=== PATIENT | male | born 1930 | race Caucasian/White ===

== ENCOUNTER 2017-09-13 07:23 | Emergency (ER) | payer MEDICARE, OTHER ==
[2017-09-13] MEDS ORDERED: LORazepam 2 MG/ML MDV IVPUSH ONE ×4 (07:28→09:13)
[2017-09-13] MEDS ORDERED: Fosphenytoin 500 MG.PE in Sodium Chloride 0.9% 50 ML IV ONE ×2 (07:39→08:00)
[2017-09-13] MEDS ORDERED: Sodium Chloride 0.9% 1,000 ML IV SCH (07:45)
[2017-09-13] MEDS ORDERED: SODIUM CHLORIDE IV ONE ×2 (08:17→08:30)
[2017-09-13] MEDS ORDERED: [UNRECOGNIZED DRUG - OTHER] IV ONE ×2 (08:17→08:30)
[2017-09-13] MEDS ORDERED: FOSPHENYTOIN IV ONE ×2 (08:17→08:30)
--- NOTE | 2017-09-13 08:36 | EDM.PDOC ---
ED HPI GENERAL MEDICAL PROBLEM - General Chief Complaint: Neuro Symptoms/Deficits Stated Complaint: MEDICAL Time Seen by Provider: 09/13/17 07:30 Source of Information: Reports: EMS, Family History Limitations: Reports: No Limitations - History of Present Illness INITIAL COMMENTS - FREE TEXT/NARRATIVE: Pt has a long history of seizure activity but has not had a seizure for several years, He woke up this am and he had a very extended seizure. When further history was obtained he had a severe seizure in [place] about 37 years ago. He was a heavy drinker at that time. He no longer drinks. According to the family since that seizure they do not know of any other sizures until today. He has been more agitated in the past few days. He does have fairly severe dementia to the [point he does not know some of his grand children. Onset: Today, Sudden Duration: Hour(s): Location: Reports: Head Associated Symptoms: Reports: Confusion, Seizure - Related Data Allergies Allergy/AdvReac Type Severity Reaction Status Date / Time No Known Allergies Allergy Verified 09/13/17 07:30 ED ROS GENERAL - Review of Systems Review Of Systems: See Below Constitutional: Reports: Malaise, Other (pt has been more agitated. ) HEENT: Reports: No Symptoms Respiratory: Reports: No Symptoms Cardiovascular: Reports: No Symptoms Endocrine: Reports: No Symptoms GI/Abdominal: Reports: No Symptoms : Reports: No Symptoms Musculoskeletal: Reports: No Symptoms Skin: Reports: No Symptoms ED EXAM, NEURO - Physical Exam Exam: See Below Text/Narrative:: pt was very confused and somewhat combative on arrival. He had a nother seizure after arrival. He has had 2 smaller seizures since that time. Exam Limited By: Other (pt did need to be restrained.) General Appearance: Alert, Anxious, Other ( confused. pupils are equal and reactive. ) Ears: Normal TMs Nose: Normal Inspection Throat/Mouth: Normal Inspection Respiratory/Chest: No Respiratory Distress Cardiovascular: Regular Rate, Rhythm, Other (pt on ekg has a left bundle branch block) GI/Abdominal: Soft (Male) Exam: Deferred Rectal (Males) Exam: Deferred Neurological: Alert, Other (pt is confused and with all themeds is very sleepy. He has needed to be restraimned/ ) Back Exam: Normal Inspection Extremities: Normal Inspection Psychiatric: Anxious Course - Vital Signs Last Recorded V/S: Last Vital Signs Temp 36.7 C 09/13/17 07:30 Pulse 138 H 09/13/17 09:30 Resp 11 L 09/13/17 08:45 BP 154/131 H 09/13/17 09:30 Pulse Ox 94 L 09/13/17 08:45 - Orders/Labs/Meds Labs: Laboratory Tests 09/13/17 09/13/17 09/13/17 Range/Units 07:52 07:52 08:38 WBC 9.8 (4.5-11.0) K/uL RBC 4.70 (4.30-5.90) M/uL Hgb 15.4 H (12.0-15.0) g/dL Hct 44.5 (40.0-54.0) % MCV 95 (80-98) fL MCH 33 H (27-31) pg MCHC 35 (32-36) % Plt Count 171 (150-400) K/uL Neut % (Auto) 81 H (36-66) % Lymph % (Auto) 12 L (24-44) % [place] % (Auto) 6 (2-6) % Eos % (Auto) 2 (2-4) % Baso % (Auto) 0 (0-1) % Sodium 135 L (140-148) mmol/L Potassium 3.7 (3.6-5.2) mmol/L Chloride 99 L (100-108) mmol/L Carbon Dioxide 19 L (21-32) mmol/L Anion Gap 20.7 H (5.0-14.0) mmol/L BUN 9 (7-18) mg/dL Creatinine 1.7 H (0.8-1.3) mg/dL Est Cr Clr Drug Dosing TNP Estimated GFR (MDRD) 38 L (>60) Glucose 170 H (74-106) mg/dL Calcium 9.0 (8.5-10.1) mg/dL Total Bilirubin 1.0 (0.2-1.0) mg/dL AST 33 (15-37) U/L ALT 25 (12-78) U/L Alkaline Phosphatase 84 (46-116) U/L Total Protein 6.8 (6.4-8.2) g/dL Albumin 3.4 (3.4-5.0) g/dL Globulin 3.4 (2.3-3.5) g/dL Albumin/Globulin Ratio 1.0 L (1.2-2.2) Urine Color Yellow Urine Appearance Clear Urine pH 6.5 (4.5-8.0) Ur Specific [place] 1.010 (1.008-1.030) Urine Protein 500 H (NEGATIVE) mg/dL Urine Glucose (UA) Normal (NEGATIVE) mg/dL Urine Ketones Negative (NEGATIVE) mg/dL Urine Occult Blood Moderate (NEGATIVE) Urine Nitrite Negative (NEGAITVE) Urine Bilirubin Negative (NEGATIVE) Urine Urobilinogen Normal (NORMAL) mg/dL Ur Leukocyte Esterase Negative (NEGATIVE) Urine RBC 5-10 H (0-5) Urine WBC Not seen (0-5) Ur Epithelial Cells Not seen Amorphous Sediment Not seen Urine Bacteria Not seen Urine Mucus Not seen Meds: Medications Discontinued Medications Generic Name Dose Route Start Last Admin Trade Name Freq PRN Reason Stop Dose Admin Sodium Chloride 1,000 mls @ 200 mls/hr 09/13/17 07:45 09/13/17 08:26 Normal Saline IV 200 mls/hr ASDIRECTED MIKHAIL Administration Fosphenytoin Sodium 500 mg.pe/ 60 mls @ 200 mls/hr 09/13/17 08:00 09/13/17 07 :55 Sodium Chloride IV 09/13/17 08:17 200 mls/hr ONETIME ONE Administration Fosphenytoin Sodium 250 mg.pe/ 55 mls @ 200 mls/hr 09/13/17 08:30 09/13/17 08 :40 Sodium Chloride IV 09/13/17 08:46 200 mls/hr NOW ONE Administration Lorazepam 0.5 mg 09/13/17 07:28 09/13/17 07:32 Ativan IVPUSH 09/13/17 07:29 0.5 mg ONETIME ONE Administration Lorazepam 1 mg 09/13/17 07:47 09/13/17 07:36 Ativan IVPUSH 09/13/17 07:48 1 mg ONETIME ONE Administration Lorazepam 0.5 mg 09/13/17 07:48 09/13/17 07:34 Ativan IVPUSH 09/13/17 07:49 0.5 mg ONETIME ONE Administration Lorazepam 1 mg 09/13/17 09:13 09/13/17 09:00 Ativan IVPUSH 09/13/17 09:14 1 mg ONETIME ONE Administration - Re-Assessments/Exams Free Text/Narrative Re-Assessment/Exam: 09/13/17 09:10 pt was given iv ativan a total of 2.5 mg. he has been given dilantin 1v a totAL of 750mg. He does have a creatnine of 1.7. His lab work otherwise Looked fairly good. He had a cat scan of the head which did not have acute findings. hE DID CONTINUE TO HAVE MULTIPLE SEIZURES. 09/18/17 10:27 Departure - Departure Time of Disposition: 09:12 Disposition: DC/Tfer to Acute Hospital 02 Condition: Fair Clinical Impression: Increasing frequency of seizure activity, Renal insufficiency - Discharge Information Referrals: PCP,None [Primary Care Provider] - Forms: ED Department Discharge Care Plan Goals: transfer to [facility]. Critical Care Note - Critical Care Note Total Time (mins): 30 Comments: pt arrived after having a extended seizure. He has had 3 other sizures since that time. He has been given 3.5 mg of ativan and he has been loaded with iv dilantin. He had a cat scan of the head which was neg. He has o2 therapy to support him. His bp has been up and down.
== END 2017-09-13 09:40 ==
LOC: JP.ED 07:23
DX: R56.9 Unspecified convulsions (principal); N28.9 Disorder of kidney and ureter, unspecified
CPT/HCPCS: 36415; 51702; 70450; 80053; 81001; 82962; 85025; 93005; 96361; 96365; 96375; 99285; J2060; J7040; J7050; Q2009; 93010

== ENCOUNTER 2017-11-25 13:22 | Emergency (ER) | payer MEDICARE, OTHER ==
[2017-11-25] MEDS ORDERED: Ketorolac 30 MG/ML SDV IM ONE (14:12)
[2017-11-25] MEDS ORDERED: Glycerin Adult 2.1 GM Supp RECTAL ONE (14:13)
[2017-11-25] MEDS ORDERED: Acetaminophen/HYDROcodone 325-5 MG Tab PO ONE (14:13)
--- NOTE | 2017-11-25 14:19 | EDM.PDOC ---
ED HPI GENERAL MEDICAL PROBLEM - General Chief Complaint: Back Pain or Injury Stated Complaint: BACK PAIN VIA [place]TH Time Seen by Provider: 11/25/17 14:00 Source of Information: Reports: Patient, Family, Old Records, RN History Limitations: Reports: No Limitations - History of Present Illness INITIAL COMMENTS - FREE TEXT/NARRATIVE: 87 yo male with dementia presents via EMS from his home accompanied by his daughter. He fell on Wednesday landing forcibly on his butt. Now complains of mid back pain much worse with movement. Has not had a BM since the injury. Is urinating in a jug. Eating and drinking OK. Not getting out of bed due to the pain. Onset: Sudden Onset Date: 11/23/17 Duration: Day(s): (2), Constant Location: Reports: Back. Denies: Radiates to Quality: Reports: Sharp Severity: Severe (with movement, no pain at rest.) Improves with: Reports: Rest Worsens with: Reports: Movement Context: Reports: Trauma (elderly fall) Associated Symptoms: Reports: No Other Symptoms Treatments [place] SLABS: Reports: Other (see below) (none) - Related Data Allergies Allergy/AdvReac Type Severity Reaction Status Date / Time No Known Allergies Allergy Verified 11/25/17 13:29 Home Meds: Home Meds Acetaminophen/HYDROcodone [Woodruff 325-5 MG] 1 - 2 tab PO Q6H PRN #20 tab [Rx] Cyanocobalamin (Vitamin B-12) [Vitamin B-12] 1,000 mcg SL DAILY 11/25/17 [ History] Lisinopril 40 mg PO DAILY 11/25/17 [History] Metoprolol Tartrate 100 mg PO BID 11/25/17 [History] Simvastatin [Zocor] 20 mg PO BEDTIME 11/25/17 [History] amLODIPine Besylate [Amlodipine Besylate] 5 mg PO DAILY 11/25/17 [History] hydrALAZINE [Apresoline] 50 mg PO BID 11/25/17 [History] levETIRAcetam [Keppra] 500 mg PO BID 11/25/17 [History] Past Medical History - Past Health History Medical/Surgical History: Denies Medical/Surgical History Cardiovascular History: Reports: High Cholesterol, Hypertension, [place], Stents Genitourinary History: Reports: Retention, Urinary Musculoskeletal History: Reports: Back Pain, Chronic, Fracture Neurological History: Reports: Alzheimers Disease, Seizure Oncologic (Cancer) History: Reports: Colon, Malignant Melanoma Dermatologic History: Reports: Melanoma - Past Surgical History Cardiovascular Surgical History: Reports: Coronary Artery Stent GI Surgical History: Reports: Small Bowel Musculoskeletal Surgical History: Reports: ORIF Social & Family History - Tobacco Use Smoking Status *Q: Never Smoker - Caffeine Use Caffeine Use: Reports: Coffee - Recreational Drug Use Recreational Drug Use: No ED ROS GENERAL - Review of Systems Review Of Systems: See Below Constitutional: Reports: No Symptoms HEENT: Reports: No Symptoms Respiratory: Reports: No Symptoms Cardiovascular: Reports: No Symptoms GI/Abdominal: Reports: Constipation : Reports: No Symptoms Musculoskeletal: Reports: Back Pain Skin: Reports: No Symptoms Neurological: Reports: Confusion (chronic due to dementia) ED EXAM,LOWER BACK PAIN/INJURY - Physical Exam Exam: See Below Exam Limited By: No Limitations General Appearance: Alert, WD/WN, No Apparent Distress Eye Exam: Bilateral Eye: Normal Inspection Ears: Normal External Exam, Normal Canal, Hearing Grossly Normal Nose: Normal Inspection, Normal Mucosa, No Blood Throat/Mouth: Normal Inspection, Normal Lips, Normal Oropharynx, Normal Voice, No Airway Compromise Head: Atraumatic, Normocephalic Neck: Normal Inspection, Supple Respiratory/Chest: No Respiratory Distress, Lungs Clear, Normal Breath Sounds, No Accessory Muscle Use Cardiovascular: Regular Rate, Rhythm, No Edema GI/Abdominal: Normal Bowel Sounds, Soft, Non-Tender Back Exam: Normal Inspection, Vertebral Tenderness (upper L spine/lower T spine) . No: CVA Tenderness (R), CVA Tenderness (L) Extremities: Normal Inspection, Normal Range of Motion, Non-Tender, No Pedal Edema Neurological: Alert, Normal Mood/Affect, CN II-XII Intact, No Motor/Sensory Deficits Psychiatric: Normal Affect, Normal Mood Skin Exam: Warm, Dry, Intact, Normal Color, No Rash Course - Vital Signs Text/Narrative:: After Toradol 30 mg IM and Woodruff 1 po was able to walk with a walker in the ER. Last Recorded V/S: Last Vital Signs Temp 37.1 C 11/25/17 15:23 Pulse 60 11/25/17 15:23 Resp 14 11/25/17 15:23 BP 165/99 H 11/25/17 15:23 Pulse Ox 99 11/25/17 15:23 - Orders/Labs/Meds Orders: Active Orders 24 hr Category Date Time Status Lumbar Spine 2 or 3V [CR] Stat Exams 11/25/17 14:19 Ordered Thoracic Spine 2V [CR] Stat Exams 11/25/17 14:20 Taken Meds: Medications Discontinued Medications Generic Name Dose Route Start Last Admin Trade Name Freq PRN Reason Stop Dose Admin Hydrocodone Bitart/Acetaminophen 1 tab 11/25/17 14:13 11/25/17 14:18 Woodruff 325-5 Mg PO 11/25/17 14:14 1 tab ONETIME ONE Administration Glycerin 1 supp 11/25/17 14:13 11/25/17 14:19 Sani-Supp Adult RECTAL 11/25/17 14:14 1 supp ONETIME ONE Administration Ketorolac Tromethamine 30 mg 11/25/17 14:12 11/25/17 14:18 Toradol IM 11/25/17 14:13 30 mg STAT ONE Administration Polyethylene Glycol 17 gm 11/25/17 14:40 Miralax PO 11/25/17 14:41 ONETIME ONE - Radiology Interpretation Free Text/Narrative:: L spine X-ray-degen changes, no clear compression fx's T-spine X-ray-degen changes, no clear compression fx's Departure - Departure Time of Disposition: 15:46 Disposition: Home, Self-Care 01 Condition: Fair Clinical Impression: Back pain Qualifiers: Back pain location: thoracic back pain Chronicity: acute Back pain laterality: midline Qualified Code(s): M54.6 - Pain in thoracic spine - Discharge Information Prescriptions: Acetaminophen/HYDROcodone [Woodruff 325-5 MG] 1 - 2 tab PO Q6H PRN #20 tab PRN Reason: Pain Referrals: Bogdan Roe MD [Primary Care Provider] - Forms: ED Department Discharge - My Orders Last 24 Hours: My Active Orders 11/25/17 14:19 Lumbar Spine 2 or 3V [CR] Stat 11/25/17 14:20 Thoracic Spine 2V [CR] Stat - Assessment/Plan Last 24 Hours: My Active Orders 11/25/17 14:19 Lumbar Spine 2 or 3V [CR] Stat 11/25/17 14:20 Thoracic Spine 2V [CR] Stat
[2017-11-25] MEDS ORDERED: Polyethylene Glycol 3350 Powder 17 GM Packet PO ONE (14:40)
--- NOTE | 2017-11-26 09:12 | CR ---
Lumbar Spine 2 or 3V CLINICAL HISTORY: Mid back pain FINDINGS: There is a mild compression deformity of T11 and T12 of unknown chronology. There is modera te diffuse degenerative disc disease with moderate to severe spondylosis. There is moderate osteoarth ropathy in the lower lumbar facets. IMPRESSION: Severe diffuse spondylosis Moderate osteoarthropathy. Mild compression deformities T11 and T12 of unknown chronology
--- NOTE | 2017-11-26 10:04 | CR ---
Thoracic Spine 2V CLINICAL HISTORY: Fall, pain FINDINGS: There are mild compression deformities of T11 and T12. Age unknown. There is diffuse disc s pace narrowing and spondylosis. Pedicles appear intact. Impression: Mild compression deformities of T11 and T12 age unknown. Moderate diffuse degenerative disc disease with spondylosis Incidental note of bilateral cervical ribs
== END 2017-11-25 16:18 | disposition home or self-care (01) ==
LOC: JP.ED 13:22
DX: M54.6 Pain in thoracic spine (principal); E78.00 Pure hypercholesterolemia, unspecified; I10 Essential (primary) hypertension; I25.2 Old myocardial infarction
CPT/HCPCS: 72070; 72100; 96372; 99284; A9270; J1885

== ENCOUNTER 2017-11-29 11:16 | Inpatient (IN) | payer MEDICARE, OTHER ==
[2017-11-29] MEDS ORDERED: Ketorolac 30 MG/ML SDV IVPUSH ONE (11:33)
--- NOTE | 2017-11-29 11:39 | EDM.PDOC ---
ED HPI GENERAL MEDICAL PROBLEM - General Chief Complaint: General Stated Complaint: [facility] Time Seen by Provider: 11/29/17 11:25 Source of Information: Reports: Patient, Old Records, RN History Limitations: Reports: Other (patient has dementia) - History of Present Illness INITIAL COMMENTS - FREE TEXT/NARRATIVE: 87 yo male was seen in the ER the end of last week for back pain that may have been some mild compression fx's of T11 and T12, radiology was not clear on the age of these since there were no old films. Patient was asked to take ibuprofen and [place] for the pain, to take Miralax once or twice daily to prevent constipation, and to see Dr. Roe early this week for recheck. This patient states he lives with family, is not taking the Miralax, and still has back pain. The family did call Dr. Roe's office today and were directed to the ER. It is not clear how much of Xavi's history today is accurate as family is not yet here and EMS contradicts some of what Xavi is telling me(they implied constipation was reported by family). Family feels that are not able to care for him anymore with the added problem of back pain with reduced mobility. Family inquired about placement. Daughter says he's not eating, drinking, or pooping and his urine is dark. Onset Date: 11/26/17 Duration: Day(s):, Constant Location: Reports: Back Quality: Reports: Ache Severity: Moderate Improves with: Reports: Rest Worsens with: Reports: Movement Context: Reports: Trauma (elderly fall) Associated Symptoms: Reports: Other (? 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: Other (see below) (unclear, [place] and ibuprofen prescribed as well as Miralax) - Related Data Allergies Allergy/AdvReac Type Severity Reaction Status Date / Time No Known Allergies Allergy Verified 11/29/17 11:25 Home Meds: Home Meds Acetaminophen/HYDROcodone [[place] 325-5 MG] 1 - 2 tab PO Q6H PRN #20 tab [Rx] Cyanocobalamin (Vitamin B-12) [Vitamin B-12] 1,000 mcg SL DAILY 11/25/17 [ History] Lisinopril 40 mg PO DAILY 11/25/17 [History] Metoprolol Tartrate 100 mg PO BID 11/25/17 [History] Simvastatin [Zocor] 20 mg PO BEDTIME 11/25/17 [History] amLODIPine Besylate [Amlodipine Besylate] 5 mg PO DAILY 11/25/17 [History] hydrALAZINE [Apresoline] 50 mg PO BID 11/25/17 [History] levETIRAcetam [Keppra] 500 mg PO BID 11/25/17 [History] Polyethylene Glycol 3350 [MiraLAX] 1 packet PO BID 11/29/17 [History] Past Medical History - Past Health History Medical/Surgical History: Denies Medical/Surgical History Cardiovascular History: Reports: High Cholesterol, Hypertension, PA, Stents Genitourinary History: Reports: Retention, Urinary Musculoskeletal History: Reports: Back Pain, Chronic, Fracture Neurological History: Reports: Alzheimers Disease, Seizure Oncologic (Cancer) History: Reports: Colon, Malignant Melanoma Dermatologic History: Reports: Melanoma - Past Surgical History Cardiovascular Surgical History: Reports: Coronary Artery Stent GI Surgical History: Reports: Small Bowel Musculoskeletal Surgical History: Reports: ORIF Social & Family History - Tobacco Use Smoking Status *Q: Never Smoker - Caffeine Use Caffeine Use: Reports: Coffee - Recreational Drug Use Recreational Drug Use: No ED ROS GENERAL - Review of Systems Review Of Systems: See Below Constitutional: Reports: No Symptoms HEENT: Reports: No Symptoms Respiratory: Reports: No Symptoms Cardiovascular: Reports: No Symptoms GI/Abdominal: Reports: No Symptoms. Denies: Constipation (denied by patient, reported by EMS per family) : Reports: No Symptoms Musculoskeletal: Reports: Back Pain Skin: Reports: No Symptoms Neurological: Reports: No Symptoms Psychiatric: Reports: Confusion (mild, chronic due to dementia) ED EXAM, GENERAL - Physical Exam Exam: See Below Exam Limited By: No Limitations General Appearance: Alert, WD/WN, No Apparent Distress Eye Exam: Bilateral Eye: Normal Inspection Ears: Normal External Exam, Normal Canal, Hearing Grossly Normal, Normal TMs Ear Exam: Bilateral Ear: Auricle Normal, Canal Normal, TM normal Nose: Normal Inspection, Normal Mucosa Throat/Mouth: Normal Inspection, Normal Lips, Normal Oropharynx, Normal Voice, No Airway Compromise. No: Normal Teeth (poor dentitian) Head: Atraumatic, Normocephalic Neck: Normal Inspection, Supple Respiratory/Chest: No Respiratory Distress, Lungs Clear, Normal Breath Sounds, No Accessory Muscle Use GI/Abdominal: Normal Bowel Sounds, Soft, Non-Tender Back Exam: Normal Inspection, Paraspinal Tenderness, Vertebral Tenderness (mid back). No: CVA Tenderness (R), CVA Tenderness (L) Extremities: Normal Inspection, Normal Range of Motion, Non-Tender, No Pedal Edema Neurological: Alert, Oriented, CN II-XII Intact, No Motor/Sensory Deficits Psychiatric: Normal Affect, Normal Mood Skin Exam: Warm, Dry, Intact, Normal Color, No Rash Lymphatic: No Adenopathy Course - Vital Signs Last Recorded V/S: Last Vital Signs Temp 35.4 C 12/01/17 15:00 Pulse 50 L 12/01/17 15:00 Resp 16 12/01/17 15:00 BP 107/64 12/01/17 15:00 Pulse Ox 95 12/01/17 15:00 - Orders/Labs/Meds Orders: Medication Orders Acetaminophen (Tylenol Extra Strength) 1,000 mg PO TID [facility] Last Admin: 12/01/17 14:55 Dose: 1,000 mg Admin: 12/01/17 10:00 Dose: 1,000 mg Admin: 11/30/17 21:02 Dose: 1,000 mg Admin: 11/30/17 13:36 Dose: 1,000 mg Admin: 11/30/17 09:00 Dose: 1,000 mg Admin: 11/29/17 19:11 Dose: 1,000 mg Amlodipine Besylate (Norvasc) 5 mg PO DAILY [facility] Last Admin: 12/01/17 10:01 Dose: 5 mg Aspirin (Halfprin) 81 mg PO DAILY [facility] Last Admin: 12/01/17 10:00 Dose: 81 mg Admin: 11/30/17 09:03 Dose: 81 mg Admin: 11/29/17 20:35 Dose: 81 mg Bisacodyl (Dulcolax) 10 mg RECTAL DAILY PRN PRN Reason: CONSTIPATION Gabapentin (Neurontin) 200 mg PO BID [facility] Last Admin: 12/01/17 12:44 Dose: 200 mg Haloperidol (Haldol) 1 mg PO Q4H PRN PRN Reason: Agitation Lidocaine (Lidoderm 5%) 700 mg TOP Q24H [facility] Last Admin: 12/01/17 10:01 Dose: 700 mg Magnesium Hydroxide (Milk Of Magnesia) 30 ml PO BID PRN PRN Reason: CONSTIPATION Melatonin (Melatonin) 9 mg PO BEDTIME [facility] Last Admin: 11/30/17 20:58 Dose: 9 mg Admin: 11/29/17 20:35 Dose: 9 mg Remove Lidocaine (Patch) 0 each TOP Q24H [facility] Metoprolol Tart (100mg (Ptom)) 0 each PO BID [facility] Last Admin: 12/01/17 10:01 Dose: 1 each Admin: 11/30/17 21:00 Dose: 1 each Hydralazine 50mg ( (Ptom)) 0 each PO BID [facility] Last Admin: 12/01/17 10:01 Dose: 1 each Admin: 11/30/17 21:01 Dose: 1 each Lisinopril 40mg ( (Ptom)) 0 each PO DAILY [facility] Last Admin: 12/01/17 10:01 Dose: 1 each Levetiracetam 500mg ((Ptom)) 0 each PO BID [facility] Last Admin: 12/01/17 10:00 Dose: 1 each Admin: 11/30/17 21:00 Dose: 1 each Polyethylene Glycol (Miralax) 17 gm PO DAILY PRN PRN Reason: CONSTIPATION Risperidone (Risperidal) 0.5 mg PO BEDTIME [facility] Last Admin: 11/30/17 21:02 Dose: 0.5 mg Tamsulosin HCl (Flomax) 0.4 mg PO DAILY [facility] Last Admin: 12/01/17 10:00 Dose: 0.4 mg Admin: 11/30/17 11:57 Dose: Not Given Admin: 11/30/17 09:01 Dose: 0.4 mg Labs: Laboratory Tests 11/29/17 11/29/17 11/29/17 Range/Units 11:37 11:37 13:52 WBC 5.3 (4.5-11.0) K/uL RBC 4.09 L (4.30-5.90) M/uL Hgb 13.4 D (12.0-15.0) g/dL Hct 38.9 L (40.0-54.0) % MCV 95 (80-98) fL MCH 33 H (27-31) pg MCHC 34 (32-36) % Plt Count 149 L (150-400) K/uL Sodium 141 (140-148) mmol/L Potassium 3.4 L (3.6-5.2) mmol/L Chloride 105 (100-108) mmol/L Carbon Dioxide 24 (21-32) mmol/L Anion Gap 15.4 H (5.0-14.0) mmol/L BUN 22 H D (7-18) mg/dL Creatinine 1.2 (0.8-1.3) mg/dL Est Cr Clr Drug Dosing 43.54 mL/min Estimated GFR (MDRD) 58 L (>60) Glucose 116 H (74-106) mg/dL Calcium 8.9 (8.5-10.1) mg/dL Urine Color Yellow Urine Appearance Clear Urine pH 5.0 (4.5-8.0) Ur Specific [place] 1.015 (1.008-1.030) Urine Protein 500 H (NEGATIVE) mg/dL Urine Glucose (UA) Normal (NEGATIVE) mg/dL Urine Ketones Negative (NEGATIVE) mg/dL Urine Occult Blood Negative (NEGATIVE) Urine Nitrite Negative (NEGAITVE) Urine Bilirubin Small (NEGATIVE) Urine Urobilinogen 4 (NORMAL) mg/dL Ur Leukocyte Esterase Negative (NEGATIVE) Urine RBC 0-5 (0-5) Urine WBC 0-5 (0-5) Ur Epithelial Cells Not seen Amorphous Sediment Not seen Urine Bacteria Not seen Urine Mucus Not seen Meds: Medications Generic Name Dose Route Start Last Admin Trade Name Freq PRN Reason Stop Dose Admin Acetaminophen 1,000 mg 11/29/17 21:00 12/01/17 14:55 Tylenol Extra Strength PO 1,000 mg TID MIKHAIL Administration Amlodipine Besylate 5 mg 12/01/17 09:00 12/01/17 10:01 Norvasc PO 5 mg DAILY MIKHAIL Administration Aspirin 81 mg 11/29/17 17:00 12/01/17 10:00 Halfprin PO 81 mg DAILY MIKHAIL Administration Bisacodyl 10 mg 11/29/17 16:15 Dulcolax RECTAL DAILY PRN CONSTIPATION Gabapentin 200 mg 12/01/17 11:30 12/01/17 12:44 Neurontin PO 200 mg BID MIKHAIL Administration Haloperidol 1 mg 11/30/17 10:52 Haldol PO Q4H PRN Agitation Lidocaine 700 mg 12/01/17 10:00 12/01/17 10:01 Lidoderm 5% TOP 700 mg Q24H MIKHAIL Administration Magnesium Hydroxide 30 ml 11/29/17 16:15 Milk Of Magnesia PO BID PRN CONSTIPATION Melatonin 9 mg 11/29/17 21:00 11/30/17 20:58 Melatonin PO 9 mg BEDTIME MIKHAIL Administration Remove Lidocaine 0 each 12/01/17 22:00 Patch TOP Q24H MIKHAIL Metoprolol Tart 0 each 11/30/17 21:00 12/01/17 10:01 100mg (Ptom) PO 1 each BID MIKHAIL Administration Hydralazine 50mg ( 0 each 11/30/17 21:00 12/01/17 10:01 Ptom) PO 1 each BID MIKHAIL Administration Lisinopril 40mg ( 0 each 12/01/17 09:00 12/01/17 10:01 Ptom) PO 1 each DAILY MIKHAIL Administration Levetiracetam 500mg 0 each 11/30/17 21:00 12/01/17 10:00 (Ptom) PO 1 each BID MIKHAIL Administration Polyethylene Glycol 17 gm 11/29/17 17:00 Miralax PO DAILY PRN CONSTIPATION Risperidone 0.5 mg 11/30/17 21:00 11/30/17 21:02 Risperidal PO 0.5 mg BEDTIME MIKHAIL Administration Tamsulosin HCl 0.4 mg 11/29/17 17:00 12/01/17 10:00 Flomax PO 0.4 mg DAILY MIKHAIL Administration Discontinued Medications Generic Name Dose Route Start Last Admin Trade Name Freq PRN Reason Stop Dose Admin Amlodipine Besylate 5 mg 11/29/17 17:00 11/30/17 09:03 Norvasc PO 5 mg DAILY MIKHAIL Administration Amlodipine Besylate Confirm 11/29/17 20:41 11/30/17 11:57 Norvasc Administered 11/29/17 20:42 Not Given Dose 5 mg .ROUTE .STK-MED ONE Bisacodyl 10 mg 11/29/17 11:49 11/29/17 11:57 Dulcolax RECTAL 11/29/17 11:50 10 mg ONETIME ONE Administration Hydralazine HCl 50 mg 11/29/17 21:00 11/30/17 09:01 Apresoline PO 50 mg BID MIKHAIL Administration Sodium Chloride 1,000 mls @ 100 mls/hr 11/29/17 16:15 11/29/17 20:30 Normal Saline IV 100 mls/hr ASDIRECTED MIKHAIL Administration Ketorolac Tromethamine 15 mg 11/29/17 11:33 11/29/17 11:44 Toradol IVPUSH 11/29/17 11:34 15 mg ONETIME ONE Administration Levetiracetam 500 mg 11/30/17 09:00 11/30/17 09:02 Keppra PO 500 mg BID MIKHAIL Administration Levetiracetam Confirm 11/29/17 21:30 11/29/17 21:30 Keppra Administered 11/29/17 21:31 500 mg Dose Administration 500 mg .ROUTE .STK-MED ONE Lisinopril 40 mg 11/29/17 17:00 11/30/17 09:02 Prinivil PO 40 mg DAILY MIKHAIL Administration Lorazepam 1 mg 11/30/17 01:40 11/30/17 01:50 Ativan IV 11/30/17 01:41 1 mg NOW ONE Administration Lorazepam Confirm 11/30/17 01:44 11/30/17 11:58 Ativan Administered 11/30/17 01:45 Not Given Dose 2 mg .ROUTE .STK-MED ONE Metoprolol Tartrate 100 mg 11/29/17 21:00 11/30/17 09:00 Lopressor PO 100 mg BID MIKHAIL Administration Potassium Chloride 40 meq 11/29/17 17:00 11/29/17 20:35 Klor-Con M20 PO 11/29/17 17:01 40 meq ONETIME ONE Administration Sodium Chloride 10 ml 11/29/17 18:00 11/30/17 11:57 Saline Flush IV 11/29/17 18:01 Not Given ONETIME ONE Tamsulosin HCl 0.4 mg 11/29/17 13:54 11/29/17 14:12 Flomax PO 11/29/17 13:55 0.4 mg ONETIME ONE Administration Departure - Departure Time of Disposition: 17:00 Disposition: Refer to Observation Condition: Fair Clinical Impression: Back pain Qualifiers: Back pain location: thoracic back pain Chronicity: acute Back pain laterality: midline Qualified Code(s): M54.6 - Pain in thoracic spine Constipation Qualifiers: Constipation type: unspecified constipation type Qualified Code(s): K59.00 - Constipation, unspecified BPH (benign prostatic hyperplasia) Qualifiers: Lower urinary tract symptom presence: symptoms present Lower urinary tract symptom detail: incomplete bladder emptying Qualified Code(s): N40.1 - Benign prostatic hyperplasia with lower urinary tract symptoms; R39.14 - Feeling of incomplete bladder emptying Dementia Qualifiers: Dementia type: unspecified type Dementia behavioral disturbance: without behavioral disturbance Qualified Code(s): F03.90 - Unspecified dementia without behavioral disturbance - Discharge Information
[2017-11-29] MEDS ORDERED: Bisacodyl 10 MG Supp RECTAL ONE (11:49)
[2017-11-29] MEDS ORDERED: Tamsulosin 0.4 MG Cap.ER PO ONE (13:54)
[2017-11-29] MEDS ORDERED: Sodium Chloride 0.9% 1,000 ML IV SCH (16:15)
[2017-11-29] MEDS ORDERED: Polyethylene Glycol 3350 Powder 17 GM Packet PO PRN (17:00)
[2017-11-29] MEDS ORDERED: Sodium Chloride 0.9% 10 ML Syringe IV ONE (18:00)
[2017-11-29] MEDS: Acetaminophen 500 MG Tab PO SCH (19:11)
[2017-11-29] MEDS: Potassium Chloride 20 MEQ Tab.ER PO ONE (20:35)
[2017-11-29] MEDS: amLODIPine 5 MG Tab PO SCH (20:35)
[2017-11-29] MEDS: Melatonin 3 MG Tab PO SCH (20:35)
[2017-11-29] MEDS: hydrALAZINE 25 MG Tab PO SCH (20:35)
[2017-11-29] MEDS: Metoprolol Tartrate 50 MG Tab PO SCH (20:35)
[2017-11-29] MEDS: Lisinopril 20 MG Tab PO SCH (20:35)
[2017-11-29] MEDS: Aspirin 81 MG Tab.EC PO SCH (20:35)
[2017-11-29] MEDS ORDERED: amLODIPine 5 MG Tab ONE (20:41)
[2017-11-29] MEDS: levETIRAcetam 250 MG Tab ONE (21:30)
[2017-11-30] MEDS ORDERED: LORazepam 2 MG/ML SDV ONE (01:44)
[2017-11-30] MEDS: LORazepam 2 MG/ML SDV IV ONE ×2 (01:50→11:58)
[2017-11-30] MEDS: Metoprolol Tartrate 50 MG Tab PO SCH ×2 (09:00→11:58)
[2017-11-30] MEDS ORDERED: levETIRAcetam 250 MG Tab PO SCH (09:00)
[2017-11-30] MEDS: Acetaminophen 500 MG Tab PO SCH ×4 (09:00→21:02)
[2017-11-30] MEDS: hydrALAZINE 25 MG Tab PO SCH ×2 (09:01→11:58)
[2017-11-30] MEDS: Tamsulosin 0.4 MG Cap.ER PO SCH ×2 (09:01→11:57)
[2017-11-30] MEDS: Lisinopril 20 MG Tab PO SCH ×2 (09:02→11:57)
[2017-11-30] MEDS: Aspirin 81 MG Tab.EC PO SCH ×2 (09:03→11:57)
[2017-11-30] MEDS: amLODIPine 5 MG Tab PO SCH ×2 (09:03→11:57)
--- NOTE | 2017-11-30 09:56 | HP ---
CHIEF COMPLAINT: Weakness. HISTORY OF PRESENT ILLNESS: Xavi presents to the emergency room today with several family members. He has advanced dementia and is unable to provide any history at this time. His daughters report that he has had significant difficulty over the past week or so after he had a fall that resulted in mild compression fractures of his lumbar spine as well as mild head trauma. He was evaluated in the emergency room at that time and other than the mild compression fractures, no acute abnormalities were found. They report that since that time, he has been hollering out in pain and appears to have lower back pain. He tells me that currently he is pain-free and does not think he has been having back pain. They report that he has been more confused than usual over the past week. He has been hallucinating and seeing a dog running around the emergency room as well as wanting a ladder to get up into the ceiling, so he can be near the people who are up there. They have noted constipation, he has not had a bowel movement in approximately 1 week. He did have a small one today. They have noticed a decrease in his appetite and he has had very little to eat or drink and the quantity has been decreasing over the past several days. He has not reported any headaches. They have noticed increasing weakness and unsteadiness on his feet. He has been very sleepy. He has been refusing to take pills from time to time. They felt that they were unable to care for him today, so he was brought in for evaluation. PAST MEDICAL HISTORY: Remarkable for essential hypertension, hypercholesterolemia, Alzheimer's dementia, recent admission with acute kidney injury on top of chronic kidney disease, probable BPH, obesity. MEDICATIONS: Metoprolol tartrate 100 mg by mouth twice daily, amlodipine 5 mg by mouth daily, hydralazine 50 mg by mouth twice daily, aspirin 81 mg by mouth daily, simvastatin 20 mg by mouth at bedtime, Keppra 500 mg by mouth twice daily, hydrocodone 5/325 mg by mouth as needed for pain. SOCIAL HISTORY: Unable to review at this time because of his dementia. Family reports that he is not currently using tobacco or alcohol products. FAMILY HISTORY: Unable to review at this time because of his dementia. REVIEW OF SYSTEMS: A complete 12-point review of systems was attempted, but because of his dementia, this was unreliable. PHYSICAL EXAMINATION: VITAL SIGNS: Blood pressure is 161/115 with a pulse of 61, respirations are 18, and O2 saturations 94% on room air. GENERAL: He is resting comfortably, he is not in any acute distress. HEENT: Mucous membranes are dry. He has poor dentition. Slight mattering of the right eye. Pupils are equal, round, and reactive to light. NECK: Supple. No lymphadenopathy, thyromegaly, or tenderness. CARDIAC: Regular rate and rhythm. No murmur, rub, or gallop. RESPIRATORY: Lungs are clear to auscultation bilaterally. No wheezing. ABDOMEN: Obese, soft, nontender, nondistended with no masses. BACK: He has very poor range of motion. He has vertebral tenderness around the lower thoracic spine, but no significant muscle spasm. EXTREMITIES: Warm and well perfused. There is no clubbing or cyanosis. He has no lower extremity edema. MUSCULOSKELETAL: No joint deformities or asymmetries. SKIN: He has several bruises in the right upper arm, left forearm as well as his left hand, but no rashes. NEUROLOGICAL: Cranial nerves II through XII are grossly intact. No significant dysarthria. No asymmetry of strength and strength is 5/5 throughout upper and lower extremities. Reflexes at the biceps, patella are both 1, slightly hypoactive, but symmetric. PSYCHIATRIC: He is resting comfortably, appears to have normal mood and is not anxious or agitated at this time. LABORATORY STUDIES: Potassium is 3.4. Kidney function was normal. White count was normal. IMAGING: Head CT is pending. ASSESSMENT AND PLAN: 1. Back pain with T11 and T12 compression fractures. These were mild and have been present for 1 week. He appears comfortable at this time and is not reporting any pain. Has an adverse reaction to most narcotics with increased agitation. Planning scheduled acetaminophen as well as a heating pad. We could consider lidocaine patch or topical analgesics. Physical Therapy will work with him tomorrow. Hopefully, this will improve his mobility. 2. Visual hallucinations. He did have a fall with head trauma and may have subdural hematoma. Head CT is pending. Concussion type symptoms could be possible with his fall and closed head trauma 1 week ago. No strong evidence to support infection at this time. No significant concerns with his home medications at this time. Planning melatonin at bedtime and could consider low-dose Haldol if there is ongoing agitation or hallucinations. 3. Hypokalemia, mild and will be replaced. 4. Alzheimer's dementia. He seems to have increased behaviors recently and it is not clear if this is related to his head trauma or intracranial pathology or progression of his Alzheimer's. He may need to consider antipsychotic if things do not improve. 5. Essential hypertension. Not well controlled at this time. Planning to continue usual home medications, but may need additional adjustments. 6. Stage 3 chronic kidney disease. Kidney function is stable at this time. 7. Maintenance issues. Deep vein thrombosis prophylaxis will be mechanical and stress ulcer prophylaxis is not indicated. CODE STATUS: DNR/DNI. ADMISSION STATUS: The patient will be referred to observation status for pain control and additional workup and monitoring with hallucinations. DISPOSITION: I would anticipate that he will be discharged either to home with home care, possibly to the detention depending on progression over the next 24-48 hours. Derek Monahan MD /[id number]
[2017-11-30] MEDS ORDERED: Haloperidol 1 MG Tab PO PRN (10:52)
--- NOTE | 2017-11-30 10:54 | PCM.PN ---
- General Info Date of Service: 11/30/17 Functional Status: Reports: Pain Controlled - Review of Systems General: Reports: Weakness Musculoskeletal: Reports: Back Pain Systems Review Comment:: Patient did not sleep well overnight but no acute issues. He did receive a dose of lorazepam to help him sleep around 1 AM and is still groggy this morning. He reports that his back is stiff but does not tell me about any back pain. He was able to get up with the assist of one small morning but required the assist to later in the morning. Did not appear to be hallucinating this morning but is reportedly later in the day. No fevers. - Patient Data Vitals - Most Recent: Last Vital Signs Temp 36.6 C 11/30/17 07:51 Pulse 63 11/30/17 09:00 Resp 16 11/30/17 07:51 BP 123/80 11/30/17 09:03 Pulse Ox 95 11/30/17 07:51 Weight - Most Recent: 90.718 kg I&O - Last 24 Hours: Intake & Output 11/29/17 11/30/17 11/30/17 22:59 06:59 14:59 Intake Total 480 250 Balance 480 250 Lab Results Last 24 Hours: Laboratory Results - last 24 hr 11/29/17 11/29/17 11/29/17 Range/Units 11:37 11:37 13:52 WBC 5.3 (4.5-11.0) K/uL RBC 4.09 L (4.30-5.90) M/uL Hgb 13.4 D (12.0-15.0) g/dL Hct 38.9 L (40.0-54.0) % MCV 95 (80-98) fL MCH 33 H (27-31) pg MCHC 34 (32-36) % Plt Count 149 L (150-400) K/uL Sodium 141 (140-148) mmol/L Potassium 3.4 L (3.6-5.2) mmol/L Chloride 105 (100-108) mmol/L Carbon Dioxide 24 (21-32) mmol/L Anion Gap 15.4 H (5.0-14.0) mmol/L BUN 22 H D (7-18) mg/dL Creatinine 1.2 (0.8-1.3) mg/dL Est Cr Clr Drug Dosing 43.54 mL/min Estimated GFR (MDRD) 58 L (>60) Glucose 116 H (74-106) mg/dL Calcium 8.9 (8.5-10.1) mg/dL Urine Color Yellow Urine Appearance Clear Urine pH 5.0 (4.5-8.0) Ur Specific [place] 1.015 (1.008-1.030) Urine Protein 500 H (NEGATIVE) mg/dL Urine Glucose (UA) Normal (NEGATIVE) mg/dL Urine Ketones Negative (NEGATIVE) mg/dL Urine Occult Blood Negative (NEGATIVE) Urine Nitrite Negative (NEGAITVE) Urine Bilirubin Small (NEGATIVE) Urine Urobilinogen 4 (NORMAL) mg/dL Ur Leukocyte Esterase Negative (NEGATIVE) Urine RBC 0-5 (0-5) Urine WBC 0-5 (0-5) Ur Epithelial Cells Not seen Amorphous Sediment Not seen Urine Bacteria Not seen Urine Mucus Not seen 11/30/17 11/30/17 Range/Units 04:30 04:30 WBC 6.5 (4.5-11.0) K/uL RBC 4.05 L (4.30-5.90) M/uL Hgb 13.0 (12.0-15.0) g/dL Hct 38.7 L (40.0-54.0) % MCV 96 (80-98) fL MCH 32 H (27-31) pg MCHC 34 (32-36) % Plt Count 152 (150-400) K/uL Sodium 145 (140-148) mmol/L Potassium 4.5 (3.6-5.2) mmol/L Chloride 109 H (100-108) mmol/L Carbon Dioxide 25 (21-32) mmol/L Anion Gap 15.5 H (5.0-14.0) mmol/L BUN 24 H (7-18) mg/dL Creatinine 1.3 (0.8-1.3) mg/dL Est Cr Clr Drug Dosing 40.19 mL/min Estimated GFR (MDRD) 52 L (>60) Glucose 118 H (74-106) mg/dL Calcium 9.0 (8.5-10.1) mg/dL Urine Color Urine Appearance Urine pH (4.5-8.0) Ur Specific [place] (1.008-1.030) Urine Protein (NEGATIVE) mg/dL Urine Glucose (UA) (NEGATIVE) mg/dL Urine Ketones (NEGATIVE) mg/dL Urine Occult Blood (NEGATIVE) Urine Nitrite (NEGAITVE) Urine Bilirubin (NEGATIVE) Urine Urobilinogen (NORMAL) mg/dL Ur Leukocyte Esterase (NEGATIVE) Urine RBC (0-5) Urine WBC (0-5) Ur Epithelial Cells Amorphous Sediment Urine Bacteria Urine Mucus Med Orders - Current: Current Medications Acetaminophen (Tylenol Extra Strength) 1,000 mg PO TID [facility] Last Admin: 11/30/17 09:00 Dose: 1,000 mg Amlodipine Besylate (Norvasc) 5 mg PO DAILY [facility] Last Admin: 11/30/17 09:03 Dose: 5 mg Aspirin (Halfprin) 81 mg PO DAILY [facility] Last Admin: 11/30/17 09:03 Dose: 81 mg Bisacodyl (Dulcolax) 10 mg RECTAL DAILY PRN PRN Reason: CONSTIPATION Haloperidol (Haldol) 1 mg PO Q4H PRN PRN Reason: Agitation Hydralazine HCl (Apresoline) 50 mg PO BID [facility] Last Admin: 11/30/17 09:01 Dose: 50 mg Levetiracetam (Keppra) 500 mg PO BID [facility] Last Admin: 11/30/17 09:02 Dose: 500 mg Lisinopril (Prinivil) 40 mg PO DAILY [facility] Last Admin: 11/30/17 09:02 Dose: 40 mg Magnesium Hydroxide (Milk Of Magnesia) 30 ml PO BID PRN PRN Reason: CONSTIPATION Melatonin (Melatonin) 9 mg PO BEDTIME [facility] Metoprolol Tartrate (Lopressor) 100 mg PO BID [facility] Last Admin: 11/30/17 09:00 Dose: 100 mg Polyethylene Glycol (Miralax) 17 gm PO DAILY PRN PRN Reason: CONSTIPATION Risperidone (Risperidal) 0.5 mg PO BEDTIME [facility] Tamsulosin HCl (Flomax) 0.4 mg PO DAILY [facility] Last Admin: 11/30/17 09:01 Dose: 0.4 mg Discontinued Medications Amlodipine Besylate (Norvasc) Confirm Administered Dose 5 mg .ROUTE .STK-MED ONE Stop: 11/29/17 20:42 Bisacodyl (Dulcolax) 10 mg RECTAL ONETIME ONE Stop: 11/29/17 11:50 Last Admin: 11/29/17 11:57 Dose: 10 mg Sodium Chloride (Normal Saline) 1,000 mls @ 100 mls/hr IV ASDIRECTED [facility] Ketorolac Tromethamine (Toradol) 15 mg IVPUSH ONETIME ONE Stop: 11/29/17 11:34 Last Admin: 11/29/17 11:44 Dose: 15 mg Levetiracetam (Keppra) Confirm Administered Dose 500 mg .ROUTE .STK-MED ONE Stop: 11/29/17 21:31 Lorazepam (Ativan) 1 mg IV NOW ONE Stop: 11/30/17 01:41 Lorazepam (Ativan) Confirm Administered Dose 2 mg .ROUTE .STK-MED ONE Stop: 11/30/17 01:45 Potassium Chloride (Klor-Con M20) 40 meq PO ONETIME ONE Stop: 11/29/17 17:01 Sodium Chloride (Saline Flush) 10 ml IV ONETIME ONE Stop: 11/29/17 18:01 Tamsulosin HCl (Flomax) 0.4 mg PO ONETIME ONE Stop: 11/29/17 13:55 Last Admin: 11/29/17 14:12 Dose: 0.4 mg - Exam Quality Assessment: No: Supplemental Oxygen General: Alert, Cooperative, No Acute Distress. No: Oriented Neck: Supple Lungs: Clear to Auscultation, Normal Respiratory Effort Cardiovascular: Regular Rate, Regular Rhythm GI/Abdominal Exam: Soft, Non-Tender, No Distention Back Exam: Vertebral Tenderness. No: Muscle Spasm Extremities: No Pedal Edema Skin: Warm, Dry Psy/Mental Status: Alert, Anxious (mild) - Problem List Review Problem List Initiated/Reviewed/Updated: Yes - My Orders Last 24 Hours: My Active Orders 11/29/17 16:15 Head wo Cont [CT] Routine Bisacodyl [Dulcolax] 10 mg RECTAL DAILY PRN Magnesium Hydroxide [Milk of Magnesia] 30 ml PO BID PRN 11/29/17 17:00 Aspirin [Halfprin] 81 mg PO DAILY Lisinopril [Prinivil] 40 mg PO DAILY Polyethylene Glycol 3350 [MiraLAX] 17 gm PO DAILY PRN Tamsulosin [Flomax] 0.4 mg PO DAILY amLODIPine [Norvasc] 5 mg PO DAILY 11/29/17 21:00 Acetaminophen [Tylenol Extra Strength] 1,000 mg PO TID Melatonin 9 mg PO BEDTIME Metoprolol Tartrate [Lopressor] 100 mg PO BID hydrALAZINE [Apresoline] 50 mg PO BID 11/30/17 10:52 Haloperidol [Haldol] 1 mg PO Q4H PRN Peripheral IV Discontinue [OM.PC] Routine 11/30/17 21:00 risperiDONE [RisperiDAL] 0.5 mg PO BEDTIME - Plan Plan:: ASSESSMENT AND PLAN - Acute lower back pain with subacute compression fractures - did not appear to be in significant discomfort this morning and was able to get up with one assist but does continue to require assistance. Some tenderness on examination and this is similar to yesterday. -Continue scheduled acetaminophen -Trial of lidocaine patch Visual hallucinations - etiology not entirely clear. Head CT was negative. May be part of the dementia process. No strong evidence for infection. -Trial of risperidone at bedtime -Melatonin at bedtime Alzheimer's disease with behavioral disturbance - patient has hallucinations and mild intermittent agitation. -Melatonin and risperidone as above -Haldol for breakthrough agitation Essential hypertension - blood pressure control has been much better after hospital admission. -Continue home medications Stage III chronic kidney disease - kidney function stable. Hypokalemia - improved with supplementation Maintenance issues - - DVT prophylaxis - mechanical - GI prophylaxis - PPI - Nutrition - regular Disposition - disposition unclear at this time. May need senior care placement but family having difficulty with the financial part of this. Probably not safe for discharge home even with home care. Dreek Monahan M.D.
[2017-11-30] MEDS: Potassium Chloride 20 MEQ Tab.ER PO ONE (11:57)
[2017-11-30] MEDS: Melatonin 3 MG Tab PO SCH ×2 (11:58→20:58)
[2017-11-30] MEDS: levETIRAcetam 250 MG Tab ONE (11:58)
[2017-11-30] MEDS: METOPROLOL TART 100MG (PTOM) PO SCH (21:00)
[2017-11-30] MEDS: LEVETIRACETAM 500 MG PO SCH (21:00)
[2017-11-30] MEDS: HYDRALAZINE 50 MG PO SCH (21:01)
[2017-11-30] MEDS: risperiDONE 0.5 MG Tab PO SCH (21:02)
[2017-12-01] MEDS: Acetaminophen 500 MG Tab PO SCH ×3 (10:00→20:57)
[2017-12-01] MEDS: LEVETIRACETAM 500 MG PO SCH ×2 (10:00→20:56)
[2017-12-01] MEDS: Tamsulosin 0.4 MG Cap.ER PO SCH (10:00)
[2017-12-01] MEDS: Aspirin 81 MG Tab.EC PO SCH (10:00)
[2017-12-01] MEDS: amLODIPine 5 MG Tab (PTOM) PO SCH (10:01)
[2017-12-01] MEDS: METOPROLOL TART 100MG (PTOM) PO SCH ×2 (10:01→20:56)
[2017-12-01] MEDS: Lidocaine 5% 700 MG Patch TOP SCH (10:01)
[2017-12-01] MEDS: HYDRALAZINE 50 MG PO SCH ×2 (10:01→20:56)
[2017-12-01] MEDS: LISINOPRIL 40MG (PTOM) PO SCH (10:01)
[2017-12-01] MEDS: Gabapentin 100 MG Cap PO SCH ×2 (12:44→20:53)
--- NOTE | 2017-12-01 14:00 | PCM.PN ---
- General Info Date of Service: 12/01/17 Functional Status: Reports: Pain Controlled, Tolerating Diet - Review of Systems General: Reports: Weakness Musculoskeletal: Reports: Back Pain Systems Review Comment:: No acute events overnight. He did have urine retention and required straight catheterization once. No significant issues with agitation. He is more alert and interactive today but still very confused. Does not appear to be hallucinating today. Requires assistance of 2 to get up and down from the chair or bed but is more stable when he is on his feet. Appears to grimace in pain while trying to stand up or sit down. Appears comfortable when sitting in a chair or lying in bed. Has not had any fevers. - Patient Data Vitals - Most Recent: Last Vital Signs Temp 35.3 C 12/01/17 11:27 Pulse 51 L 12/01/17 11:27 Resp 16 12/01/17 11:27 BP 145/55 H 12/01/17 11:27 Pulse Ox 95 12/01/17 11:27 Weight - Most Recent: 90.718 kg I&O - Last 24 Hours: Intake & Output 11/30/17 12/01/17 12/01/17 22:59 06:59 14:59 Intake Total 580 760 Output Total 750 250 Balance -170 510 Med Orders - Current: Current Medications Acetaminophen (Tylenol Extra Strength) 1,000 mg PO TID [facility] Last Admin: 12/01/17 10:00 Dose: 1,000 mg Amlodipine Besylate (Norvasc) 5 mg PO DAILY [facility] Last Admin: 12/01/17 10:01 Dose: 5 mg Aspirin (Halfprin) 81 mg PO DAILY [facility] Last Admin: 12/01/17 10:00 Dose: 81 mg Bisacodyl (Dulcolax) 10 mg RECTAL DAILY PRN PRN Reason: CONSTIPATION Gabapentin (Neurontin) 200 mg PO BID [facility] Last Admin: 12/01/17 12:44 Dose: 200 mg Haloperidol (Haldol) 1 mg PO Q4H PRN PRN Reason: Agitation Lidocaine (Lidoderm 5%) 700 mg TOP Q24H [facility] Last Admin: 12/01/17 10:01 Dose: 700 mg Magnesium Hydroxide (Milk Of Magnesia) 30 ml PO BID PRN PRN Reason: CONSTIPATION Melatonin (Melatonin) 9 mg PO BEDTIME [facility] Last Admin: 11/30/17 20:58 Dose: 9 mg Remove Lidocaine (Patch) 0 each TOP Q24H [facility] Metoprolol Tart (100mg (Ptom)) 0 each PO BID [facility] Last Admin: 12/01/17 10:01 Dose: 1 each Hydralazine 50mg ( (Ptom)) 0 each PO BID [facility] Last Admin: 12/01/17 10:01 Dose: 1 each Lisinopril 40mg ( (Ptom)) 0 each PO DAILY [facility] Last Admin: 12/01/17 10:01 Dose: 1 each Levetiracetam 500mg ((Ptom)) 0 each PO BID [facility] Last Admin: 12/01/17 10:00 Dose: 1 each Polyethylene Glycol (Miralax) 17 gm PO DAILY PRN PRN Reason: CONSTIPATION Risperidone (Risperidal) 0.5 mg PO BEDTIME [facility] Last Admin: 11/30/17 21:02 Dose: 0.5 mg Tamsulosin HCl (Flomax) 0.4 mg PO DAILY [facility] Last Admin: 12/01/17 10:00 Dose: 0.4 mg Discontinued Medications Amlodipine Besylate (Norvasc) 5 mg PO DAILY [facility] Last Admin: 11/30/17 09:03 Dose: 5 mg Amlodipine Besylate (Norvasc) Confirm Administered Dose 5 mg .ROUTE .STK-MED ONE Stop: 11/29/17 20:42 Last Admin: 11/30/17 11:57 Dose: Not Given Bisacodyl (Dulcolax) 10 mg RECTAL ONETIME ONE Stop: 11/29/17 11:50 Last Admin: 11/29/17 11:57 Dose: 10 mg Hydralazine HCl (Apresoline) 50 mg PO BID [facility] Last Admin: 11/30/17 09:01 Dose: 50 mg Sodium Chloride (Normal Saline) 1,000 mls @ 100 mls/hr IV ASDIRECTED [facility] Last Admin: 11/29/17 20:30 Dose: 100 mls/hr Ketorolac Tromethamine (Toradol) 15 mg IVPUSH ONETIME ONE Stop: 11/29/17 11:34 Last Admin: 11/29/17 11:44 Dose: 15 mg Levetiracetam (Keppra) 500 mg PO BID [facility] Last Admin: 11/30/17 09:02 Dose: 500 mg Levetiracetam (Keppra) Confirm Administered Dose 500 mg .ROUTE .STK-MED ONE Stop: 11/29/17 21:31 Last Admin: 11/29/17 21:30 Dose: 500 mg Lisinopril (Prinivil) 40 mg PO DAILY [facility] Last Admin: 11/30/17 09:02 Dose: 40 mg Lorazepam (Ativan) 1 mg IV NOW ONE Stop: 11/30/17 01:41 Last Admin: 11/30/17 01:50 Dose: 1 mg Lorazepam (Ativan) Confirm Administered Dose 2 mg .ROUTE .STK-MED ONE Stop: 11/30/17 01:45 Last Admin: 11/30/17 11:58 Dose: Not Given Metoprolol Tartrate (Lopressor) 100 mg PO BID [facility] Last Admin: 11/30/17 09:00 Dose: 100 mg Potassium Chloride (Klor-Con M20) 40 meq PO ONETIME ONE Stop: 11/29/17 17:01 Last Admin: 11/29/17 20:35 Dose: 40 meq Sodium Chloride (Saline Flush) 10 ml IV ONETIME ONE Stop: 11/29/17 18:01 Last Admin: 11/30/17 11:57 Dose: Not Given Tamsulosin HCl (Flomax) 0.4 mg PO ONETIME ONE Stop: 11/29/17 13:55 Last Admin: 11/29/17 14:12 Dose: 0.4 mg - Exam Quality Assessment: No: Supplemental Oxygen General: Alert, Cooperative, No Acute Distress. No: Oriented Neck: Supple Lungs: Clear to Auscultation, Normal Respiratory Effort Cardiovascular: Regular Rate, Regular Rhythm GI/Abdominal Exam: Soft, No Distention Back Exam: Vertebral Tenderness (Lower thoracic spine area). No: Muscle Spasm Extremities: Pedal Edema Psy/Mental Status: Alert, Normal Affect - Problem List Review Problem List Initiated/Reviewed/Updated: Yes - My Orders Last 24 Hours: My Active Orders 11/30/17 16:45 Insert Urinary Catheter [OM.PC] Q24H 11/30/17 21:00 Patient's Own Medication [Ptom] 0 each PO BID Patient's Own Medication [Ptom] 0 each PO BID risperiDONE [RisperiDAL] 0.5 mg PO BEDTIME 12/01/17 09:00 Patient's Own Medication [Ptom] 0 each PO DAILY amLODIPine [Norvasc] 5 mg PO DAILY 12/01/17 10:00 Lidocaine 5% [Lidoderm 5%] 700 mg TOP Q24H 12/01/17 11:30 Gabapentin [Neurontin] 200 mg PO BID 12/01/17 22:00 Non-Formulary Medication [NF Drug] 0 each TOP Q24H - Plan Plan:: ASSESSMENT AND PLAN - Acute lower back pain with mild subacute lower thoracic compression fractures - comfortable at rest but does have some pain with position changes. -Continue scheduled acetaminophen -Trial of lidocaine patch -Trial of low-dose gabapentin Visual hallucinations - etiology not entirely clear but seems better today after risperidone was initiated. -Trial of risperidone at bedtime -Melatonin at bedtime Alzheimer's disease with behavioral disturbance - patient's hallucinations and mild intermittent agitation seem better today. -Melatonin and risperidone as above -Haldol for breakthrough agitation Probable BPH - patient had some difficulty passing urine and did require straight catheterization once. He has been able to pass urine this morning. -Continue tamsulosin Essential hypertension - blood pressure control has been much better after hospital admission. -Continue home medications Stage III chronic kidney disease - kidney function stable. Hypokalemia - improved with supplementation Maintenance issues - - DVT prophylaxis - mechanical - GI prophylaxis - PPI - Nutrition - regular Disposition - disposition unclear at this time. May need longterm placement but family having difficulty with the financial part of this. Probably not safe for discharge home even with home care but has improved compared to yesterday. Derek Monahan M.D.
[2017-12-01] MEDS: Melatonin 3 MG Tab PO SCH (20:53)
[2017-12-01] MEDS: risperiDONE 0.5 MG Tab PO SCH (20:57)
--- NOTE | 2017-12-02 03:55 | PCM.SN ---
- Free Text/Narrative Note: Time: 22:43 call from [address] [place] [id number] O: bladder scan 599 A: urinary retention P: advise to straight cath, monitor for urinary retention continue present plan of care.
[2017-12-02] MEDS: LEVETIRACETAM 500 MG PO SCH ×2 (08:47→21:21)
[2017-12-02] MEDS: Gabapentin 100 MG Cap PO SCH ×2 (08:49→21:20)
[2017-12-02] MEDS: Acetaminophen 500 MG Tab PO SCH ×3 (08:50→21:23)
[2017-12-02] MEDS: Tamsulosin 0.4 MG Cap.ER PO SCH (08:50)
[2017-12-02] MEDS: Aspirin 81 MG Tab.EC PO SCH (08:50)
[2017-12-02] MEDS: METOPROLOL TART 100MG (PTOM) PO SCH ×2 (08:52→21:22)
[2017-12-02] MEDS: LISINOPRIL 40MG (PTOM) PO SCH (08:52)
[2017-12-02] MEDS: HYDRALAZINE 50 MG PO SCH ×2 (08:53→21:20)
[2017-12-02] MEDS: amLODIPine 5 MG Tab (PTOM) PO SCH (08:53)
[2017-12-02] MEDS: Lidocaine 5% 700 MG Patch TOP SCH (09:00)
--- NOTE | 2017-12-02 14:24 | PCM.PN ---
- General Info Date of Service: 12/02/17 Functional Status: Reports: Pain Controlled, Tolerating Diet - Review of Systems General: Reports: Weakness Musculoskeletal: Reports: Back Pain Systems Review Comment:: there were no acute events overnight. Patient does have intermittent difficulty with urinary retention and has required straight catheterization twice. He has been able to pass urine spontaneously as well. He has not had fevers. No obvious hallucinations. No behavior issues. He does report that his back is feeling a little better today. He continues to require the assist of 2 people to get up and down out of bed or back into bed. - Patient Data Vitals - Most Recent: Last Vital Signs Temp 35.4 C 12/02/17 11:03 Pulse 67 12/02/17 11:03 Resp 16 12/02/17 11:03 BP 108/46 L 12/02/17 11:03 Pulse Ox 93 L 12/02/17 11:03 Weight - Most Recent: 90.718 kg I&O - Last 24 Hours: Intake & Output 12/01/17 12/02/17 12/02/17 22:59 06:59 14:59 Intake Total 240 240 360 Output Total 1100 300 Balance -860 240 60 Med Orders - Current: Current Medications Acetaminophen (Tylenol Extra Strength) 1,000 mg PO TID [facility] Last Admin: 12/02/17 13:37 Dose: 1,000 mg Amlodipine Besylate (Norvasc) 5 mg PO DAILY [facility] Last Admin: 12/02/17 08:53 Dose: 5 mg Aspirin (Halfprin) 81 mg PO DAILY [facility] Last Admin: 12/02/17 08:50 Dose: 81 mg Bisacodyl (Dulcolax) 10 mg RECTAL DAILY PRN PRN Reason: CONSTIPATION Gabapentin (Neurontin) 200 mg PO BID [facility] Last Admin: 12/02/17 08:49 Dose: 200 mg Haloperidol (Haldol) 1 mg PO Q4H PRN PRN Reason: Agitation Lidocaine (Lidoderm 5%) 700 mg TOP Q24H [facility] Last Admin: 12/02/17 09:00 Dose: 700 mg Magnesium Hydroxide (Milk Of Magnesia) 30 ml PO BID PRN PRN Reason: CONSTIPATION Melatonin (Melatonin) 9 mg PO BEDTIME [facility] Last Admin: 12/01/17 20:53 Dose: 9 mg Remove Lidocaine (Patch) 0 each TOP Q24H [facility] Last Admin: 12/01/17 21:13 Dose: Not Given Metoprolol Tart (100mg (Ptom)) 0 each PO BID [facility] Last Admin: 12/02/17 08:52 Dose: 1 each Hydralazine 50mg ( (Ptom)) 0 each PO BID [facility] Last Admin: 12/02/17 08:53 Dose: 1 each Lisinopril 40mg ( (Ptom)) 0 each PO DAILY [facility] Last Admin: 12/02/17 08:52 Dose: 1 each Levetiracetam 500mg ((Ptom)) 0 each PO BID [facility] Last Admin: 12/02/17 08:47 Dose: 1 each Polyethylene Glycol (Miralax) 17 gm PO DAILY PRN PRN Reason: CONSTIPATION Risperidone (Risperidal) 0.5 mg PO BEDTIME [facility] Last Admin: 12/01/17 20:57 Dose: 0.5 mg Tamsulosin HCl (Flomax) 0.4 mg PO DAILY [facility] Last Admin: 12/02/17 08:50 Dose: 0.4 mg Discontinued Medications Amlodipine Besylate (Norvasc) 5 mg PO DAILY [facility] Last Admin: 11/30/17 09:03 Dose: 5 mg Amlodipine Besylate (Norvasc) Confirm Administered Dose 5 mg .ROUTE .STK-MED ONE Stop: 11/29/17 20:42 Last Admin: 11/30/17 11:57 Dose: Not Given Bisacodyl (Dulcolax) 10 mg RECTAL ONETIME ONE Stop: 11/29/17 11:50 Last Admin: 11/29/17 11:57 Dose: 10 mg Hydralazine HCl (Apresoline) 50 mg PO BID [facility] Last Admin: 11/30/17 09:01 Dose: 50 mg Sodium Chloride (Normal Saline) 1,000 mls @ 100 mls/hr IV ASDIRECTED [facility] Last Admin: 11/29/17 20:30 Dose: 100 mls/hr Ketorolac Tromethamine (Toradol) 15 mg IVPUSH ONETIME ONE Stop: 11/29/17 11:34 Last Admin: 11/29/17 11:44 Dose: 15 mg Levetiracetam (Keppra) 500 mg PO BID [facility] Last Admin: 11/30/17 09:02 Dose: 500 mg Levetiracetam (Keppra) Confirm Administered Dose 500 mg .ROUTE .STK-MED ONE Stop: 11/29/17 21:31 Last Admin: 11/29/17 21:30 Dose: 500 mg Lisinopril (Prinivil) 40 mg PO DAILY [facility] Last Admin: 11/30/17 09:02 Dose: 40 mg Lorazepam (Ativan) 1 mg IV NOW ONE Stop: 11/30/17 01:41 Last Admin: 11/30/17 01:50 Dose: 1 mg Lorazepam (Ativan) Confirm Administered Dose 2 mg .ROUTE .STK-MED ONE Stop: 11/30/17 01:45 Last Admin: 11/30/17 11:58 Dose: Not Given Metoprolol Tartrate (Lopressor) 100 mg PO BID [facility] Last Admin: 11/30/17 09:00 Dose: 100 mg Potassium Chloride (Klor-Con M20) 40 meq PO ONETIME ONE Stop: 11/29/17 17:01 Last Admin: 11/29/17 20:35 Dose: 40 meq Sodium Chloride (Saline Flush) 10 ml IV ONETIME ONE Stop: 11/29/17 18:01 Last Admin: 11/30/17 11:57 Dose: Not Given Tamsulosin HCl (Flomax) 0.4 mg PO ONETIME ONE Stop: 11/29/17 13:55 Last Admin: 11/29/17 14:12 Dose: 0.4 mg - Exam Quality Assessment: No: Supplemental Oxygen General: Alert, Cooperative, No Acute Distress. No: Oriented Neck: Supple Lungs: Normal Respiratory Effort GI/Abdominal Exam: Soft, No Distention Back Exam: Paraspinal Tenderness. No: Vertebral Tenderness Extremities: Pedal Edema Psy/Mental Status: Alert, Normal Affect - Problem List Review Problem List Initiated/Reviewed/Updated: Yes - My Orders Last 24 Hours: My Active Orders 12/01/17 22:00 Non-Formulary Medication [NF Drug] 0 each TOP Q24H - Plan Plan:: ASSESSMENT AND PLAN - Acute lower back pain with mild subacute lower thoracic compression fractures - pain steadily improving with current management. -Continue scheduled acetaminophen -Trial of lidocaine patch -Trial of low-dose gabapentin Visual hallucinations - seem to have resolved at this time. -Trial of risperidone at bedtime -Melatonin at bedtime Alzheimer's disease with behavioral disturbance - no hallucinations, agitation or behavior issues. -Melatonin and risperidone as above -Haldol for breakthrough agitation Probable BPH - patient had some difficulty passing urine and did require straight catheterization twice. He has been able to pass urine spontaneously on an intermittent basis. -Continue tamsulosin Essential hypertension - blood pressure control has been much better after hospital admission. -Continue home medications Stage III chronic kidney disease - kidney function stable. Hypokalemia - improved with supplementation Maintenance issues - - DVT prophylaxis - mechanical - GI prophylaxis - PPI - Nutrition - regular Disposition - disposition unclear at this time. May need shelter placement but family having difficulty with the financial part of this. Discharge planning team has offered information about [facility] as well as local assisted living facilities as well as assistance with shelter placement. Family not available today to discuss discharge. At this point the patient is safe for hospital discharge but we do not have a safe discharge plan. He would benefit from subacute rehabilitation. Derek Monahan M.D.
[2017-12-02] MEDS: Melatonin 3 MG Tab PO SCH (21:19)
[2017-12-02] MEDS: risperiDONE 0.5 MG Tab PO SCH (21:23)
[2017-12-03] MEDS: LEVETIRACETAM 500 MG PO SCH ×2 (09:34→20:44)
[2017-12-03] MEDS: Aspirin 81 MG Tab.EC PO SCH (09:34)
[2017-12-03] MEDS: METOPROLOL TART 100MG (PTOM) PO SCH ×2 (09:34→20:45)
[2017-12-03] MEDS: Gabapentin 100 MG Cap PO SCH ×2 (09:34→20:44)
[2017-12-03] MEDS: Tamsulosin 0.4 MG Cap.ER PO SCH (09:34)
[2017-12-03] MEDS: amLODIPine 5 MG Tab (PTOM) PO SCH (09:34)
[2017-12-03] MEDS: Acetaminophen 500 MG Tab PO SCH ×3 (09:34→20:47)
[2017-12-03] MEDS: HYDRALAZINE 50 MG PO SCH ×2 (09:35→20:43)
[2017-12-03] MEDS: LISINOPRIL 40MG (PTOM) PO SCH (09:35)
[2017-12-03] MEDS: Lidocaine 5% 700 MG Patch TOP SCH (09:35)
--- NOTE | 2017-12-03 12:06 | PCM.PN ---
- General Info Date of Service: 12/03/17 Functional Status: Reports: Pain Controlled, Tolerating Diet - Review of Systems Musculoskeletal: Reports: Back Pain Systems Review Comment:: No acute events overnight. Pain seems well controlled. He remains weak and requires the assist of 2 people. No obvious evidence for hallucinations. His and daughter were here today. They report they are unable to afford transfer to the custodial at this time. He is not safe for discharge home at this time given his assist requirement. assisted beds are available in [facility] but they declined transfer to these facilities because it would be a hardship to visit him. No custodial beds are available locally. - Patient Data Vitals - Most Recent: Last Vital Signs Temp 36.9 C 12/03/17 11:00 Pulse 84 12/03/17 11:00 Resp 18 12/03/17 11:00 BP 98/65 12/03/17 11:00 Pulse Ox 92 L 12/03/17 11:00 Weight - Most Recent: 90.718 kg I&O - Last 24 Hours: Intake & Output 12/02/17 12/03/17 12/03/17 22:59 06:59 14:59 Intake Total 960 240 Output Total 775 Balance 960 -535 Med Orders - Current: Current Medications Acetaminophen (Tylenol Extra Strength) 1,000 mg PO TID [facility] Last Admin: 12/03/17 09:34 Dose: 1,000 mg Amlodipine Besylate (Norvasc) 5 mg PO DAILY [facility] Last Admin: 12/03/17 09:34 Dose: 5 mg Aspirin (Halfprin) 81 mg PO DAILY [facility] Last Admin: 12/03/17 09:34 Dose: 81 mg Bisacodyl (Dulcolax) 10 mg RECTAL DAILY PRN PRN Reason: CONSTIPATION Gabapentin (Neurontin) 200 mg PO BID [facility] Last Admin: 12/03/17 09:34 Dose: 200 mg Haloperidol (Haldol) 1 mg PO Q4H PRN PRN Reason: Agitation Lidocaine (Lidoderm 5%) 700 mg TOP Q24H [facility] Last Admin: 12/03/17 09:35 Dose: 700 mg Magnesium Hydroxide (Milk Of Magnesia) 30 ml PO BID PRN PRN Reason: CONSTIPATION Melatonin (Melatonin) 9 mg PO BEDTIME [facility] Last Admin: 12/02/17 21:19 Dose: 9 mg Remove Lidocaine (Patch) 0 each TOP Q24H [facility] Last Admin: 12/02/17 23:21 Dose: Not Given Metoprolol Tart (100mg (Ptom)) 0 each PO BID [facility] Last Admin: 12/03/17 09:34 Dose: 1 each Hydralazine 50mg ( (Ptom)) 0 each PO BID [facility] Last Admin: 12/03/17 09:35 Dose: 1 each Lisinopril 40mg ( (Ptom)) 0 each PO DAILY [facility] Last Admin: 12/03/17 09:35 Dose: 1 each Levetiracetam 500mg ((Ptom)) 0 each PO BID [facility] Last Admin: 12/03/17 09:34 Dose: 1 each Polyethylene Glycol (Miralax) 17 gm PO DAILY PRN PRN Reason: CONSTIPATION Risperidone (Risperidal) 0.5 mg PO BEDTIME [facility] Last Admin: 12/02/17 21:23 Dose: 0.5 mg Tamsulosin HCl (Flomax) 0.4 mg PO DAILY [facility] Last Admin: 12/03/17 09:34 Dose: 0.4 mg Discontinued Medications Amlodipine Besylate (Norvasc) 5 mg PO DAILY [facility] Last Admin: 11/30/17 09:03 Dose: 5 mg Amlodipine Besylate (Norvasc) Confirm Administered Dose 5 mg .ROUTE .STK-MED ONE Stop: 11/29/17 20:42 Last Admin: 11/30/17 11:57 Dose: Not Given Bisacodyl (Dulcolax) 10 mg RECTAL ONETIME ONE Stop: 11/29/17 11:50 Last Admin: 11/29/17 11:57 Dose: 10 mg Hydralazine HCl (Apresoline) 50 mg PO BID [facility] Last Admin: 11/30/17 09:01 Dose: 50 mg Sodium Chloride (Normal Saline) 1,000 mls @ 100 mls/hr IV ASDIRECTED [facility] Last Admin: 11/29/17 20:30 Dose: 100 mls/hr Ketorolac Tromethamine (Toradol) 15 mg IVPUSH ONETIME ONE Stop: 11/29/17 11:34 Last Admin: 11/29/17 11:44 Dose: 15 mg Levetiracetam (Keppra) 500 mg PO BID [facility] Last Admin: 11/30/17 09:02 Dose: 500 mg Levetiracetam (Keppra) Confirm Administered Dose 500 mg .ROUTE .STK-MED ONE Stop: 11/29/17 21:31 Last Admin: 11/29/17 21:30 Dose: 500 mg Lisinopril (Prinivil) 40 mg PO DAILY [facility] Last Admin: 11/30/17 09:02 Dose: 40 mg Lorazepam (Ativan) 1 mg IV NOW ONE Stop: 11/30/17 01:41 Last Admin: 11/30/17 01:50 Dose: 1 mg Lorazepam (Ativan) Confirm Administered Dose 2 mg .ROUTE .STK-MED ONE Stop: 11/30/17 01:45 Last Admin: 11/30/17 11:58 Dose: Not Given Metoprolol Tartrate (Lopressor) 100 mg PO BID [facility] Last Admin: 11/30/17 09:00 Dose: 100 mg Potassium Chloride (Klor-Con M20) 40 meq PO ONETIME ONE Stop: 11/29/17 17:01 Last Admin: 11/29/17 20:35 Dose: 40 meq Sodium Chloride (Saline Flush) 10 ml IV ONETIME ONE Stop: 11/29/17 18:01 Last Admin: 11/30/17 11:57 Dose: Not Given Tamsulosin HCl (Flomax) 0.4 mg PO ONETIME ONE Stop: 11/29/17 13:55 Last Admin: 11/29/17 14:12 Dose: 0.4 mg - Exam Quality Assessment: No: Supplemental Oxygen General: Alert, Cooperative, No Acute Distress. No: Oriented Neck: Supple Lungs: Normal Respiratory Effort Cardiovascular: Regular Rate, Regular Rhythm GI/Abdominal Exam: No Distention Extremities: Pedal Edema (mild ) Psy/Mental Status: Alert - Problem List Review Problem List Initiated/Reviewed/Updated: Yes - Plan Plan:: ASSESSMENT AND PLAN - Acute lower back pain with mild subacute lower thoracic compression fractures - pain seems well controlled at this time. Patient remains weak and requires assist of 2 to get into and out of bed. -Continue scheduled acetaminophen -Trial of lidocaine patch -Trial of low-dose gabapentin Visual hallucinations - seem to have resolved at this time. -Trial of risperidone at bedtime -Melatonin at bedtime Alzheimer's disease with behavioral disturbance - no hallucinations, agitation or behavior issues. -Melatonin and risperidone as above -Haldol for breakthrough agitation Probable BPH - patient had some difficulty passing urine and did require straight catheterization occasionally but seems to be doing better passing urine over the past 24 hours. -Continue tamsulosin Essential hypertension - blood pressure control has been much better after hospital admission. -Continue home medications Stage III chronic kidney disease - kidney function stable. Hypokalemia - improved with supplementation Maintenance issues - - DVT prophylaxis - mechanical - GI prophylaxis - PPI - Nutrition - regular Disposition - disposition unclear at this time. Needs fpc facility and subacute rehabilitation. At this time no beds are available locally and the family does not believe they would be able to afford a custodial. Beds are available in 2 nearby towns but the family does not want him transferred there because traveling to see him would be a hardship. Other resources offered have included assisted living facilities as well as information about VA benefits and medical assistance. Derek Monahan M.D.
[2017-12-03] MEDS: Melatonin 3 MG Tab PO SCH (20:44)
[2017-12-03] MEDS: risperiDONE 0.5 MG Tab PO SCH (20:46)
[2017-12-04] MEDS: Aspirin 81 MG Tab.EC PO SCH (09:27)
[2017-12-04] MEDS: Acetaminophen 500 MG Tab PO SCH ×3 (09:27→20:44)
[2017-12-04] MEDS: Tamsulosin 0.4 MG Cap.ER PO SCH (09:27)
[2017-12-04] MEDS: Lidocaine 5% 700 MG Patch TOP SCH (09:28)
[2017-12-04] MEDS: Gabapentin 100 MG Cap PO SCH ×2 (09:28→20:39)
[2017-12-04] MEDS: LEVETIRACETAM 500 MG PO SCH ×2 (09:31→20:39)
--- NOTE | 2017-12-04 11:56 | PCM.PN ---
- General Info Date of Service: 12/04/17 - Review of Systems General: Denies: Fever Pulmonary: Reports: Cough Neurological: Reports: Confusion Systems Review Comment:: There were no acute events overnight. Patient was up and alert and interactive this morning initially. Later in the morning he developed a loose sounding cough with diffuse rhonchi. He did have a temperature elevation this morning. He had a shower this morning and is very tired the following this activity. He is not complaining of back pain today. He is requiring supplemental oxygen and this is a new thing that started overnight. - Patient Data Vitals - Most Recent: Last Vital Signs Temp 36.4 C 12/04/17 07:00 Pulse 59 L 12/04/17 07:00 Resp 18 12/04/17 07:00 BP 139/69 12/04/17 07:00 Pulse Ox 87 L 12/04/17 07:00 Weight - Most Recent: 90.718 kg I&O - Last 24 Hours: Intake & Output 12/03/17 12/04/17 12/04/17 22:59 06:59 14:59 Intake Total 200 600 Output Total 1000 Balance 200 -1000 600 Med Orders - Current: Current Medications Acetaminophen (Tylenol Extra Strength) 1,000 mg PO TID [facility] Last Admin: 12/04/17 09:27 Dose: 1,000 mg Amlodipine Besylate (Norvasc) 5 mg PO DAILY [facility] Last Admin: 12/03/17 09:34 Dose: 5 mg Aspirin (Halfprin) 81 mg PO DAILY [facility] Last Admin: 12/04/17 09:27 Dose: 81 mg Bisacodyl (Dulcolax) 10 mg RECTAL DAILY PRN PRN Reason: CONSTIPATION Gabapentin (Neurontin) 200 mg PO BID [facility] Last Admin: 12/04/17 09:28 Dose: 200 mg Haloperidol (Haldol) 1 mg PO Q4H PRN PRN Reason: Agitation Lidocaine (Lidoderm 5%) 700 mg TOP Q24H [facility] Last Admin: 12/04/17 09:28 Dose: 700 mg Magnesium Hydroxide (Milk Of Magnesia) 30 ml PO BID PRN PRN Reason: CONSTIPATION Melatonin (Melatonin) 9 mg PO BEDTIME [facility] Last Admin: 12/03/17 20:44 Dose: 9 mg Remove Lidocaine (Patch) 0 each TOP Q24H [facility] Last Admin: 12/03/17 23:55 Dose: Not Given Metoprolol Tart (100mg (Ptom)) 0 each PO BID [facility] Last Admin: 12/03/17 20:45 Dose: 1 each Hydralazine 50mg ( (Ptom)) 0 each PO BID [facility] Last Admin: 12/03/17 20:43 Dose: 1 each Lisinopril 40mg ( (Ptom)) 0 each PO DAILY [facility] Last Admin: 12/03/17 09:35 Dose: 1 each Levetiracetam 500mg ((Ptom)) 0 each PO BID [facility] Last Admin: 12/04/17 09:31 Dose: 1 each Polyethylene Glycol (Miralax) 17 gm PO DAILY PRN PRN Reason: CONSTIPATION Risperidone (Risperidal) 0.5 mg PO BEDTIME [facility] Last Admin: 12/03/17 20:46 Dose: 0.5 mg Tamsulosin HCl (Flomax) 0.4 mg PO DAILY [facility] Last Admin: 12/04/17 09:27 Dose: 0.4 mg Discontinued Medications Amlodipine Besylate (Norvasc) 5 mg PO DAILY [facility] Last Admin: 11/30/17 09:03 Dose: 5 mg Amlodipine Besylate (Norvasc) Confirm Administered Dose 5 mg .ROUTE .STK-MED ONE Stop: 11/29/17 20:42 Last Admin: 11/30/17 11:57 Dose: Not Given Bisacodyl (Dulcolax) 10 mg RECTAL ONETIME ONE Stop: 11/29/17 11:50 Last Admin: 11/29/17 11:57 Dose: 10 mg Hydralazine HCl (Apresoline) 50 mg PO BID [facility] Last Admin: 11/30/17 09:01 Dose: 50 mg Sodium Chloride (Normal Saline) 1,000 mls @ 100 mls/hr IV ASDIRECTED [facility] Last Admin: 11/29/17 20:30 Dose: 100 mls/hr Ketorolac Tromethamine (Toradol) 15 mg IVPUSH ONETIME ONE Stop: 11/29/17 11:34 Last Admin: 11/29/17 11:44 Dose: 15 mg Levetiracetam (Keppra) 500 mg PO BID [facility] Last Admin: 11/30/17 09:02 Dose: 500 mg Levetiracetam (Keppra) Confirm Administered Dose 500 mg .ROUTE .STK-MED ONE Stop: 11/29/17 21:31 Last Admin: 11/29/17 21:30 Dose: 500 mg Lisinopril (Prinivil) 40 mg PO DAILY [facility] Last Admin: 11/30/17 09:02 Dose: 40 mg Lorazepam (Ativan) 1 mg IV NOW ONE Stop: 11/30/17 01:41 Last Admin: 11/30/17 01:50 Dose: 1 mg Lorazepam (Ativan) Confirm Administered Dose 2 mg .ROUTE .STK-MED ONE Stop: 11/30/17 01:45 Last Admin: 11/30/17 11:58 Dose: Not Given Metoprolol Tartrate (Lopressor) 100 mg PO BID [facility] Last Admin: 11/30/17 09:00 Dose: 100 mg Potassium Chloride (Klor-Con M20) 40 meq PO ONETIME ONE Stop: 11/29/17 17:01 Last Admin: 11/29/17 20:35 Dose: 40 meq Sodium Chloride (Saline Flush) 10 ml IV ONETIME ONE Stop: 11/29/17 18:01 Last Admin: 11/30/17 11:57 Dose: Not Given Tamsulosin HCl (Flomax) 0.4 mg PO ONETIME ONE Stop: 11/29/17 13:55 Last Admin: 11/29/17 14:12 Dose: 0.4 mg - Exam Quality Assessment: Supplemental Oxygen General: Alert, Cooperative, No Acute Distress. No: Oriented Neck: Supple Lungs: Normal Respiratory Effort, Rhonchi (diffuse upper airway rhonchi) Cardiovascular: Regular Rate, Regular Rhythm GI/Abdominal Exam: Soft, No Distention Extremities: Pedal Edema Psy/Mental Status: Alert - Problem List Review Problem List Initiated/Reviewed/Updated: Yes - My Orders Last 24 Hours: My Active Orders 12/04/17 10:33 CXR [Chest 1V Frontal] [CR] Routine 12/04/17 Lunch Thickened Liquids [DIET] 12/05/17 05:00 BASIC METABOLIC PANEL,BMP [CHEM] Timed CBC W/O DIFF,HEMOGRAM [HEME] Timed (1) 12/06/17 07:00 Consult to Speech Language Pathology [QUALITY CHECKER Evaluation and Treatment] [CONS] Routine - Plan Plan:: ASSESSMENT AND PLAN - Acute respiratory failure with hypoxia - suspect aspiration pneumonitis with difficulty clearing upper respiratory secretions and new right lower lung abnormality on chest x-ray. He is requiring supplemental oxygen but is not febrile. -Amox/Clav for empiric antibiotic coverage -Scheduled and as needed nebulizers -Change diet to soft with nectar thick liquids -Consult speech pathology when available Acute lower back pain with mild subacute lower thoracic compression fractures - pain seems well controlled at this time. Patient remains very weak and requires significant assistance with activities. -Continue scheduled acetaminophen -Continue lidocaine and gabapentin Visual hallucinations - resolved. -Trial of risperidone at bedtime -Melatonin at bedtime Alzheimer's disease with behavioral disturbance - no hallucinations, agitation or behavior issues. -Melatonin and risperidone as above -Haldol for breakthrough agitation Probable BPH - patient had some difficulty passing urine and did require straight catheterization occasionally but seems to be doing better passing urine over the past 24 hours. -Continue tamsulosin -Straight catheter as needed Essential hypertension - blood pressure control has been much better after hospital admission. -Continue home medications Stage III chronic kidney disease - kidney function stable. Hypokalemia - improved with supplementation Maintenance issues - - DVT prophylaxis - mechanical - GI prophylaxis - PPI - Nutrition - regular Admission justification - patient has likely developed aspiration pneumonitis with acute hypoxic respiratory failure. Antibiotics will be initiated. He will be transitioned to inpatient status at this time. Treatment for the presumed aspiration will require a hospital stay that spans more than 2 midnights. Disposition - disposition unclear at this time. Needs custodial facility and subacute rehabilitation. At this time no beds are available locally and the family does not believe they would be able to afford a senior care. Beds are available in 2 nearby towns but the family does not want him transferred there because traveling to see him would be a hardship. Other resources offered have included assisted living facilities as well as information about VA benefits and medical assistance. Derek Monahan M.D.
[2017-12-04] MEDS ORDERED: Sodium Chloride 0.9% 10 ML Syringe FLUSH PRN (12:03)
[2017-12-04] MEDS ORDERED: Sodium Chloride 0.9% 1,000 ML IV SCH (12:15)
[2017-12-04] MEDS: Amoxicillin/Clavulanate K 875-125 MG Tab PO SCH ×2 (14:00→20:38)
[2017-12-04] MEDS: amLODIPine 5 MG Tab (PTOM) PO SCH (14:39)
[2017-12-04] MEDS: HYDRALAZINE 50 MG PO SCH ×2 (14:39→20:39)
[2017-12-04] MEDS: METOPROLOL TART 100MG (PTOM) PO SCH ×2 (14:39→20:40)
[2017-12-04] MEDS: LISINOPRIL 40MG (PTOM) PO SCH (14:39)
[2017-12-04] MEDS ORDERED: Albuterol 0.083% 2.5 MG/3 ML Neb Soln NEB PRN (16:21)
[2017-12-04] MEDS: Albuterol/Ipratropium 3.0-0.5 MG/3 ML Neb Soln NEB SCH ×2 (16:41→20:38)
[2017-12-04] MEDS: Melatonin 3 MG Tab PO SCH (20:38)
[2017-12-04] MEDS: risperiDONE 0.5 MG Tab PO SCH (20:40)
[2017-12-05] MEDS: Albuterol/Ipratropium 3.0-0.5 MG/3 ML Neb Soln NEB SCH ×4 (07:43→22:00)
[2017-12-05] MEDS: Tamsulosin 0.4 MG Cap.ER PO SCH (08:48)
[2017-12-05] MEDS: Aspirin 81 MG Tab.EC PO SCH (08:48)
[2017-12-05] MEDS: Metoprolol Tartrate 50 MG Tab PO SCH ×2 (08:48→20:31)
[2017-12-05] MEDS: Acetaminophen 500 MG Tab PO SCH ×3 (08:48→20:32)
[2017-12-05] MEDS: hydrALAZINE 25 MG Tab PO SCH ×2 (08:49→20:30)
[2017-12-05] MEDS: Lisinopril 20 MG Tab PO SCH (08:50)
[2017-12-05] MEDS: amLODIPine 5 MG Tab PO SCH (08:50)
[2017-12-05] MEDS: Amoxicillin/Clavulanate K 875-125 MG Tab PO SCH ×2 (08:51→20:30)
[2017-12-05] MEDS: Gabapentin 100 MG Cap PO SCH ×2 (08:51→20:32)
[2017-12-05] MEDS: levETIRAcetam 250 MG Tab PO SCH ×2 (08:51→20:32)
[2017-12-05] MEDS: Lidocaine 5% 700 MG Patch TOP SCH (09:01)
--- NOTE | 2017-12-05 13:06 | PCM.PN ---
- General Info Date of Service: 12/05/17 Functional Status: Reports: Pain Controlled, Tolerating Diet - Review of Systems General: Denies: Fever Pulmonary: Reports: Shortness of Breath Systems Review Comment:: no acute events overnight. He continues to require supplemental oxygen. More alert and interactive this morning but somnolent around lunchtime like he has been the last few days. Loose cough seems better today. Back pain seems to be well-controlled. - Patient Data Vitals - Most Recent: Last Vital Signs Temp 35.8 C 12/05/17 11:08 Pulse 58 L 12/05/17 11:08 Resp 18 12/05/17 11:08 BP 108/50 L 12/05/17 12:24 Pulse Ox 98 12/05/17 11:08 Weight - Most Recent: 90.718 kg I&O - Last 24 Hours: Intake & Output 12/04/17 12/05/17 12/05/17 22:59 06:59 14:59 Intake Total 200 360 Output Total 1200 1500 Balance -1000 -1140 Lab Results Last 24 Hours: Laboratory Results - last 24 hr 12/05/17 12/05/17 Range/Units 05:38 05:38 WBC 5.6 (4.5-11.0) K/uL RBC 3.20 L (4.30-5.90) M/uL Hgb 10.5 L D (12.0-15.0) g/dL Hct 31.7 L (40.0-54.0) % MCV 99 H (80-98) fL MCH 33 H (27-31) pg MCHC 33 (32-36) % Plt Count 136 L (150-400) K/uL Sodium 143 (140-148) mmol/L Potassium 4.0 (3.6-5.2) mmol/L Chloride 111 H (100-108) mmol/L Carbon Dioxide 22 (21-32) mmol/L Anion Gap 14.0 (5.0-14.0) mmol/L BUN 31 H (7-18) mg/dL Creatinine 1.2 (0.8-1.3) mg/dL Est Cr Clr Drug Dosing 43.70 mL/min Estimated GFR (MDRD) 58 L (>60) Glucose 105 (74-106) mg/dL Calcium 8.4 L (8.5-10.1) mg/dL Med Orders - Current: Current Medications Acetaminophen (Tylenol Extra Strength) 1,000 mg PO TID [facility] Last Admin: 12/05/17 08:48 Dose: 1,000 mg Albuterol (Proventil Neb Soln) 2.5 mg NEB Q4H PRN PRN Reason: shortness of breath/wheezing Albuterol/Ipratropium (Duoneb 3.0-0.5 Mg/3 Ml) 3 ml NEB QIDRT [facility] Last Admin: 12/05/17 10:53 Dose: 3 ml Amlodipine Besylate (Norvasc) 5 mg PO DAILY [facility] Last Admin: 12/05/17 08:50 Dose: 5 mg Amoxicillin/Clavulanate Potassium (Augmentin 875 Mg/125 Mg) 1 tab PO BID [facility] Last Admin: 12/05/17 08:51 Dose: 1 tab Aspirin (Halfprin) 81 mg PO DAILY [facility] Last Admin: 12/05/17 08:48 Dose: 81 mg Bisacodyl (Dulcolax) 10 mg RECTAL DAILY PRN PRN Reason: CONSTIPATION Gabapentin (Neurontin) 200 mg PO BID [facility] Last Admin: 12/05/17 08:51 Dose: 200 mg Haloperidol (Haldol) 1 mg PO Q4H PRN PRN Reason: Agitation Hydralazine HCl (Apresoline) 50 mg PO BID [facility] Last Admin: 12/05/17 08:49 Dose: 50 mg Levetiracetam (Keppra) 500 mg PO BID [facility] Last Admin: 12/05/17 08:51 Dose: 500 mg Lidocaine (Lidoderm 5%) 700 mg TOP Q24H [facility] Last Admin: 12/05/17 09:01 Dose: 700 mg Lisinopril (Prinivil) 40 mg PO DAILY [facility] Last Admin: 12/05/17 08:50 Dose: 40 mg Magnesium Hydroxide (Milk Of Magnesia) 30 ml PO BID PRN PRN Reason: CONSTIPATION Melatonin (Melatonin) 9 mg PO BEDTIME [facility] Last Admin: 12/04/17 20:38 Dose: 9 mg Metoprolol Tartrate (Lopressor) 100 mg PO BID [facility] Last Admin: 12/05/17 08:48 Dose: 100 mg Remove Lidocaine (Patch) 0 each TOP Q24H [facility] Last Admin: 12/04/17 21:00 Dose: Not Given Polyethylene Glycol (Miralax) 17 gm PO DAILY PRN PRN Reason: CONSTIPATION Risperidone (Risperidal) 0.5 mg PO BEDTIME [facility] Last Admin: 12/04/17 20:40 Dose: 0.5 mg Sodium Chloride (Saline Flush) 10 ml FLUSH ASDIRECTED PRN PRN Reason: Keep Vein Open Tamsulosin HCl (Flomax) 0.4 mg PO DAILY [facility] Last Admin: 12/05/17 08:48 Dose: 0.4 mg Discontinued Medications Amlodipine Besylate (Norvasc) 5 mg PO DAILY [facility] Last Admin: 11/30/17 09:03 Dose: 5 mg Amlodipine Besylate (Norvasc) Confirm Administered Dose 5 mg .ROUTE .STK-MED ONE Stop: 11/29/17 20:42 Last Admin: 11/30/17 11:57 Dose: Not Given Amlodipine Besylate (Norvasc) 5 mg PO DAILY [facility] Last Admin: 12/04/17 14:39 Dose: Not Given Bisacodyl (Dulcolax) 10 mg RECTAL ONETIME ONE Stop: 11/29/17 11:50 Last Admin: 11/29/17 11:57 Dose: 10 mg Hydralazine HCl (Apresoline) 50 mg PO BID [facility] Last Admin: 11/30/17 09:01 Dose: 50 mg Sodium Chloride (Normal Saline) 1,000 mls @ 100 mls/hr IV ASDIRECTED [facility] Last Admin: 11/29/17 20:30 Dose: 100 mls/hr Sodium Chloride (Normal Saline) 1,000 mls @ 500 mls/hr IV ASDIRECTED [facility] Stop: 12/04/17 14:16 Last Admin: 12/04/17 13:05 Dose: 500 mls/hr Ketorolac Tromethamine (Toradol) 15 mg IVPUSH ONETIME ONE Stop: 11/29/17 11:34 Last Admin: 11/29/17 11:44 Dose: 15 mg Levetiracetam (Keppra) 500 mg PO BID [facility] Last Admin: 11/30/17 09:02 Dose: 500 mg Levetiracetam (Keppra) Confirm Administered Dose 500 mg .ROUTE .STK-MED ONE Stop: 11/29/17 21:31 Last Admin: 11/29/17 21:30 Dose: 500 mg Lisinopril (Prinivil) 40 mg PO DAILY [facility] Last Admin: 11/30/17 09:02 Dose: 40 mg Lorazepam (Ativan) 1 mg IV NOW ONE Stop: 11/30/17 01:41 Last Admin: 11/30/17 01:50 Dose: 1 mg Lorazepam (Ativan) Confirm Administered Dose 2 mg .ROUTE .STK-MED ONE Stop: 11/30/17 01:45 Last Admin: 11/30/17 11:58 Dose: Not Given Metoprolol Tartrate (Lopressor) 100 mg PO BID [facility] Last Admin: 11/30/17 09:00 Dose: 100 mg Metoprolol Tart (100mg (Ptom)) 0 each PO BID [facility] Last Admin: 12/04/17 20:40 Dose: 1 each Hydralazine 50mg ( (Ptom)) 0 each PO BID [facility] Last Admin: 12/04/17 20:39 Dose: 1 each Lisinopril 40mg ( (Ptom)) 0 each PO DAILY [facility] Last Admin: 12/04/17 14:39 Dose: Not Given Levetiracetam 500mg ((Ptom)) 0 each PO BID [facility] Last Admin: 12/04/17 20:39 Dose: 1 each Potassium Chloride (Klor-Con M20) 40 meq PO ONETIME ONE Stop: 11/29/17 17:01 Last Admin: 11/29/17 20:35 Dose: 40 meq Sodium Chloride (Saline Flush) 10 ml IV ONETIME ONE Stop: 11/29/17 18:01 Last Admin: 11/30/17 11:57 Dose: Not Given Tamsulosin HCl (Flomax) 0.4 mg PO ONETIME ONE Stop: 11/29/17 13:55 Last Admin: 11/29/17 14:12 Dose: 0.4 mg - Exam Quality Assessment: Supplemental Oxygen General: Alert, No Acute Distress. No: Oriented Lungs: Normal Respiratory Effort, Crackles (right lower lung). No: Wheezing Cardiovascular: Regular Rate, Regular Rhythm GI/Abdominal Exam: Soft, No Distention Extremities: Pedal Edema Psy/Mental Status: Alert, Normal Affect - Problem List Review Problem List Initiated/Reviewed/Updated: Yes - My Orders Last 24 Hours: My Active Orders 12/04/17 13:00 Amoxicillin/Clavulanate K [Augmentin 875 MG/125 MG] 1 tab PO BID 12/04/17 16:21 Albuterol [Proventil Neb Soln] 2.5 mg NEB Q4H PRN 12/04/17 16:22 RT Aerosol Therapy [RC] ASDIRECTED 12/04/17 16:30 Albuterol/Ipratropium [DuoNeb 3.0-0.5 MG/3 ML] 3 ml NEB QIDRT 12/04/17 16:53 Patient Status [ADT] Routine 12/05/17 09:00 Lisinopril [Prinivil] 40 mg PO DAILY Metoprolol Tartrate [Lopressor] 100 mg PO BID amLODIPine [Norvasc] 5 mg PO DAILY hydrALAZINE [Apresoline] 50 mg PO BID 12/06/17 07:00 Consult to Speech Language Pathology [MAPPING SPECIALIST Evaluation and Treatment] [CONS] Routine - Plan Plan:: ASSESSMENT AND PLAN - Acute respiratory failure with hypoxia - suspect aspiration pneumonitis with difficulty clearing upper respiratory secretions and new right lower lung abnormality on chest x-ray. He is requiring supplemental oxygen but is not febrile. stable over the past 24 hours. -Amox/Clav for empiric antibiotic coverage -Scheduled and as needed nebulizers -Change diet to soft with nectar thick liquids -Consult speech pathology tomorrow Acute lower back pain with mild subacute lower thoracic compression fractures - pain seems well controlled at this time. Patient remains very weak and requires significant assistance with activities. -Continue scheduled acetaminophen -Continue lidocaine and gabapentin Visual hallucinations - resolved. -continue risperidone at bedtime -Melatonin at bedtime Alzheimer's disease with behavioral disturbance - no hallucinations, agitation or behavior issues. -Melatonin and risperidone as above -Haldol for breakthrough agitation Probable BPH - patient had some difficulty passing urine and did require straight catheterization occasionally but seems to be doing better passing urine over the past 24 hours. -Continue tamsulosin -Straight catheter as needed Essential hypertension - blood pressure control has been much better after hospital admission. -Continue home medications Stage III chronic kidney disease - kidney function stable. Hypokalemia - improved with supplementation Maintenance issues - - DVT prophylaxis - mechanical - GI prophylaxis - PPI - Nutrition - regular Admission justification - patient has likely developed aspiration pneumonitis with acute hypoxic respiratory failure. Antibiotics will be initiated. He will be transitioned to inpatient status at this time. Treatment for the presumed aspiration will require a hospital stay that spans more than 2 midnights. Disposition - disposition unclear at this time. Needs senior living facility and subacute rehabilitation. At this time no beds are available locally and the family does not believe they would be able to afford a usp. Beds are available in 2 nearby towns but the family does not want him transferred there because traveling to see him would be a hardship. Other resources offered have included assisted living facilities as well as information about VA benefits and medical assistance. Derek Monahan M.D.
[2017-12-05] MEDS: risperiDONE 0.5 MG Tab PO SCH (20:31)
[2017-12-05] MEDS: Melatonin 3 MG Tab PO SCH (20:32)
[2017-12-06] MEDS: Magnesium Hydroxide 400 MG/5 ML Susp 30 ML Cup PO PRN (02:28)
[2017-12-06] MEDS: Albuterol/Ipratropium 3.0-0.5 MG/3 ML Neb Soln NEB SCH ×4 (07:10→21:46)
[2017-12-06] MEDS: Tamsulosin 0.4 MG Cap.ER PO SCH (08:00)
[2017-12-06] MEDS: Aspirin 81 MG Tab.EC PO SCH (08:00)
[2017-12-06] MEDS: Gabapentin 100 MG Cap PO SCH ×2 (08:00→21:28)
[2017-12-06] MEDS: Lisinopril 20 MG Tab PO SCH (08:00)
[2017-12-06] MEDS: Amoxicillin/Clavulanate K 875-125 MG Tab PO SCH ×2 (08:00→21:28)
[2017-12-06] MEDS: hydrALAZINE 25 MG Tab PO SCH ×2 (08:00→21:29)
[2017-12-06] MEDS: Acetaminophen 500 MG Tab PO SCH ×3 (08:01→21:28)
[2017-12-06] MEDS: levETIRAcetam 250 MG Tab PO SCH ×2 (08:01→21:28)
--- NOTE | 2017-12-06 09:25 | CR ---
Portal chest Findings: There is focal infiltrate in the right mid to lower lung field. There is mild infiltrate in the left lung base as well. There are shallow lung volumes. There is cardiac enlargement with mild v ascular engorgement. Impression: 1. Bilateral lower lobe infiltrates. Recommend correlation for pneumonia. Follow-up recommended to co nfirm resolution. 2. Mild CHF.
--- NOTE | 2017-12-06 10:56 | PCM.PN ---
- General Info Date of Service: 12/06/17 Subjective Update: Mr. Lowery has remained fairly stable since yesterday, no significant temperature elevation and his oxygenation has been adequate. Continues to experience some difficulty with delirium, but has not been overly agitated. Because of confusion he is unable to provide significant information concerning recent symptoms or review of systems. - Patient Data Vitals - Most Recent: Last Vital Signs Temp 97.7 F 12/06/17 07:00 Pulse 64 12/06/17 07:17 Resp 20 12/06/17 07:00 BP 173/63 H 12/06/17 08:00 Pulse Ox 92 L 12/06/17 08:43 Weight - Most Recent: 200 lb I&O - Last 24 Hours: Intake & Output 12/05/17 12/06/17 12/06/17 22:59 06:59 14:59 Intake Total 440 300 Output Total 475 800 Balance -35 -500 Med Orders - Current: Current Medications Acetaminophen (Tylenol Extra Strength) 1,000 mg PO TID [facility] Last Admin: 12/06/17 08:01 Dose: 1,000 mg Albuterol (Proventil Neb Soln) 2.5 mg NEB Q4H PRN PRN Reason: shortness of breath/wheezing Albuterol/Ipratropium (Duoneb 3.0-0.5 Mg/3 Ml) 3 ml NEB QIDRT [facility] Last Admin: 12/06/17 07:10 Dose: 3 ml Amlodipine Besylate (Norvasc) 5 mg PO DAILY [facility] Last Admin: 12/05/17 08:50 Dose: 5 mg Amoxicillin/Clavulanate Potassium (Augmentin 875 Mg/125 Mg) 1 tab PO BID [facility] Last Admin: 12/06/17 08:00 Dose: 1 tab Aspirin (Halfprin) 81 mg PO DAILY [facility] Last Admin: 12/06/17 08:00 Dose: 81 mg Bisacodyl (Dulcolax) 10 mg RECTAL DAILY PRN PRN Reason: CONSTIPATION Gabapentin (Neurontin) 200 mg PO BID [facility] Last Admin: 12/06/17 08:00 Dose: 200 mg Haloperidol (Haldol) 1 mg PO Q4H PRN PRN Reason: Agitation Hydralazine HCl (Apresoline) 50 mg PO BID [facility] Last Admin: 12/06/17 08:00 Dose: 50 mg Levetiracetam (Keppra) 500 mg PO BID [facility] Last Admin: 12/06/17 08:01 Dose: 500 mg Lidocaine (Lidoderm 5%) 700 mg TOP Q24H [facility] Last Admin: 12/05/17 09:01 Dose: 700 mg Lisinopril (Prinivil) 40 mg PO DAILY [facility] Last Admin: 12/06/17 08:00 Dose: 40 mg Magnesium Hydroxide (Milk Of Magnesia) 30 ml PO BID PRN PRN Reason: CONSTIPATION Last Admin: 12/06/17 02:28 Dose: 30 ml Melatonin (Melatonin) 9 mg PO BEDTIME [facility] Last Admin: 12/05/17 20:32 Dose: 9 mg Metoprolol Tartrate (Lopressor) 100 mg PO BID [facility] Last Admin: 12/05/17 20:31 Dose: 100 mg Remove Lidocaine (Patch) 0 each TOP Q24H [facility] Last Admin: 12/05/17 23:52 Dose: Not Given Polyethylene Glycol (Miralax) 17 gm PO DAILY PRN PRN Reason: CONSTIPATION Risperidone (Risperidal) 0.5 mg PO BEDTIME [facility] Last Admin: 12/05/17 20:31 Dose: 0.5 mg Sodium Chloride (Saline Flush) 10 ml FLUSH ASDIRECTED PRN PRN Reason: Keep Vein Open Tamsulosin HCl (Flomax) 0.4 mg PO DAILY [facility] Last Admin: 12/06/17 08:00 Dose: 0.4 mg Discontinued Medications Amlodipine Besylate (Norvasc) 5 mg PO DAILY [facility] Last Admin: 11/30/17 09:03 Dose: 5 mg Amlodipine Besylate (Norvasc) Confirm Administered Dose 5 mg .ROUTE .STK-MED ONE Stop: 11/29/17 20:42 Last Admin: 11/30/17 11:57 Dose: Not Given Amlodipine Besylate (Norvasc) 5 mg PO DAILY [facility] Last Admin: 12/04/17 14:39 Dose: Not Given Bisacodyl (Dulcolax) 10 mg RECTAL ONETIME ONE Stop: 11/29/17 11:50 Last Admin: 11/29/17 11:57 Dose: 10 mg Hydralazine HCl (Apresoline) 50 mg PO BID [facility] Last Admin: 11/30/17 09:01 Dose: 50 mg Sodium Chloride (Normal Saline) 1,000 mls @ 100 mls/hr IV ASDIRECTED [facility] Last Admin: 11/29/17 20:30 Dose: 100 mls/hr Sodium Chloride (Normal Saline) 1,000 mls @ 500 mls/hr IV ASDIRECTED [facility] Stop: 12/04/17 14:16 Last Admin: 12/04/17 13:05 Dose: 500 mls/hr Ketorolac Tromethamine (Toradol) 15 mg IVPUSH ONETIME ONE Stop: 11/29/17 11:34 Last Admin: 11/29/17 11:44 Dose: 15 mg Levetiracetam (Keppra) 500 mg PO BID [facility] Last Admin: 11/30/17 09:02 Dose: 500 mg Levetiracetam (Keppra) Confirm Administered Dose 500 mg .ROUTE .STK-MED ONE Stop: 11/29/17 21:31 Last Admin: 11/29/17 21:30 Dose: 500 mg Lisinopril (Prinivil) 40 mg PO DAILY [facility] Last Admin: 11/30/17 09:02 Dose: 40 mg Lorazepam (Ativan) 1 mg IV NOW ONE Stop: 11/30/17 01:41 Last Admin: 11/30/17 01:50 Dose: 1 mg Lorazepam (Ativan) Confirm Administered Dose 2 mg .ROUTE .STK-MED ONE Stop: 11/30/17 01:45 Last Admin: 11/30/17 11:58 Dose: Not Given Metoprolol Tartrate (Lopressor) 100 mg PO BID [facility] Last Admin: 11/30/17 09:00 Dose: 100 mg Metoprolol Tart (100mg (Ptom)) 0 each PO BID [facility] Last Admin: 12/04/17 20:40 Dose: 1 each Hydralazine 50mg ( (Ptom)) 0 each PO BID [facility] Last Admin: 12/04/17 20:39 Dose: 1 each Lisinopril 40mg ( (Ptom)) 0 each PO DAILY [facility] Last Admin: 12/04/17 14:39 Dose: Not Given Levetiracetam 500mg ((Ptom)) 0 each PO BID [facility] Last Admin: 12/04/17 20:39 Dose: 1 each Potassium Chloride (Klor-Con M20) 40 meq PO ONETIME ONE Stop: 11/29/17 17:01 Last Admin: 11/29/17 20:35 Dose: 40 meq Sodium Chloride (Saline Flush) 10 ml IV ONETIME ONE Stop: 11/29/17 18:01 Last Admin: 11/30/17 11:57 Dose: Not Given Tamsulosin HCl (Flomax) 0.4 mg PO ONETIME ONE Stop: 11/29/17 13:55 Last Admin: 11/29/17 14:12 Dose: 0.4 mg - Exam Quality Assessment: DVT Prophylaxis General: Alert, Cooperative, No Acute Distress Lungs: Clear to Auscultation, Normal Respiratory Effort Cardiovascular: Regular Rate, Regular Rhythm, No Murmurs GI/Abdominal Exam: Soft, Non-Tender, No Organomegaly, No Distention Extremities: Non-Tender, No Pedal Edema Skin: Warm, Dry, Intact - Problem List Review Problem List Initiated/Reviewed/Updated: Yes - My Orders Last 24 Hours: My Active Orders 12/06/17 11:00 Lactobacillus Rhamnosus GG [Culturelle] 2 cap PO BID - Plan Plan:: ASSESSMENT AND PLAN - Acute respiratory failure with hypoxia - stable since yesterday, showing slow improvement. Speech pathology evaluation today shows no significant swallowing problems mom a recommended regular diet -Amox/Clav for empiric antibiotic coverage -Probiotic 2 tablets twice daily -Scheduled and as needed nebulizers -Regular diet Acute lower back pain with mild subacute lower thoracic compression fractures - pain seems well controlled at this time. Patient remains very weak and requires significant assistance with activities. -Continue scheduled acetaminophen -Continue lidocaine and gabapentin Delirium-continues to have some difficulty with confusion but no significant agitation -Risperdal at bedtime -Melatonin at bedtime Alzheimer's disease with behavioral disturbance -Melatonin and risperidone as above -Haldol for breakthrough agitation Bladder outlet obstruction-likely secondary to BPH, has had ongoing difficulty with urinary retention and requiring intermittent straight catheterization. -Continue Flomax -Straight catheter as needed Essential hypertension - blood pressure control has been much better after hospital admission. -Continue home medications Stage III chronic kidney disease - kidney function stable. Hypokalemia - improved with supplementation Maintenance issues - - DVT prophylaxis - mechanical - GI prophylaxis - PPI - Nutrition - regular Admission justification - patient has likely developed aspiration pneumonitis with acute hypoxic respiratory failure. Antibiotics will be initiated. He will be transitioned to inpatient status at this time. Treatment for the presumed aspiration will require a hospital stay that spans more than 2 midnights. Disposition - anticipate discharge to [facility]
[2017-12-06] MEDS: amLODIPine 5 MG Tab PO SCH (11:08)
[2017-12-06] MEDS: Metoprolol Tartrate 50 MG Tab PO SCH ×2 (11:08→21:28)
[2017-12-06] MEDS: Lidocaine 5% 700 MG Patch TOP SCH (11:09)
[2017-12-06] MEDS: Lactobacillus Rhamnosus GG (Probiotic) Cap PO SCH ×2 (13:25→21:28)
[2017-12-06] MEDS ORDERED: Sodium Phosphate,Monobasic/Sodium Phosphate,Dibasic Enema 133 ML Bottle RECTAL ONE (19:56)
[2017-12-06] MEDS: Melatonin 3 MG Tab PO SCH (21:28)
[2017-12-06] MEDS: risperiDONE 0.5 MG Tab PO SCH (21:28)
[2017-12-06] MEDS: Bisacodyl 10 MG Supp RECTAL PRN (21:29)
[2017-12-07] MEDS: Albuterol/Ipratropium 3.0-0.5 MG/3 ML Neb Soln NEB SCH ×4 (07:23→22:14)
[2017-12-07] MEDS: Acetaminophen 500 MG Tab PO SCH ×3 (08:42→22:15)
[2017-12-07] MEDS: Lisinopril 20 MG Tab PO SCH (08:42)
[2017-12-07] MEDS: Aspirin 81 MG Tab.EC PO SCH (08:42)
[2017-12-07] MEDS: Amoxicillin/Clavulanate K 875-125 MG Tab PO SCH ×2 (08:42→22:13)
[2017-12-07] MEDS: Metoprolol Tartrate 50 MG Tab PO SCH ×2 (08:42→22:18)
[2017-12-07] MEDS: hydrALAZINE 25 MG Tab PO SCH ×2 (08:43→22:16)
[2017-12-07] MEDS: Lactobacillus Rhamnosus GG (Probiotic) Cap PO SCH ×2 (08:43→22:16)
[2017-12-07] MEDS: Gabapentin 100 MG Cap PO SCH ×2 (08:43→22:19)
[2017-12-07] MEDS: amLODIPine 5 MG Tab PO SCH (08:43)
[2017-12-07] MEDS: Tamsulosin 0.4 MG Cap.ER PO SCH (08:43)
[2017-12-07] MEDS: levETIRAcetam 250 MG Tab PO SCH ×2 (08:43→22:17)
[2017-12-07] MEDS: Lidocaine 5% 700 MG Patch TOP SCH (09:25)
--- NOTE | 2017-12-07 14:36 | PCM.PN ---
- General Info Date of Service: 12/07/17 Subjective Update: Mr. Lowery has remained stable since yesterday, vital signs have been good and he is had no recurrent temperature elevation or significant respiratory compromise. He is unable to provide specific information concerning symptoms or review of systems because of his underlying dementia. - Patient Data Vitals - Most Recent: Last Vital Signs Temp 97 F 12/07/17 14:32 Pulse 63 12/07/17 14:32 Resp 18 12/07/17 14:32 BP 126/84 12/07/17 14:32 Pulse Ox 94 L 12/07/17 14:32 Weight - Most Recent: 200 lb I&O - Last 24 Hours: Intake & Output 12/06/17 12/07/17 12/07/17 22:59 06:59 14:59 Intake Total 480 360 250 Output Total 750 550 Balance -270 360 -300 Med Orders - Current: Current Medications Acetaminophen (Tylenol Extra Strength) 1,000 mg PO TID [facility] Last Admin: 12/07/17 08:42 Dose: 1,000 mg Albuterol (Proventil Neb Soln) 2.5 mg NEB Q4H PRN PRN Reason: shortness of breath/wheezing Albuterol/Ipratropium (Duoneb 3.0-0.5 Mg/3 Ml) 3 ml NEB QIDRT [facility] Last Admin: 12/07/17 10:48 Dose: 3 ml Amlodipine Besylate (Norvasc) 5 mg PO DAILY [facility] Last Admin: 12/07/17 08:43 Dose: 5 mg Amoxicillin/Clavulanate Potassium (Augmentin 875 Mg/125 Mg) 1 tab PO BID [facility] Last Admin: 12/07/17 08:42 Dose: 1 tab Aspirin (Halfprin) 81 mg PO DAILY [facility] Last Admin: 12/07/17 08:42 Dose: 81 mg Bisacodyl (Dulcolax) 10 mg RECTAL DAILY PRN PRN Reason: CONSTIPATION Last Admin: 12/06/17 21:29 Dose: 10 mg Gabapentin (Neurontin) 200 mg PO BID [facility] Last Admin: 12/07/17 08:43 Dose: 200 mg Haloperidol (Haldol) 1 mg PO Q4H PRN PRN Reason: Agitation Hydralazine HCl (Apresoline) 50 mg PO BID [facility] Last Admin: 12/07/17 08:43 Dose: 50 mg Lactobacillus Rhamnosus (Culturelle) 2 cap PO BID [facility] Last Admin: 12/07/17 08:43 Dose: 2 cap Levetiracetam (Keppra) 500 mg PO BID [facility] Last Admin: 12/07/17 08:43 Dose: 500 mg Lidocaine (Lidoderm 5%) 700 mg TOP Q24H [facility] Last Admin: 12/07/17 09:25 Dose: 700 mg Lisinopril (Prinivil) 40 mg PO DAILY [facility] Last Admin: 12/07/17 08:42 Dose: 40 mg Magnesium Hydroxide (Milk Of Magnesia) 30 ml PO BID PRN PRN Reason: CONSTIPATION Last Admin: 12/06/17 02:28 Dose: 30 ml Melatonin (Melatonin) 9 mg PO BEDTIME [facility] Last Admin: 12/06/17 21:28 Dose: 9 mg Metoprolol Tartrate (Lopressor) 100 mg PO BID [facility] Last Admin: 12/07/17 08:42 Dose: 100 mg Remove Lidocaine (Patch) 0 each TOP Q24H [facility] Last Admin: 12/06/17 21:29 Dose: Not Given Polyethylene Glycol (Miralax) 17 gm PO DAILY PRN PRN Reason: CONSTIPATION Last Admin: 12/06/17 16:06 Dose: 17 gm Risperidone (Risperidal) 0.5 mg PO BEDTIME [facility] Last Admin: 12/06/17 21:28 Dose: 0.5 mg Sodium Chloride (Saline Flush) 10 ml FLUSH ASDIRECTED PRN PRN Reason: Keep Vein Open Tamsulosin HCl (Flomax) 0.4 mg PO DAILY [facility] Last Admin: 12/07/17 08:43 Dose: 0.4 mg Discontinued Medications Amlodipine Besylate (Norvasc) 5 mg PO DAILY [facility] Last Admin: 11/30/17 09:03 Dose: 5 mg Amlodipine Besylate (Norvasc) Confirm Administered Dose 5 mg .ROUTE .STK-MED ONE Stop: 11/29/17 20:42 Last Admin: 11/30/17 11:57 Dose: Not Given Amlodipine Besylate (Norvasc) 5 mg PO DAILY [facility] Last Admin: 12/04/17 14:39 Dose: Not Given Bisacodyl (Dulcolax) 10 mg RECTAL ONETIME ONE Stop: 11/29/17 11:50 Last Admin: 11/29/17 11:57 Dose: 10 mg Hydralazine HCl (Apresoline) 50 mg PO BID [facility] Last Admin: 11/30/17 09:01 Dose: 50 mg Sodium Chloride (Normal Saline) 1,000 mls @ 100 mls/hr IV ASDIRECTED [facility] Last Admin: 11/29/17 20:30 Dose: 100 mls/hr Sodium Chloride (Normal Saline) 1,000 mls @ 500 mls/hr IV ASDIRECTED [facility] Stop: 12/04/17 14:16 Last Admin: 12/04/17 13:05 Dose: 500 mls/hr Ketorolac Tromethamine (Toradol) 15 mg IVPUSH ONETIME ONE Stop: 11/29/17 11:34 Last Admin: 11/29/17 11:44 Dose: 15 mg Levetiracetam (Keppra) 500 mg PO BID [facility] Last Admin: 11/30/17 09:02 Dose: 500 mg Levetiracetam (Keppra) Confirm Administered Dose 500 mg .ROUTE .STK-MED ONE Stop: 11/29/17 21:31 Last Admin: 11/29/17 21:30 Dose: 500 mg Lisinopril (Prinivil) 40 mg PO DAILY [facility] Last Admin: 11/30/17 09:02 Dose: 40 mg Lorazepam (Ativan) 1 mg IV NOW ONE Stop: 11/30/17 01:41 Last Admin: 11/30/17 01:50 Dose: 1 mg Lorazepam (Ativan) Confirm Administered Dose 2 mg .ROUTE .STK-MED ONE Stop: 11/30/17 01:45 Last Admin: 11/30/17 11:58 Dose: Not Given Metoprolol Tartrate (Lopressor) 100 mg PO BID [facility] Last Admin: 11/30/17 09:00 Dose: 100 mg Metoprolol Tart (100mg (Ptom)) 0 each PO BID [facility] Last Admin: 12/04/17 20:40 Dose: 1 each Hydralazine 50mg ( (Ptom)) 0 each PO BID [facility] Last Admin: 12/04/17 20:39 Dose: 1 each Lisinopril 40mg ( (Ptom)) 0 each PO DAILY [facility] Last Admin: 12/04/17 14:39 Dose: Not Given Levetiracetam 500mg ((Ptom)) 0 each PO BID [facility] Last Admin: 12/04/17 20:39 Dose: 1 each Potassium Chloride (Klor-Con M20) 40 meq PO ONETIME ONE Stop: 11/29/17 17:01 Last Admin: 11/29/17 20:35 Dose: 40 meq Sodium Biphosphate/Sodium Phosphate (Fleet Enema) 133 ml RECTAL ONETIME ONE Stop: 12/06/17 19:57 Last Admin: 12/07/17 00:56 Dose: 1 bottle Sodium Chloride (Saline Flush) 10 ml IV ONETIME ONE Stop: 11/29/17 18:01 Last Admin: 11/30/17 11:57 Dose: Not Given Tamsulosin HCl (Flomax) 0.4 mg PO ONETIME ONE Stop: 11/29/17 13:55 Last Admin: 11/29/17 14:12 Dose: 0.4 mg - Exam Quality Assessment: DVT Prophylaxis General: Alert, Cooperative, No Acute Distress Lungs: Clear to Auscultation, Normal Respiratory Effort Cardiovascular: Regular Rate, Regular Rhythm, No Murmurs GI/Abdominal Exam: Soft, Non-Tender, No Organomegaly, No Distention Extremities: Non-Tender, No Pedal Edema Skin: Warm, Dry, Intact - Problem List Review Problem List Initiated/Reviewed/Updated: Yes - Plan Plan:: ASSESSMENT AND PLAN - Acute respiratory failure with hypoxia - stable over the past 24 hours, no ongoing respiratory compromise or fever -Amox/Clav for empiric antibiotic coverage -Probiotic 2 tablets twice daily -Scheduled and as needed nebulizers -Regular diet Acute lower back pain with mild subacute lower thoracic compression fractures - pain seems well controlled at this time. Patient remains very weak and requires significant assistance with activities. -Continue scheduled acetaminophen -Continue lidocaine and gabapentin Delirium-continues to have some difficulty with confusion but no significant agitation -Risperdal at bedtime -Melatonin at bedtime Alzheimer's disease with behavioral disturbance -Melatonin and risperidone as above -Haldol for breakthrough agitation Bladder outlet obstruction-likely secondary to BPH, has had ongoing difficulty with urinary retention and requiring intermittent straight catheterization. -Continue Flomax -Straight catheter as needed Essential hypertension - blood pressure control has been much better after hospital admission. -Continue home medications Stage III chronic kidney disease - kidney function stable. Hypokalemia - resolved Admission justification - patient has likely developed aspiration pneumonitis with acute hypoxic respiratory failure. Antibiotics will be initiated. He will be transitioned to inpatient status at this time. Treatment for the presumed aspiration will require a hospital stay that spans more than 2 midnights. Disposition - anticipate discharge to half-way tomorrow
[2017-12-07] MEDS: Melatonin 3 MG Tab PO SCH (22:13)
[2017-12-07] MEDS: risperiDONE 0.5 MG Tab PO SCH (22:18)
[2017-12-08] MEDS: Albuterol/Ipratropium 3.0-0.5 MG/3 ML Neb Soln NEB SCH ×4 (07:13→20:49)
[2017-12-08] MEDS: Aspirin 81 MG Tab.EC PO SCH (08:19)
[2017-12-08] MEDS: Gabapentin 100 MG Cap PO SCH ×2 (08:19→20:42)
[2017-12-08] MEDS: hydrALAZINE 25 MG Tab PO SCH ×2 (08:19→20:43)
[2017-12-08] MEDS: Lactobacillus Rhamnosus GG (Probiotic) Cap PO SCH ×2 (08:19→20:42)
[2017-12-08] MEDS: Amoxicillin/Clavulanate K 875-125 MG Tab PO SCH ×2 (08:19→20:41)
[2017-12-08] MEDS: Tamsulosin 0.4 MG Cap.ER PO SCH (08:19)
[2017-12-08] MEDS: Metoprolol Tartrate 50 MG Tab PO SCH ×2 (08:20→20:46)
[2017-12-08] MEDS: Acetaminophen 500 MG Tab PO SCH ×3 (08:20→20:44)
[2017-12-08] MEDS: levETIRAcetam 250 MG Tab PO SCH ×2 (08:20→20:45)
[2017-12-08] MEDS: amLODIPine 5 MG Tab PO SCH (08:20)
[2017-12-08] MEDS: Lisinopril 20 MG Tab PO SCH (08:21)
[2017-12-08] MEDS: Lidocaine 5% 700 MG Patch TOP SCH (10:02)
--- NOTE | 2017-12-08 12:02 | PCM.PN ---
- General Info Date of Service: 12/08/17 Subjective Update: Mr. Lowery is remained stable since yesterday with no evidence of ongoing infection. Unable to provide significant information concerning symptoms or review of systems because of significant dementia - Patient Data Vitals - Most Recent: Last Vital Signs Temp 97.5 F 12/08/17 11:33 Pulse 57 L 12/08/17 11:33 Resp 16 12/08/17 11:33 BP 111/49 L 12/08/17 11:33 Pulse Ox 91 L 12/08/17 11:33 Weight - Most Recent: 200 lb I&O - Last 24 Hours: Intake & Output 12/07/17 12/08/17 12/08/17 22:59 06:59 14:59 Intake Total 120 400 Output Total 450 Balance -330 400 Med Orders - Current: Current Medications Acetaminophen (Tylenol Extra Strength) 1,000 mg PO TID [facility] Last Admin: 12/08/17 08:20 Dose: 1,000 mg Albuterol (Proventil Neb Soln) 2.5 mg NEB Q4H PRN PRN Reason: shortness of breath/wheezing Albuterol/Ipratropium (Duoneb 3.0-0.5 Mg/3 Ml) 3 ml NEB QIDRT [facility] Last Admin: 12/08/17 10:44 Dose: 3 ml Amlodipine Besylate (Norvasc) 5 mg PO DAILY [facility] Last Admin: 12/08/17 08:20 Dose: 5 mg Amoxicillin/Clavulanate Potassium (Augmentin 875 Mg/125 Mg) 1 tab PO BID [facility] Last Admin: 12/08/17 08:19 Dose: 1 tab Aspirin (Halfprin) 81 mg PO DAILY [facility] Last Admin: 12/08/17 08:19 Dose: 81 mg Bisacodyl (Dulcolax) 10 mg RECTAL DAILY PRN PRN Reason: CONSTIPATION Last Admin: 12/06/17 21:29 Dose: 10 mg Gabapentin (Neurontin) 200 mg PO BID [facility] Last Admin: 12/08/17 08:19 Dose: 200 mg Haloperidol (Haldol) 1 mg PO Q4H PRN PRN Reason: Agitation Hydralazine HCl (Apresoline) 50 mg PO BID [facility] Last Admin: 12/08/17 08:19 Dose: 50 mg Lactobacillus Rhamnosus (Culturelle) 2 cap PO BID [facility] Last Admin: 12/08/17 08:19 Dose: 2 cap Levetiracetam (Keppra) 500 mg PO BID [facility] Last Admin: 12/08/17 08:20 Dose: 500 mg Lidocaine (Lidoderm 5%) 700 mg TOP Q24H [facility] Last Admin: 12/08/17 10:02 Dose: 700 mg Lisinopril (Prinivil) 40 mg PO DAILY [facility] Last Admin: 12/08/17 08:21 Dose: 40 mg Magnesium Hydroxide (Milk Of Magnesia) 30 ml PO BID PRN PRN Reason: CONSTIPATION Last Admin: 12/06/17 02:28 Dose: 30 ml Melatonin (Melatonin) 9 mg PO BEDTIME [facility] Last Admin: 12/07/17 22:13 Dose: 9 mg Metoprolol Tartrate (Lopressor) 100 mg PO BID [facility] Last Admin: 12/08/17 08:20 Dose: 100 mg Remove Lidocaine (Patch) 0 each TOP Q24H [facility] Last Admin: 12/07/17 22:19 Dose: Not Given Polyethylene Glycol (Miralax) 17 gm PO DAILY PRN PRN Reason: CONSTIPATION Last Admin: 12/06/17 16:06 Dose: 17 gm Risperidone (Risperidal) 0.5 mg PO BEDTIME [facility] Last Admin: 12/07/17 22:18 Dose: 0.5 mg Sodium Chloride (Saline Flush) 10 ml FLUSH ASDIRECTED PRN PRN Reason: Keep Vein Open Tamsulosin HCl (Flomax) 0.4 mg PO DAILY [facility] Last Admin: 12/08/17 08:19 Dose: 0.4 mg Discontinued Medications Amlodipine Besylate (Norvasc) 5 mg PO DAILY [facility] Last Admin: 11/30/17 09:03 Dose: 5 mg Amlodipine Besylate (Norvasc) Confirm Administered Dose 5 mg .ROUTE .STK-MED ONE Stop: 11/29/17 20:42 Last Admin: 11/30/17 11:57 Dose: Not Given Amlodipine Besylate (Norvasc) 5 mg PO DAILY [facility] Last Admin: 12/04/17 14:39 Dose: Not Given Bisacodyl (Dulcolax) 10 mg RECTAL ONETIME ONE Stop: 11/29/17 11:50 Last Admin: 11/29/17 11:57 Dose: 10 mg Hydralazine HCl (Apresoline) 50 mg PO BID [facility] Last Admin: 11/30/17 09:01 Dose: 50 mg Sodium Chloride (Normal Saline) 1,000 mls @ 100 mls/hr IV ASDIRECTED [facility] Last Admin: 11/29/17 20:30 Dose: 100 mls/hr Sodium Chloride (Normal Saline) 1,000 mls @ 500 mls/hr IV ASDIRECTED [facility] Stop: 12/04/17 14:16 Last Admin: 12/04/17 13:05 Dose: 500 mls/hr Ketorolac Tromethamine (Toradol) 15 mg IVPUSH ONETIME ONE Stop: 11/29/17 11:34 Last Admin: 11/29/17 11:44 Dose: 15 mg Levetiracetam (Keppra) 500 mg PO BID [facility] Last Admin: 11/30/17 09:02 Dose: 500 mg Levetiracetam (Keppra) Confirm Administered Dose 500 mg .ROUTE .STK-MED ONE Stop: 11/29/17 21:31 Last Admin: 11/29/17 21:30 Dose: 500 mg Lisinopril (Prinivil) 40 mg PO DAILY [facility] Last Admin: 11/30/17 09:02 Dose: 40 mg Lorazepam (Ativan) 1 mg IV NOW ONE Stop: 11/30/17 01:41 Last Admin: 11/30/17 01:50 Dose: 1 mg Lorazepam (Ativan) Confirm Administered Dose 2 mg .ROUTE .STK-MED ONE Stop: 11/30/17 01:45 Last Admin: 11/30/17 11:58 Dose: Not Given Metoprolol Tartrate (Lopressor) 100 mg PO BID [facility] Last Admin: 11/30/17 09:00 Dose: 100 mg Metoprolol Tart (100mg (Ptom)) 0 each PO BID [facility] Last Admin: 12/04/17 20:40 Dose: 1 each Hydralazine 50mg ( (Ptom)) 0 each PO BID [facility] Last Admin: 12/04/17 20:39 Dose: 1 each Lisinopril 40mg ( (Ptom)) 0 each PO DAILY [facility] Last Admin: 12/04/17 14:39 Dose: Not Given Levetiracetam 500mg ((Ptom)) 0 each PO BID [facility] Last Admin: 12/04/17 20:39 Dose: 1 each Potassium Chloride (Klor-Con M20) 40 meq PO ONETIME ONE Stop: 11/29/17 17:01 Last Admin: 11/29/17 20:35 Dose: 40 meq Sodium Biphosphate/Sodium Phosphate (Fleet Enema) 133 ml RECTAL ONETIME ONE Stop: 12/06/17 19:57 Last Admin: 12/07/17 00:56 Dose: 1 bottle Sodium Chloride (Saline Flush) 10 ml IV ONETIME ONE Stop: 11/29/17 18:01 Last Admin: 11/30/17 11:57 Dose: Not Given Tamsulosin HCl (Flomax) 0.4 mg PO ONETIME ONE Stop: 11/29/17 13:55 Last Admin: 11/29/17 14:12 Dose: 0.4 mg - Exam General: Alert, Cooperative, No Acute Distress Lungs: Clear to Auscultation, Normal Respiratory Effort Cardiovascular: Regular Rate, Regular Rhythm, No Murmurs GI/Abdominal Exam: Soft, Non-Tender, No Organomegaly, No Distention Extremities: Non-Tender, No Pedal Edema Skin: Warm, Dry, Intact - Problem List Review Problem List Initiated/Reviewed/Updated: Yes - Plan Plan:: ASSESSMENT AND PLAN - Acute respiratory failure with hypoxia - resolved -Amox/Clav for empiric antibiotic coverage -Probiotic 2 tablets twice daily -Scheduled and as needed nebulizers -Regular diet Acute lower back pain with mild subacute lower thoracic compression fractures - pain seems well controlled at this time. Patient remains very weak and requires significant assistance with activities. -Continue scheduled acetaminophen -Continue lidocaine and gabapentin Delirium-continues to have difficulty with confusion but no significant agitation -Risperdal at bedtime -Melatonin at bedtime Alzheimer's disease with behavioral disturbance -Melatonin and risperidone as above -Haldol for breakthrough agitation Bladder outlet obstruction-likely secondary to BPH, has had ongoing difficulty with urinary retention and requiring intermittent straight catheterization. -Continue Flomax -Straight catheter as needed Essential hypertension - blood pressure control has been much better after hospital admission. -Continue home medications Stage III chronic kidney disease - kidney function stable. Hypokalemia - resolved Admission justification - patient has likely developed aspiration pneumonitis with acute hypoxic respiratory failure. Antibiotics will be initiated. He will be transitioned to inpatient status at this time. Treatment for the presumed aspiration will require a hospital stay that spans more than 2 midnights. Disposition - anticipate discharge to half-way tomorrow
[2017-12-08] MEDS: risperiDONE 0.5 MG Tab PO SCH (20:45)
[2017-12-08] MEDS: Melatonin 3 MG Tab PO SCH (20:47)
[2017-12-09] MEDS: Albuterol/Ipratropium 3.0-0.5 MG/3 ML Neb Soln NEB SCH ×2 (07:28→11:15)
[2017-12-09] MEDS: Magnesium Hydroxide 400 MG/5 ML Susp 30 ML Cup PO PRN (08:15)
[2017-12-09] MEDS: Bisacodyl 10 MG Supp RECTAL PRN (08:15)
[2017-12-09] MEDS: Acetaminophen 500 MG Tab PO SCH (08:20)
[2017-12-09] MEDS: Lactobacillus Rhamnosus GG (Probiotic) Cap PO SCH (08:20)
[2017-12-09] MEDS: hydrALAZINE 25 MG Tab PO SCH (08:20)
[2017-12-09] MEDS: Metoprolol Tartrate 50 MG Tab PO SCH (08:21)
[2017-12-09] MEDS: Aspirin 81 MG Tab.EC PO SCH (08:21)
[2017-12-09] MEDS: Gabapentin 100 MG Cap PO SCH (08:21)
[2017-12-09] MEDS: amLODIPine 5 MG Tab PO SCH (08:21)
[2017-12-09] MEDS: Tamsulosin 0.4 MG Cap.ER PO SCH (08:21)
[2017-12-09] MEDS: Amoxicillin/Clavulanate K 875-125 MG Tab PO SCH (08:21)
[2017-12-09] MEDS: levETIRAcetam 250 MG Tab PO SCH (08:21)
[2017-12-09] MEDS: Lisinopril 20 MG Tab PO SCH (08:22)
[2017-12-09] MEDS: Lidocaine 5% 700 MG Patch TOP SCH (09:41)
--- NOTE | 2017-12-09 10:53 | PCM.DCSUM1 ---
Discharge Summary - Hospital Course Brief History: Mr. Lowery is an 87-year-old gentleman who is admitted to observation status for further management of back pain related to compression fractures as well as increased agitation secondary to underlying dementia. - Discharge Data Discharge Date: 12/09/17 Discharge Disposition: DC/Tfer to SNF 03 Condition: Fair - Discharge Diagnosis/Problem(s) (1) Pneumonia SNOMED Code(s): 681920565 ICD Code: J18.9 - PNEUMONIA, UNSPECIFIED ORGANISM Status: Acute Current Visit: Yes Qualifiers: Pneumonia type: aspiration pneumonia (2) BPH (benign prostatic hyperplasia) SNOMED Code(s): 097637471 ICD Code: N40.0 - BENIGN PROSTATIC HYPERPLASIA WITHOUT LOWER URINRY TRACT SYMP Status: Acute Current Visit: Yes Qualifiers: Lower urinary tract symptom presence: symptoms present Lower urinary tract symptom detail: incomplete bladder emptying Qualified Code(s): N40.1 - Benign prostatic hyperplasia with lower urinary tract symptoms; R39.14 - Feeling of incomplete bladder emptying (3) Dementia SNOMED Code(s): 89177740 ICD Code: F03.90 - UNSPECIFIED DEMENTIA WITHOUT BEHAVIORAL DISTURBANCE Status: Acute Current Visit: Yes Qualifiers: Dementia type: unspecified type Dementia behavioral disturbance: without behavioral disturbance Qualified Code(s): F03.90 - Unspecified dementia without behavioral disturbance (4) Chronic ischemic heart disease SNOMED Code(s): 301205750 ICD Code: I25.9 - CHRONIC ISCHEMIC HEART DISEASE, UNSPECIFIED Status: Chronic Current Visit: No (5) Herpes zoster SNOMED Code(s): 9720440 ICD Code: B02.9 - ZOSTER WITHOUT COMPLICATIONS Status: Acute Current Visit: Yes - Patient Summary/Data Consults: Consultations 11/30/17 03:55 PT Evaluation and Treatment [CONS] Routine Please Evaluate and Treat. PT Reason for Consult: Strengthening Special Instructions: dx; weakness, recent head trauma This query below is only for informational purposes and is not editable. 12/06/17 07:00 Consult to Speech Language Pathology [DIRECTOR OF RETENTION Evaluation and Treatment] [CONS] Routine Please Evaluate and Treat DIRECTOR OF RETENTION Reason for Consult: Dysphagia This query below is only for informational purposes and is not editable. Admission Diagnosis/Problem: Pain Hospital Course: Mr. Lowery is an 87-year-old gentleman who had fallen the week prior to admission and had documented small compression fractures at T11 and T12. Prior to admission developed increased pain as well as agitation felt secondary to underlying dementia. He was admitted to the hospital for pain control and management of agitation, to facilitate long term placement. He initially did well and plan was for discharge to long term but then developed respiratory compromise with fever. Chest x-ray did show evidence of an infiltrate consistent with pneumonia, there was concern for possible aspiration. He was given IV fluids for hydration and started on IV antibiotic therapy appropriate for possible aspiration. Cultures were obtained and remained negative throughout the hospital stay. Improved with IV antibiotics and fluids, there was no evidence of sepsis. He did have some ongoing difficulty with urinary retention requiring Saha catheter placement but this had improved by the time of discharge she was able to urinate without significant difficulty. He will be discharged to the long term on an additional 2 days of oral antibiotic therapy with Augmentin. Activity will be as tolerated and he will resume his usual diet. Follow-up with primary care will be at the long term as needed. - Patient Instructions Diet: Usual Diet as Tolerated Activity: As Tolerated - Discharge Plan Prescriptions/Med Rec: Amoxicillin/Clavulanate K [Augmentin 875-125 MG] 1 tab PO BID #4 tablet Lactobacillus Rhamnosus GG [Culturelle] 1 cap PO BID #60 cap Melatonin [Melatin] 9 mg PO BEDTIME #90 tablet risperiDONE [RisperiDAL] 0.5 mg PO BEDTIME #30 tablet Home Medications: Home Meds Acetaminophen/HYDROcodone [[place] 325-5 MG] 1 - 2 tab PO Q6H PRN #20 tab [Rx] Cyanocobalamin (Vitamin B-12) [Vitamin B-12] 1,000 mcg SL DAILY 11/25/17 [ History] Lisinopril 40 mg PO DAILY 11/25/17 [History] Metoprolol Tartrate 100 mg PO BID 11/25/17 [History] Simvastatin [Zocor] 20 mg PO BEDTIME 11/25/17 [History] amLODIPine Besylate [Amlodipine Besylate] 5 mg PO DAILY 11/25/17 [History] hydrALAZINE [Apresoline] 50 mg PO BID 11/25/17 [History] levETIRAcetam [Keppra] 500 mg PO BID 11/25/17 [History] Polyethylene Glycol 3350 [MiraLAX] 1 packet PO BID 11/29/17 [History] Amoxicillin/Clavulanate K [Augmentin 875-125 MG] 1 tab PO BID #4 tablet [Rx] Lactobacillus Rhamnosus GG [Culturelle] 1 cap PO BID #60 cap 12/09/17 [Rx] Melatonin [Melatin] 9 mg PO BEDTIME #90 tablet 12/09/17 [Rx] risperiDONE [RisperiDAL] 0.5 mg PO BEDTIME #30 tablet 12/09/17 [Rx] Referrals: Bogdan Roe MD [Primary Care Provider] - - Discharge Summary/Plan Comment DC Time >30 min.: No - Patient Data Vitals - Most Recent: Last Vital Signs Temp 96.9 F 12/09/17 08:04 Pulse 64 12/09/17 08:21 Resp 14 12/09/17 08:04 BP 156/63 H 12/09/17 08:22 Pulse Ox 93 L 12/09/17 08:04 Weight - Most Recent: 200 lb I&O - Last 24 hours: Intake & Output 12/08/17 12/09/17 12/09/17 22:59 06:59 14:59 Intake Total 440 460 Output Total 75 1900 Balance 365 -1900 460 Med Orders - Current: Current Medications Acetaminophen (Tylenol Extra Strength) 1,000 mg PO TID [facility] Last Admin: 12/09/17 08:20 Dose: 1,000 mg Albuterol (Proventil Neb Soln) 2.5 mg NEB Q4H PRN PRN Reason: shortness of breath/wheezing Albuterol/Ipratropium (Duoneb 3.0-0.5 Mg/3 Ml) 3 ml NEB QIDRT [facility] Last Admin: 12/09/17 07:28 Dose: 3 ml Amlodipine Besylate (Norvasc) 5 mg PO DAILY [facility] Last Admin: 12/09/17 08:21 Dose: 5 mg Amoxicillin/Clavulanate Potassium (Augmentin 875 Mg/125 Mg) 1 tab PO BID [facility] Last Admin: 12/09/17 08:21 Dose: 1 tab Aspirin (Halfprin) 81 mg PO DAILY [facility] Last Admin: 12/09/17 08:21 Dose: 81 mg Bisacodyl (Dulcolax) 10 mg RECTAL DAILY PRN PRN Reason: CONSTIPATION Last Admin: 12/09/17 08:15 Dose: 10 mg Gabapentin (Neurontin) 200 mg PO BID [facility] Last Admin: 12/09/17 08:21 Dose: 200 mg Haloperidol (Haldol) 1 mg PO Q4H PRN PRN Reason: Agitation Hydralazine HCl (Apresoline) 50 mg PO BID [facility] Last Admin: 12/09/17 08:20 Dose: 50 mg Lactobacillus Rhamnosus (Culturelle) 2 cap PO BID [facility] Last Admin: 12/09/17 08:20 Dose: 2 cap Levetiracetam (Keppra) 500 mg PO BID [facility] Last Admin: 12/09/17 08:21 Dose: 500 mg Lidocaine (Lidoderm 5%) 700 mg TOP Q24H [facility] Last Admin: 12/09/17 09:41 Dose: 700 mg Lisinopril (Prinivil) 40 mg PO DAILY [facility] Last Admin: 12/09/17 08:22 Dose: 40 mg Magnesium Hydroxide (Milk Of Magnesia) 30 ml PO BID PRN PRN Reason: CONSTIPATION Last Admin: 12/09/17 08:15 Dose: 30 ml Melatonin (Melatonin) 9 mg PO BEDTIME [facility] Last Admin: 12/08/17 20:47 Dose: 9 mg Metoprolol Tartrate (Lopressor) 100 mg PO BID [facility] Last Admin: 12/09/17 08:21 Dose: 100 mg Remove Lidocaine (Patch) 0 each TOP Q24H [facility] Last Admin: 12/08/17 21:00 Dose: Not Given Polyethylene Glycol (Miralax) 17 gm PO DAILY PRN PRN Reason: CONSTIPATION Last Admin: 12/06/17 16:06 Dose: 17 gm Risperidone (Risperidal) 0.5 mg PO BEDTIME [facility] Last Admin: 12/08/17 20:45 Dose: 0.5 mg Sodium Chloride (Saline Flush) 10 ml FLUSH ASDIRECTED PRN PRN Reason: Keep Vein Open Tamsulosin HCl (Flomax) 0.4 mg PO DAILY [facility] Last Admin: 12/09/17 08:21 Dose: 0.4 mg Discontinued Medications Amlodipine Besylate (Norvasc) 5 mg PO DAILY [facility] Last Admin: 11/30/17 09:03 Dose: 5 mg Amlodipine Besylate (Norvasc) Confirm Administered Dose 5 mg .ROUTE .[facility]-MED ONE Stop: 11/29/17 20:42 Last Admin: 11/30/17 11:57 Dose: Not Given Amlodipine Besylate (Norvasc) 5 mg PO DAILY [facility] Last Admin: 12/04/17 14:39 Dose: Not Given Bisacodyl (Dulcolax) 10 mg RECTAL ONETIME ONE Stop: 11/29/17 11:50 Last Admin: 11/29/17 11:57 Dose: 10 mg Hydralazine HCl (Apresoline) 50 mg PO BID [facility] Last Admin: 11/30/17 09:01 Dose: 50 mg Sodium Chloride (Normal Saline) 1,000 mls @ 100 mls/hr IV ASDIRECTED [facility] Last Admin: 11/29/17 20:30 Dose: 100 mls/hr Sodium Chloride (Normal Saline) 1,000 mls @ 500 mls/hr IV ASDIRECTED [facility] Stop: 12/04/17 14:16 Last Admin: 12/04/17 13:05 Dose: 500 mls/hr Ketorolac Tromethamine (Toradol) 15 mg IVPUSH ONETIME ONE Stop: 11/29/17 11:34 Last Admin: 11/29/17 11:44 Dose: 15 mg Levetiracetam (Keppra) 500 mg PO BID [facility] Last Admin: 11/30/17 09:02 Dose: 500 mg Levetiracetam (Keppra) Confirm Administered Dose 500 mg .ROUTE .STK-MED ONE Stop: 11/29/17 21:31 Last Admin: 11/29/17 21:30 Dose: 500 mg Lisinopril (Prinivil) 40 mg PO DAILY [facility] Last Admin: 11/30/17 09:02 Dose: 40 mg Lorazepam (Ativan) 1 mg IV NOW ONE Stop: 11/30/17 01:41 Last Admin: 11/30/17 01:50 Dose: 1 mg Lorazepam (Ativan) Confirm Administered Dose 2 mg .ROUTE .STK-MED ONE Stop: 11/30/17 01:45 Last Admin: 11/30/17 11:58 Dose: Not Given Metoprolol Tartrate (Lopressor) 100 mg PO BID [facility] Last Admin: 11/30/17 09:00 Dose: 100 mg Metoprolol Tart (100mg (Ptom)) 0 each PO BID [facility] Last Admin: 12/04/17 20:40 Dose: 1 each Hydralazine 50mg ( (Ptom)) 0 each PO BID [facility] Last Admin: 12/04/17 20:39 Dose: 1 each Lisinopril 40mg ( (Ptom)) 0 each PO DAILY [facility] Last Admin: 12/04/17 14:39 Dose: Not Given Levetiracetam 500mg ((Ptom)) 0 each PO BID [facility] Last Admin: 12/04/17 20:39 Dose: 1 each Potassium Chloride (Klor-Con M20) 40 meq PO ONETIME ONE Stop: 11/29/17 17:01 Last Admin: 11/29/17 20:35 Dose: 40 meq Sodium Biphosphate/Sodium Phosphate (Fleet Enema) 133 ml RECTAL ONETIME ONE Stop: 12/06/17 19:57 Last Admin: 12/07/17 00:56 Dose: 1 bottle Sodium Chloride (Saline Flush) 10 ml IV ONETIME ONE Stop: 11/29/17 18:01 Last Admin: 11/30/17 11:57 Dose: Not Given Tamsulosin HCl (Flomax) 0.4 mg PO ONETIME ONE Stop: 11/29/17 13:55 Last Admin: 11/29/17 14:12 Dose: 0.4 mg - Exam General: Reports: Alert, Cooperative, No Acute Distress Lungs: Reports: Clear to Auscultation, Normal Respiratory Effort Cardiovascular: Reports: Regular Rate, Regular Rhythm, No Murmurs GI/Abdominal Exam: Soft, Non-Tender, No Organomegaly, No Distention Extremities: Non-Tender, No Pedal Edema
== END 2017-12-09 12:10 | DRG 177 ==
LOC: JP.ED 11:16 → JP.MS 17:34 → OBSVTOIN 12-04 16:53
PROVIDERS: ADMIT Internal Medicine; ATTEND Hospitalist
DX: M54.9 Dorsalgia, unspecified (principal); J69.0 Pneumonitis due to inhalation of food and vomit; J96.01 Acute respiratory failure with hypoxia; F02.81 Dementia in other diseases classified elsewhere, unspecified severity, with behavioral disturbance; F05 Delirium due to known physiological condition; N13.8 Other obstructive and reflux uropathy; K59.00 Constipation, unspecified; E78.00 Pure hypercholesterolemia, unspecified; G89.29 Other chronic pain; G30.9 Alzheimer's disease, unspecified; R56.9 Unspecified convulsions; N40.1 Benign prostatic hyperplasia with lower urinary tract symptoms; R33.8 Other retention of urine; R39.14 Feeling of incomplete bladder emptying; R53.1 Weakness; R26.81 Unsteadiness on feet; I12.9 Hypertensive chronic kidney disease with stage 1 through stage 4 chronic kidney disease, or unspecified chronic kidney disease; E87.6 Hypokalemia; N18.3 Chronic kidney disease, stage 3 (moderate); W19.XXXD Unspecified fall, subsequent encounter; I25.9 Chronic ischemic heart disease, unspecified; B02.9 Zoster without complications; S22.089D Unspecified fracture of T11-T12 vertebra, subsequent encounter for fracture with routine healing; E66.9 Obesity, unspecified; Z68.30 Body mass index [BMI] 30.0-30.9, adult; I25.2 Old myocardial infarction; Z85.038 Personal history of other malignant neoplasm of large intestine; Z91.14 Patient's other noncompliance with medication regimen; Z79.899 Other long term (current) drug therapy; Z85.820 Personal history of malignant melanoma of skin; Z95.5 Presence of coronary angioplasty implant and graft
CPT/HCPCS: 36415; 51701; 51798; 70450; 71045; 71045-26; 80048; 81001; 85027; 92610-GN; 94640; 96361; 96374; 96375; 97110-GP; 97116-GP; 97162-GP; 97530-GP; 99284; 99285-25; A9270-GY; G0378; J1885; J2060; J7040; J7620

== ENCOUNTER 2018-08-27 07:28 | Inpatient (IN) | payer MEDICARE, OTHER, MEDICAID ==
--- NOTE | 2018-08-27 08:25 | EDM.PDOC ---
ED HPI GENERAL MEDICAL PROBLEM - General Stated Complaint: [facility] Time Seen by Provider: 08/27/18 08:21 Source of Information: Reports: Patient History Limitations: Reports: No Limitations - History of Present Illness INITIAL COMMENTS - FREE TEXT/NARRATIVE: pt is more confused and he has had a cough. He seemed sob this am. His pulse was up and he had o2 sats in the 80s. He does not use o2 at the shelter. Onset: Gradual, Other ( last 2 days. ) Duration: Hour(s): Location: Reports: Chest Associated Symptoms: Reports: Confusion, Cough, Weakness, Other (pt is normally confused but he is more so today. ) - Related Data Allergies Allergy/AdvReac Type Severity Reaction Status Date / Time No Known Allergies Allergy Verified 08/27/18 08:29 Home Meds: Home Meds Cyanocobalamin (Vitamin B-12) [Vitamin B-12] 1,000 mcg SL DAILY 11/25/17 [ History] Simvastatin [Zocor] 20 mg PO BEDTIME 11/25/17 [History] amLODIPine Besylate [Amlodipine Besylate] 5 mg PO DAILY 11/25/17 [History] hydrALAZINE [Apresoline] 50 mg PO BID 11/25/17 [History] levETIRAcetam [Keppra] 500 mg PO BID 11/25/17 [History] Melatonin [Melatin] 9 mg PO BEDTIME #90 tablet 12/09/17 [Rx] Calcium Polycarbophil [Fiber Laxative] 625 mg PO DAILY 08/27/18 [History] Cyanocobalamin (Vitamin B-12) [Vitamin B-12] 1,000 mcg SL DAILY 08/27/18 [ History] DULoxetine HCl [Duloxetine HCl] 20 mg PO DAILY 08/27/18 [History] Gabapentin [Neurontin] 300 mg PO BEDTIME 08/27/18 [History] Levothyroxine [Synthroid] 50 mcg PO ACBREAKFAST 08/27/18 [History] Nystatin [Mycostatin] 100,000 unit PO BID 08/27/18 [History] Polyethylene Glycol 3350 [MiraLAX] 17 gm PO DAILY 08/27/18 [History] Past Medical History - Past Health History Medical/Surgical History: Denies Medical/Surgical History Cardiovascular History: Reports: High Cholesterol, Hypertension, [place], Stents Gastrointestinal History: Reports: Chronic Constipation Genitourinary History: Reports: Retention, Urinary Other Genitourinary History: neuromuscular dysfunction of bladder Musculoskeletal History: Reports: Back Pain, Chronic, Fracture Neurological History: Reports: Alzheimers Disease, Seizure Other Neuro History: wedge compression fracture of T11-T12 Psychiatric History: Reports: Alzheimers Disease, Dementia, Depression Endocrine/Metabolic History: Reports: Hypothyroidism Hematologic History: Reports: B12 Deficiency Oncologic (Cancer) History: Reports: Colon, Malignant Melanoma Dermatologic History: Reports: Melanoma - Past Surgical History Cardiovascular Surgical History: Reports: Coronary Artery Stent GI Surgical History: Reports: Small Bowel Musculoskeletal Surgical History: Reports: ORIF Social & Family History - Caffeine Use Caffeine Use: Reports: Coffee Other Caffeine Use: 1 cup daily ED ROS GENERAL - Review of Systems Review Of Systems: See Below Constitutional: Reports: Weakness HEENT: Reports: Other ( nasal congestion) Respiratory: Reports: Shortness of Breath, Other (pt has had noisy breathing. ) Cardiovascular: Reports: Palpitations, Other ( Pt did have a more rapid heart rate. ) Endocrine: Reports: No Symptoms GI/Abdominal: Reports: No Symptoms : Reports: Other (Pt has a parekh cath. ) Musculoskeletal: Reports: No Symptoms Skin: Reports: No Symptoms Neurological: Reports: No Symptoms Psychiatric: Reports: Agitation ED EXAM, GENERAL - Physical Exam Exam: See Below Free Text/Narrative:: pt arrived with low o2 sats and a history of a cough and increased confusion. The shelter did note a increased pulse Exam Limited By: Other (increased confusion) General Appearance: Alert, Mild Distress, Other (pupils are equal and reactive. ) Ears: Normal TMs Nose: Normal Inspection Throat/Mouth: Normal Inspection Head: Atraumatic Neck: Normal Inspection Respiratory/Chest: Decreased Breath Sounds, Crackles, Rhonchi, Other ( decreased breath sounds at the rt base. ) Cardiovascular: Other (p is having some ectopy. ) GI/Abdominal: Soft, Non-Tender (Male) Exam: Other (pt has a nephrostomy tube. ) Rectal (Males) Exam: Deferred Extremities: Normal Inspection Neurological: Alert, Confused Course - Vital Signs Last Recorded V/S: Last Vital Signs Temp 36.4 C 08/27/18 07:34 Pulse 88 08/27/18 07:34 Resp 22 H 08/27/18 07:34 BP 153/64 H 08/27/18 07:34 Pulse Ox 86 L 02/02/19 07:34 - Orders/Labs/Meds Orders: Active Orders 24 hr Category Date Time Status Chest 1V Frontal [CR] Stat Exams 08/27/18 07:52 Ordered Chest wo Cont [CT] Stat Exams 08/27/18 08:51 Ordered UA W/MICROSCOPIC [URIN] Urgent Lab 08/27/18 07:37 Ordered Sodium Chloride 0.9% [Normal Saline] 1,000 ml Med 08/27/18 08:45 Active IV ASDIRECTED Medication Orders Sodium Chloride (Normal Saline) 1,000 mls @ 500 mls/hr IV ASDIRECTED [facility] Last Admin: 08/27/18 08:52 Dose: 500 mls/hr Labs: Laboratory Tests 08/27/18 08/27/18 08/27/18 Range/Units 07:49 07:49 07:49 WBC 10.5 (4.5-11.0) K/uL RBC 3.50 L (4.30-5.90) M/uL Hgb 11.1 L (12.0-15.0) g/dL Hct 33.1 L (40.0-54.0) % MCV 95 (80-98) fL MCH 32 H (27-31) pg MCHC 34 (32-36) % Plt Count 197 (150-400) K/uL Neut % (Auto) 77 H (36-66) % Lymph % (Auto) 8 L (24-44) % Pierce % (Auto) 12 H (2-6) % Eos % (Auto) 3 (2-4) % Baso % (Auto) 0 (0-1) % Sodium 136 L (140-148) mmol/L Potassium 4.2 (3.6-5.2) mmol/L Chloride 104 (100-108) mmol/L Carbon Dioxide 21 (21-32) mmol/L Anion Gap 15.2 H (5.0-14.0) mmol/L BUN 26 H (7-18) mg/dL Creatinine 1.2 (0.8-1.3) mg/dL Est Cr Clr Drug Dosing TNP Estimated GFR (MDRD) 57 L (>60) Glucose 117 H (74-106) mg/dL Lactic Acid 1.2 (0.4-2.0) mmol/L Calcium 9.1 (8.5-10.1) mg/dL Total Bilirubin 0.5 (0.2-1.0) mg/dL AST 34 (15-37) U/L ALT 43 (12-78) U/L Alkaline Phosphatase 134 H (46-116) U/L C-Reactive Protein (0.0-0.3) mg/dL NT-Pro-B Natriuret Pep (5-450) pg/mL Total Protein 6.6 (6.4-8.2) g/dL Albumin 2.3 L (3.4-5.0) g/dL Globulin 4.3 H (2.3-3.5) g/dL Albumin/Globulin Ratio 0.5 L (1.2-2.2) 08/27/18 08/27/18 Range/Units 07:53 08:32 WBC (4.5-11.0) K/uL RBC (4.30-5.90) M/uL Hgb (12.0-15.0) g/dL Hct (40.0-54.0) % MCV (80-98) fL MCH (27-31) pg MCHC (32-36) % Plt Count (150-400) K/uL Neut % (Auto) (36-66) % Lymph % (Auto) (24-44) % Pierce % (Auto) (2-6) % Eos % (Auto) (2-4) % Baso % (Auto) (0-1) % Sodium (140-148) mmol/L Potassium (3.6-5.2) mmol/L Chloride (100-108) mmol/L Carbon Dioxide (21-32) mmol/L Anion Gap (5.0-14.0) mmol/L BUN (7-18) mg/dL Creatinine (0.8-1.3) mg/dL Est Cr Clr Drug Dosing Estimated GFR (MDRD) (>60) Glucose (74-106) mg/dL Lactic Acid (0.4-2.0) mmol/L Calcium (8.5-10.1) mg/dL Total Bilirubin (0.2-1.0) mg/dL AST (15-37) U/L ALT (12-78) U/L Alkaline Phosphatase (46-116) U/L C-Reactive Protein 9.42 H (0.0-0.3) mg/dL NT-Pro-B Natriuret Pep 1603 H (5-450) pg/mL Total Protein (6.4-8.2) g/dL Albumin (3.4-5.0) g/dL Globulin (2.3-3.5) g/dL Albumin/Globulin Ratio (1.2-2.2) Meds: Medications Generic Name Dose Route Start Last Admin Trade Name Freq PRN Reason Stop Dose Admin Sodium Chloride 1,000 mls @ 500 mls/hr 08/27/18 08:45 08/27/18 08:52 Normal Saline IV 500 mls/hr ASDIRECTED [facility] Administration Discontinued Medications Generic Name Dose Route Start Last Admin Trade Name Freq PRN Reason Stop Dose Admin Hydrocodone Bitart/Acetaminophen 1 tab 08/27/18 10:27 [place] 325-5 Mg PO 08/27/18 10:28 ONETIME ONE - Re-Assessments/Exams Free Text/Narrative Re-Assessment/Exam: 08/27/18 10:36 pt had low o2 sats and is doing well with 2 liters of o2. He has a normal wbc. He has alot of ectopy . He has a creatnine of 1.2. He does not have a fever/ He does have fluids running. His lactic acid was normal. His crp is over 9. His chest xray did reveal bilateral infiltrates. A cat scan of the chest was obtained which showed a effusion which involved the entire rt lower lobe area. There may be some infiltrate present. He has some infiltrate at the left lower lobe area. Departure - Departure Time of Disposition: 10:40 Disposition: Admitted As Inpatient 68 Condition: Fair Clinical Impression: Bilateral pneumonia, Pleural effusion, Confusion - Discharge Information Referrals: PCP,None [Primary Care Provider] - Care Plan Goals: admit to Dr del valle. - My Orders Last 24 Hours: My Active Orders 08/27/18 07:37 UA W/MICROSCOPIC [URIN] Urgent 08/27/18 07:52 Chest 1V Frontal [CR] Stat 08/27/18 08:45 Sodium Chloride 0.9% [Normal Saline] 1,000 ml IV ASDIRECTED 08/27/18 08:51 Chest wo Cont [CT] Stat - Assessment/Plan Last 24 Hours: My Active Orders 08/27/18 07:37 UA W/MICROSCOPIC [URIN] Urgent 08/27/18 07:52 Chest 1V Frontal [CR] Stat 08/27/18 08:45 Sodium Chloride 0.9% [Normal Saline] 1,000 ml IV ASDIRECTED 08/27/18 08:51 Chest wo Cont [CT] Stat
[2018-08-27] MEDS ORDERED: Sodium Chloride 0.9% 1,000 ML IV SCH (08:45)
[2018-08-27] MEDS ORDERED: Acetaminophen/HYDROcodone 325-5 MG Tab PO ONE (10:27)
--- NOTE | 2018-08-27 12:11 | PCM.HP ---
H&P History of Present Illness - General Date of Service: 08/27/18 Admit Problem/Dx: Admission Diagnosis/Problem Admission Diagnosis/Problem Pleural effusion on right Source of Information: Provider. No: Patient History Limitations: Reports: Altered Mental Status (dementia ) - History of Present Illness Initial Comments - Free Text/Narative: Jose was sent to the emergency department from [facility] after nursing staff noted concerns about high pulse and lower oxygen saturations. Jose has dementia and is having difficulty providing answers to review of systems questions and is an unreliable historian. History is gathered from emergency room personnel and longterm notes. Per report the patient had been doing fairly well yesterday but today was noted to have both Floxin saturations and an elevated pulse. He seemed more lethargic than usual and seemed weak. He was sent here for evaluation. When I talked to him he says that he feels fine and does not endorse shortness of breath, cough or abdominal pain. Apparently he did endorse some right mid back pain earlier and received a hydrocodone but this pain is gone currently. senior living notes did not say anything about him having a cough or other symptoms in the past couple of days. No fevers have been noted. Workup in the emergency room revealed a pleural effusion on the right side with chest x-ray imaging. There is also possibly a left lower lung pneumonia. A CT scan was undertaken to better determine the etiology behind the abnormal chest x -ray findings. CT scan suggested large right pleural effusion and probable left lower lobe pneumonia. Urinalysis is suggestive of infection though it is noted he has a chronic indwelling catheter. He will be admitted for management of pleural effusion, pneumonia and UTI. - Related Data Allergies/Adverse Reactions: Allergies Allergy/AdvReac Type Severity Reaction Status Date / Time No Known Allergies Allergy Verified 08/27/18 08:29 Home Medications: Home Meds Cyanocobalamin (Vitamin B-12) [Vitamin B-12] 1,000 mcg SL DAILY 11/25/17 [ History] Simvastatin [Zocor] 20 mg PO BEDTIME 11/25/17 [History] amLODIPine Besylate [Amlodipine Besylate] 5 mg PO DAILY 11/25/17 [History] hydrALAZINE [Apresoline] 50 mg PO BID 11/25/17 [History] levETIRAcetam [Keppra] 500 mg PO BID 11/25/17 [History] Melatonin [Melatin] 9 mg PO BEDTIME #90 tablet 12/09/17 [Rx] Calcium Polycarbophil [Fiber Laxative] 625 mg PO DAILY 08/27/18 [History] Cyanocobalamin (Vitamin B-12) [Vitamin B-12] 1,000 mcg SL DAILY 08/27/18 [ History] DULoxetine HCl [Duloxetine HCl] 20 mg PO DAILY 08/27/18 [History] Gabapentin [Neurontin] 300 mg PO BEDTIME 08/27/18 [History] Levothyroxine [Synthroid] 50 mcg PO ACBREAKFAST 08/27/18 [History] Nystatin [Mycostatin] 100,000 unit PO BID 08/27/18 [History] Polyethylene Glycol 3350 [MiraLAX] 17 gm PO DAILY 08/27/18 [History] Past Medical History - Past Health History Medical/Surgical History: Denies Medical/Surgical History Cardiovascular History: Reports: High Cholesterol, Hypertension, [place], Stents Gastrointestinal History: Reports: Chronic Constipation Genitourinary History: Reports: Retention, Urinary Other Genitourinary History: neuromuscular dysfunction of bladder Musculoskeletal History: Reports: Back Pain, Chronic, Fracture Neurological History: Reports: Alzheimers Disease, Seizure Other Neuro History: wedge compression fracture of T11-T12 Psychiatric History: Reports: Alzheimers Disease, Dementia, Depression Endocrine/Metabolic History: Reports: Hypothyroidism Hematologic History: Reports: B12 Deficiency Oncologic (Cancer) History: Reports: Colon, Malignant Melanoma Dermatologic History: Reports: Melanoma - Past Surgical History Cardiovascular Surgical History: Reports: Coronary Artery Stent GI Surgical History: Reports: Small Bowel Musculoskeletal Surgical History: Reports: ORIF Social & Family History - Family History Family Medical History: Unobtainable (dementia) - Tobacco Use Smoking Status *Q: Unknown Ever Smoked - Caffeine Use Caffeine Use: Reports: Coffee Other Caffeine Use: 1 cup daily - Alcohol Use Alcohol Use History: No H&P Review of Systems - Review of Systems: Review Of Systems: Unable To Obtain Free Text/Narrative: pt has dementia, ROS is unreliable, no recall for morning events. Exam - Exam Exam: See Below - Vital Signs Vital Signs: Last Vital Signs Temp 36.2 C 08/27/18 10:37 Pulse 78 08/27/18 10:37 Resp 16 08/27/18 10:37 BP 147/70 H 08/27/18 10:37 Pulse Ox 91 L 08/27/18 10:37 Weight: 88 kg - Exam Quality Assessment: Supplemental Oxygen General: Alert, Cooperative. No: Oriented, Mild Distress HEENT: Conjunctiva Clear. No: Mucosa Moist & [place] (dry), Scleral Icterus Neck: Supple, Trachea Midline. No: Lymphadenopathy Lungs: Normal Respiratory Effort, Decreased Breath Sounds (right mid and lower lung ). No: Wheezing Cardiovascular: Regular Rate, Regular Rhythm, Systolic Murmur GI/Abdominal Exam: Normal Bowel Sounds, Soft, Non-Tender, No Distention Back Exam: Normal Inspection, Full Range of Motion Extremities: Pedal Edema (mild bilateral ). No: Increased Warmth Skin: Warm, Dry Neuro Extensive - Mental Status: Alert, Nl Response to Commands. No: Oriented x3 Neuro Extensive - Motor, Sensory, Reflexes: No: Dysarthria, Abnormal Motor, Tremor Psychiatric: Alert, Normal Affect - Patient Data Lab Results Last 24 hrs: Laboratory Results - last 24 hr 08/27/18 08/27/18 08/27/18 Range/Units 07:49 07:49 07:49 WBC 10.5 (4.5-11.0) K/uL RBC 3.50 L (4.30-5.90) M/uL Hgb 11.1 L (12.0-15.0) g/dL Hct 33.1 L (40.0-54.0) % MCV 95 (80-98) fL MCH 32 H (27-31) pg MCHC 34 (32-36) % Plt Count 197 (150-400) K/uL Neut % (Auto) 77 H (36-66) % Lymph % (Auto) 8 L (24-44) % [place] % (Auto) 12 H (2-6) % Eos % (Auto) 3 (2-4) % Baso % (Auto) 0 (0-1) % Sodium 136 L (140-148) mmol/L Potassium 4.2 (3.6-5.2) mmol/L Chloride 104 (100-108) mmol/L Carbon Dioxide 21 (21-32) mmol/L Anion Gap 15.2 H (5.0-14.0) mmol/L BUN 26 H (7-18) mg/dL Creatinine 1.2 (0.8-1.3) mg/dL Est Cr Clr Drug Dosing TNP Estimated GFR (MDRD) 57 L (>60) Glucose 117 H (74-106) mg/dL Lactic Acid 1.2 (0.4-2.0) mmol/L Calcium 9.1 (8.5-10.1) mg/dL Total Bilirubin 0.5 (0.2-1.0) mg/dL AST 34 (15-37) U/L ALT 43 (12-78) U/L Alkaline Phosphatase 134 H (46-116) U/L C-Reactive Protein (0.0-0.3) mg/dL NT-Pro-B Natriuret Pep (5-450) pg/mL Total Protein 6.6 (6.4-8.2) g/dL Albumin 2.3 L (3.4-5.0) g/dL Globulin 4.3 H (2.3-3.5) g/dL Albumin/Globulin Ratio 0.5 L (1.2-2.2) 08/27/18 08/27/18 Range/Units 07:53 08:32 WBC (4.5-11.0) K/uL RBC (4.30-5.90) M/uL Hgb (12.0-15.0) g/dL Hct (40.0-54.0) % MCV (80-98) fL MCH (27-31) pg MCHC (32-36) % Plt Count (150-400) K/uL Neut % (Auto) (36-66) % Lymph % (Auto) (24-44) % [place] % (Auto) (2-6) % Eos % (Auto) (2-4) % Baso % (Auto) (0-1) % Sodium (140-148) mmol/L Potassium (3.6-5.2) mmol/L Chloride (100-108) mmol/L Carbon Dioxide (21-32) mmol/L Anion Gap (5.0-14.0) mmol/L BUN (7-18) mg/dL Creatinine (0.8-1.3) mg/dL Est Cr Clr Drug Dosing Estimated GFR (MDRD) (>60) Glucose (74-106) mg/dL Lactic Acid (0.4-2.0) mmol/L Calcium (8.5-10.1) mg/dL Total Bilirubin (0.2-1.0) mg/dL AST (15-37) U/L ALT (12-78) U/L Alkaline Phosphatase (46-116) U/L C-Reactive Protein 9.42 H (0.0-0.3) mg/dL NT-Pro-B Natriuret Pep 1603 H (5-450) pg/mL Total Protein (6.4-8.2) g/dL Albumin (3.4-5.0) g/dL Globulin (2.3-3.5) g/dL Albumin/Globulin Ratio (1.2-2.2) Result Diagrams: 08/27/18 07:49 08/27/18 07:49 Imaging Impressions Last 24 hrs: CXR - right pleural effusion, possible left sided pneumonia CT chest - large right pleural effusion and left infiltrate vs dense atelectasis EKG INTERPRETATION EKG Date: 08/27/18 Rhythm: NSR Rate (Beats/Min): 82 Joshua: LAD-Left Joshua Deviation P-Wave: Present QRS: LBBB ST-T: Normal QT: Normal EKG Interpretation Comments: the ekg image was personally reviewed in the ED *Q Meaningful Use (ADM) - VTE Risk Assess *Q Each Risk Factor Represents 1 Point: Swollen Legs, Current, Obesity ( BMI > 25 kg/m2), Serious lung disease including pneumonia Total Score 1 Point Risk Factors: 3 Each Risk Factor Represents 2 Points: Malignancy (present or previous) Total Score 2 Point Risk Factors: 2 Each Risk Factor Represents 3 Points: Age 75 Years or Greater Total Score 3 Point Risk Factors: 3 Each Risk Factor Represents 5 Points: None Total Score 5 Point Risk Factors: 0 Venous Thromboembolism Risk Factor Score *Q: 8 - Problem List (1) Bilateral pneumonia SNOMED Code(s): 310028345 ICD Code: J18.9 - PNEUMONIA, UNSPECIFIED ORGANISM Status: Acute Current Visit: Yes Qualifiers: Pneumonia type: due to unspecified organism Lung location: lower lobe of lung Qualified Code(s): J18.1 - Lobar pneumonia, unspecified organism (2) Acute respiratory failure with hypoxia SNOMED Code(s): 43670550, 097444684 ICD Code: J96.01 - ACUTE RESPIRATORY FAILURE WITH HYPOXIA Status: Acute Current Visit: Yes (3) Pleural effusion SNOMED Code(s): 69991107 ICD Code: J90 - PLEURAL EFFUSION, NOT ELSEWHERE CLASSIFIED Status: Acute Current Visit: Yes (4) Complicated urinary tract infection SNOMED Code(s): 11386742 ICD Code: N39.0 - URINARY TRACT INFECTION, SITE NOT SPECIFIED Status: Suspected Current Visit: Yes (5) Chronic retention of urine SNOMED Code(s): 520065686 ICD Code: R33.9 - RETENTION OF URINE, UNSPECIFIED Status: Chronic Current Visit: No (6) CKD (chronic kidney disease), stage III SNOMED Code(s): 253757417 ICD Code: N18.3 - CHRONIC KIDNEY DISEASE, STAGE 3 (MODERATE) Status: Chronic Current Visit: Yes (7) Alzheimer's dementia without behavioral disturbance SNOMED Code(s): 88699622 ICD Code: G30.9 - ALZHEIMER'S DISEASE, UNSPECIFIED; F02.80 - DEMENTIA IN OTH DISEASES CLASSD ELSWHR W/O BEHAVRL DISTURB Status: Chronic Current Visit: Yes Qualifiers: Alzheimer's disease onset: late-onset Qualified Code(s): G30.1 - Alzheimer' s disease with late onset; F02.80 - Dementia in other diseases classified elsewhere without behavioral disturbance Problem List Initiated/Reviewed/Updated: Yes Orders Last 24hrs: Active Orders 24 hr Category Date Time Status Patient Status Manage Transfer [TRANSFER] Routine ADT 08/27/18 11:53 Ordered EKG Documentation Completion [RC] ASDIRECTED Care 08/27/18 10:35 Active Chest 1V Frontal [CR] Stat Exams 08/27/18 07:52 Ordered Chest wo Cont [CT] Stat Exams 08/27/18 08:51 Ordered UA W/MICROSCOPIC [URIN] Urgent Lab 08/27/18 12:04 Ordered Sodium Chloride 0.9% [Normal Saline] 1,000 ml Med 08/27/18 08:45 Active IV ASDIRECTED Resuscitation Status Routine Resus Stat 08/27/18 11:57 Ordered EKG 12 Lead [EK] Routine Ther 08/27/18 10:35 Ordered Medication Orders Sodium Chloride (Normal Saline) 1,000 mls @ 500 mls/hr IV ASDIRECTED MIKHAIL Last Admin: 08/27/18 08:52 Dose: 500 mls/hr Assessment/Plan Comment:: ASSESSMENT AND PLAN - Bilateral pneumonia - complicated by acute respiratory failure with hypoxia. He also has a large right-sided pleural effusion. I'm not sure if this is related to the pneumonia or a separate issue. He is currently hypoxic and requiring supplemental oxygen. Minimally symptomatic. No significant tachycardia at this time. -Antibiotic coverage with Pip/Tazo -Supplement oxygen -Nebulizers -Pain control if necessary -Cough suppressant Large right pleural effusion - unclear if related to current infection or a separate issue. No history of congestive heart failure. He does have some pain in the area so this will likely be an inflammatory effusion. -Ultrasound marking for thoracentesis -Consult Dr. 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 urine moderately suggestive of infection. Any infection should be covered by the antibiotics as above. -Follow-up urine culture -Antibiotics as above Stage III chronic kidney disease - kidney function near baseline. Alzheimer's disease - no behavior issues at this time. Maintenance issues - - DVT prophylaxis - mechanical with JOSÉ MIGUEL stockings - GI prophylaxis - not indicated - Nutrition - regular diet - Saha catheter - chronic indwelling Saha catheter CODE STATUS - DNR/DNI per advance directive Admission justification - This patient will be admitted for inpatient services and is medically appropriate meeting medical necessity for inpatient admission as outlined in my documentation. I reasonably expect the patient will require inpatient services that span a period time over 2 midnights. I reasonably expect this patient to be discharged or transferred within 96 hours [facility]. Disposition - I would anticipate discharge back to the longterm after the hospital stay Primary care physician - Dr. Jyothi Monahan M.D.
[2018-08-27] MEDS ORDERED: Acetaminophen/HYDROcodone 325-5 MG Tab PO PRN (12:41)
[2018-08-27] MEDS ORDERED: Acetaminophen 325 MG Tab PO PRN (12:41)
[2018-08-27] MEDS ORDERED: Magnesium Hydroxide 400 MG/5 ML Susp 30 ML Cup PO PRN (12:41)
[2018-08-27] MEDS ORDERED: Ondansetron 4 MG/2 ML SDV IV PRN (12:41)
[2018-08-27] MEDS ORDERED: Ondansetron 4 MG Tab.DIS PO PRN (12:41)
[2018-08-27] MEDS ORDERED: guaiFENesin/Dextromethorphan 100-10 MG/5 ML Soln 10 ML Cup PO PRN (12:41)
[2018-08-27] MEDS ORDERED: Albuterol 0.083% 2.5 MG/3 ML Neb Soln NEB PRN (12:41)
[2018-08-27] MEDS: Piperacillin/Tazobactam/Dext 3.375 GM in Premix Bag 1 BAG IV SCH ×2 (13:40→21:34)
[2018-08-27] MEDS ORDERED: Non-Formulary Medication 1 Each (Levetiracetam [Keppra] 500 MG) PO SCH (21:00)
[2018-08-27] MEDS ORDERED: Non-Formulary Medication 1 Each (Hydralazine [Apresoline] 50 MG) PO SCH (21:00)
[2018-08-27] MEDS: hydrALAZINE 25 MG Tab PO SCH (21:37)
[2018-08-27] MEDS: levETIRAcetam 250 MG Tab PO SCH (21:37)
[2018-08-27] MEDS: Gabapentin 300 MG Cap PO SCH (21:38)
[2018-08-27] MEDS: Melatonin 3 MG Tab PO SCH (21:38)
[2018-08-27] MEDS: Simvastatin 20 MG Tab PO SCH (21:39)
[2018-08-28] MEDS: Piperacillin/Tazobactam/Dext 3.375 GM in Premix Bag 1 BAG IV SCH ×4 (01:35→19:39)
[2018-08-28] MEDS: Levothyroxine 50 MCG Tab PO SCH (07:38)
[2018-08-28] MEDS ORDERED: Non-Formulary Medication 1 Each (Cyanocobalamin (Vitamin B-12) [Vitamin B-12] 1,000 MCG) SL SCH (09:00)
[2018-08-28] MEDS: hydrALAZINE 25 MG Tab PO SCH ×2 (09:12→20:14)
[2018-08-28] MEDS: levETIRAcetam 250 MG Tab PO SCH ×2 (09:12→20:14)
[2018-08-28] MEDS: Polyethylene Glycol 3350 Powder 17 GM Packet PO SCH (09:13)
[2018-08-28] MEDS: amLODIPine 5 MG Tab PO SCH (09:13)
[2018-08-28] MEDS: Cyanocobalamin (Vitamin B12) 1,000 MCG Tab SL SCH (09:13)
[2018-08-28] MEDS: DULoxetine 20 MG Cap PO SCH (09:13)
[2018-08-28] MEDS: Calcium Polycarbophil 625 MG Tab PO SCH (09:13)
--- NOTE | 2018-08-28 12:30 | PCM.PN ---
- General Info Date of Service: 08/28/18 Subjective Update: There were no acute events overnight. Because of his dementia he is unable to provide any useful information about overnight activities or symptoms. He does continue to require supplemental oxygen. He had a thoracentesis this morning performed by Dr. Rizo and had nearly 3 L of fluid removed. Gram stain did not reveal bacteria or fungal elements. He continues to require supplemental oxygen. He does not currently report any pain issues. Functional Status: Reports: Pain Controlled - Review of Systems General: Denies: Fever Pulmonary: Reports: Shortness of Breath - Patient Data Vitals - Most Recent: Last Vital Signs Temp 36.1 C 08/28/18 11:05 Pulse 90 08/28/18 11:05 Resp 16 08/28/18 11:05 BP 129/54 L 08/28/18 11:05 Pulse Ox 95 08/28/18 11:05 Weight - Most Recent: 88 kg I&O - Last 24 Hours: Intake & Output 08/27/18 08/28/18 08/28/18 22:59 06:59 14:59 Intake Total 290 230 170 Output Total 4257 633 3521 Balance -760 -13 -4406 Lab Results Last 24 Hours: Laboratory Results - last 24 hr 08/28/18 08/28/18 08/28/18 Range/Units 06:08 06:08 08:04 WBC 8.1 (4.5-11.0) K/uL RBC 3.34 L (4.30-5.90) M/uL Hgb 10.2 L (12.0-15.0) g/dL Hct 31.8 L (40.0-54.0) % MCV 95 (80-98) fL MCH 31 (27-31) pg MCHC 32 (32-36) % Plt Count 198 (150-400) K/uL Sodium 138 L (140-148) mmol/L Potassium 4.2 (3.6-5.2) mmol/L Chloride 107 (100-108) mmol/L Carbon Dioxide 22 (21-32) mmol/L Anion Gap 13.2 (5.0-14.0) mmol/L BUN 20 H (7-18) mg/dL Creatinine 1.2 (0.8-1.3) mg/dL Est Cr Clr Drug Dosing 42.75 mL/min Estimated GFR (MDRD) 57 L (>60) Glucose 105 (74-106) mg/dL Calcium 8.9 (8.5-10.1) mg/dL Lactate Dehydrogenase (85-227) U/L Fluid Type Pleural fluid Fluid pH Fluid WBC /ul Fluid RBC /ul Fluid Diff Comment Fluid Mononuclear Cell % Fl Polymorphonucl Cell % Fluid Glucose 107 mg/dL Fluid Total Protein 4.2 g/dL Fluid Amylase 48 U/L 08/28/18 08/28/18 08/28/18 Range/Units 08:04 08:04 08:04 WBC (4.5-11.0) K/uL RBC (4.30-5.90) M/uL Hgb (12.0-15.0) g/dL Hct (40.0-54.0) % MCV (80-98) fL MCH (27-31) pg MCHC (32-36) % Plt Count (150-400) K/uL Sodium (140-148) mmol/L Potassium (3.6-5.2) mmol/L Chloride (100-108) mmol/L Carbon Dioxide (21-32) mmol/L Anion Gap (5.0-14.0) mmol/L BUN (7-18) mg/dL Creatinine (0.8-1.3) mg/dL Est Cr Clr Drug Dosing mL/min Estimated GFR (MDRD) (>60) Glucose (74-106) mg/dL Calcium (8.5-10.1) mg/dL Lactate Dehydrogenase 136 (85-227) U/L Fluid Type Pleural fluid Pleural fluid Fluid pH 8 Fluid WBC 1913 /ul Fluid RBC 3263 /ul Fluid Diff Comment Fluid Mononuclear Cell 45 % Fl Polymorphonucl Cell 55 % Fluid Glucose mg/dL Fluid Total Protein g/dL Fluid Amylase U/L Morgan Results Last 24 Hours: Microbiology 08/28/18 08:32 CHRISTOPHER Preparation - Preliminary Other - Pleural Cavity, Right 08/28/18 08:04 Gram Stain - Final Pleural Fluid - Pleural Cavity, Right Med Orders - Current: Current Medications Acetaminophen (Tylenol) 650 mg PO Q4H PRN PRN Reason: Pain (Mild 1-3)/fever Hydrocodone Bitart/Acetaminophen ([place] 325-5 Mg) 1 tab PO Q4H PRN PRN Reason: Pain (moderate 4-6) Albuterol (Proventil Neb Soln) 2.5 mg NEB Q4H PRN PRN Reason: Shortness Of Breath/wheezing Amlodipine Besylate (Norvasc) 5 mg PO DAILY [facility] Last Admin: 08/28/18 09:13 Dose: 5 mg Calcium Polycarbophil (Fibercon) 625 mg PO DAILY [facility] Last Admin: 08/28/18 09:13 Dose: 625 mg Cyanocobalamin (Vitamin B12) 1,000 mcg SL DAILY [facility] Last Admin: 08/28/18 09:13 Dose: 1,000 mcg Duloxetine HCl (Cymbalta) 20 mg PO DAILY [facility] Last Admin: 08/28/18 09:13 Dose: 20 mg Gabapentin (Neurontin) 300 mg PO BEDTIME [facility] Last Admin: 08/27/18 21:38 Dose: 300 mg Guaifenesin/Dextromethorphan (Robitussin Dm) 10 ml PO Q4H PRN PRN Reason: Cough Hydralazine HCl (Apresoline) 50 mg PO BID [facility] Last Admin: 08/28/18 09:12 Dose: 50 mg Piperacillin/Tazobactam/ (Dextrose 3.375 gm/ Premix) 50 mls @ 100 mls/hr IV Q6H [facility] Last Admin: 08/28/18 08:13 Dose: 100 mls/hr Levetiracetam (Keppra) 500 mg PO BID [facility] Last Admin: 08/28/18 09:12 Dose: 500 mg Levothyroxine Sodium (Synthroid) 50 mcg PO ACBREAKFAST [facility] Last Admin: 08/28/18 07:38 Dose: 50 mcg Magnesium Hydroxide (Milk Of Magnesia) 30 ml PO Q12H PRN PRN Reason: Constipation Melatonin (Melatonin) 9 mg PO BEDTIME [facility] Last Admin: 08/27/18 21:38 Dose: 9 mg Ondansetron HCl (Zofran Odt) 4 mg PO Q6H PRN PRN Reason: Nausea able to take PO Ondansetron HCl (Zofran) 4 mg IV Q6H PRN PRN Reason: Nausea/Vomiting Polyethylene Glycol (Miralax) 17 gm PO DAILY [facility] Last Admin: 08/28/18 09:13 Dose: 17 gm Simvastatin (Zocor) 20 mg PO BEDTIME [facility] Last Admin: 08/27/18 21:39 Dose: 20 mg Discontinued Medications Hydrocodone Bitart/Acetaminophen ([place] 325-5 Mg) 1 tab PO ONETIME ONE Stop: 08/27/18 10:28 Last Admin: 08/27/18 10:36 Dose: 1 tab Sodium Chloride (Normal Saline) 1,000 mls @ 500 mls/hr IV ASDIRECTED MIKHAIL Last Admin: 08/27/18 08:52 Dose: 500 mls/hr - Exam Quality Assessment: Supplemental Oxygen General: Alert, Cooperative, No Acute Distress. No: Oriented Lungs: Normal Respiratory Effort, Crackles (A few right lung base) Cardiovascular: Regular Rate, Regular Rhythm GI/Abdominal Exam: Soft, No Distention Extremities: No Pedal Edema. No: Increased Warmth Skin: Warm, Dry Psy/Mental Status: Alert, Normal Affect - Problem List & Annotations (1) Bilateral pneumonia SNOMED Code(s): 282716522 Code(s): J18.9 - PNEUMONIA, UNSPECIFIED ORGANISM Status: Acute Current Visit: Yes Qualifiers: Pneumonia type: due to unspecified organism Lung location: lower lobe of lung Qualified Code(s): J18.1 - Lobar pneumonia, unspecified organism (2) Acute respiratory failure with hypoxia SNOMED Code(s): 42195389, 971058880 Code(s): J96.01 - ACUTE RESPIRATORY FAILURE WITH HYPOXIA Status: Acute Current Visit: Yes (3) Pleural effusion SNOMED Code(s): 49037464 Code(s): J90 - PLEURAL EFFUSION, NOT ELSEWHERE CLASSIFIED Status: Acute Current Visit: Yes (4) Complicated urinary tract infection SNOMED Code(s): 02761974 Code(s): N39.0 - URINARY TRACT INFECTION, SITE NOT SPECIFIED Status: Suspected Current Visit: Yes (5) Chronic retention of urine SNOMED Code(s): 674295925 Code(s): R33.9 - RETENTION OF URINE, UNSPECIFIED Status: Chronic Current Visit: No (6) CKD (chronic kidney disease), stage III SNOMED Code(s): 583369755 Code(s): N18.3 - CHRONIC KIDNEY DISEASE, STAGE 3 (MODERATE) Status: Chronic Current Visit: Yes (7) Alzheimer's dementia without behavioral disturbance SNOMED Code(s): 74777581 Code(s): G30.9 - ALZHEIMER'S DISEASE, UNSPECIFIED; F02.80 - DEMENTIA IN OTH DISEASES CLASSD ELSWHR W/O BEHAVRL DISTURB Status: Chronic Current Visit: Yes Qualifiers: Alzheimer's disease onset: late-onset Qualified Code(s): G30.1 - Alzheimer' s disease with late onset; F02.80 - Dementia in other diseases classified elsewhere without behavioral disturbance - Problem List Review Problem List Initiated/Reviewed/Updated: Yes - My Orders Last 24 Hours: My Active Orders 08/27/18 11:57 Resuscitation Status Routine 08/27/18 12:41 Patient Status [ADT] Routine Antiembolic Devices [RC] .Routine Intake and Output [RC] QSHIFT Notify Provider Consults [RC] ASDIRECTED Notify Provider Vital Signs [RC] ASDIRECTED Oxygen Therapy [RC] PRN Pulse Oximetry [RC] CONTINUOUS RT Aerosol Therapy [RC] ASDIRECTED Up With Assistance [RC] ASDIRECTED Vital Signs [RC] Q4H Consult to Physician [CONS] Routine US Guidance Thoracentesis NC [US] Routine Acetaminophen [Tylenol] 650 mg PO Q4H PRN Acetaminophen/HYDROcodone [[place]llo 325-5 MG] 1 tab PO Q4H PRN Albuterol [Proventil Neb Soln] 2.5 mg NEB Q4H PRN Dextromethorphan/guaiFENesin [Robitussin DM] 10 ml PO Q4H PRN Magnesium Hydroxide [Milk of Magnesia] 30 ml PO Q12H PRN Ondansetron [Zofran ODT] 4 mg PO Q6H PRN Ondansetron [Zofran] 4 mg IV Q6H PRN Antiembolic Hose [OM.PC] Per Unit Routine 08/27/18 14:00 Piperacillin/Tazobactam/Dext [Zosyn in Dextrose Iso-Osmotic 3.375 GM] 3.375 gm Premix Bag 1 bag IV Q6H 08/27/18 16:44 CULTURE URINE [RM] Routine 08/27/18 21:00 Gabapentin [Neurontin] 300 mg PO BEDTIME Melatonin 9 mg PO BEDTIME Simvastatin [Zocor] 20 mg PO BEDTIME hydrALAZINE [Apresoline] 50 mg PO BID levETIRAcetam [Keppra] 500 mg PO BID 08/27/18 Lunch Regular Diet [DIET] 08/28/18 07:30 Levothyroxine [Synthroid] 50 mcg PO ACBREAKFAST 08/28/18 08:02 CULTURE FUNGAL [MYC] Routine 08/28/18 08:32 CHRISTOPHER PREP [MYC] Routine 08/28/18 09:00 Calcium Polycarbophil [Fibercon] 625 mg PO DAILY Cyanocobalamin (Vitamin B12) [Vitamin B12] 1,000 mcg SL DAILY DULoxetine [Cymbalta] 20 mg PO DAILY Polyethylene Glycol 3350 [MiraLAX] 17 gm PO DAILY amLODIPine [Norvasc] 5 mg PO DAILY 08/29/18 05:00 BASIC METABOLIC PANEL,BMP [CHEM] Timed CBC W/O DIFF,HEMOGRAM [HEME] Timed (1) - Plan Plan:: ASSESSMENT AND PLAN - Bilateral pneumonia - complicated by acute respiratory failure with hypoxia. Repeat CT after thoracentesis today showed atelectasis versus infiltrate in both lower lungs. He has not had any fevers. He is still on supplemental oxygen but seems better today. -Antibiotic coverage with Pip/Tazo -Supplement oxygen -Nebulizers -Pain control if necessary -Cough suppressant Large right pleural effusion - unclear if related to current infection or a separate issue. No history of congestive heart failure. He is now status post thoracentesis with removal of nearly 3 L of fluid. No organisms seen on the Gram stain. Respiratory status stable but still requiring supplemental oxygen. 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 urine moderately suggestive of infection. Any infection should be covered by the antibiotics as above. -Follow-up urine culture -Antibiotics as above Stage III chronic kidney disease - kidney function near baseline. Alzheimer's disease - no behavior issues at this time. Maintenance issues - - DVT prophylaxis - mechanical with JOSÉ MIGUEL stockings - GI prophylaxis - not indicated - Nutrition - regular diet - Saha catheter - chronic indwelling Saha catheter Disposition - I would anticipate discharge back to the senior care after the hospital stay Primary care physician - Dr. Jyothi Monahan M.D.
[2018-08-28] MEDS: Melatonin 3 MG Tab PO SCH (20:14)
[2018-08-28] MEDS: Gabapentin 300 MG Cap PO SCH (20:16)
[2018-08-28] MEDS: Simvastatin 20 MG Tab PO SCH (20:16)
[2018-08-29] MEDS: Piperacillin/Tazobactam/Dext 3.375 GM in Premix Bag 1 BAG IV SCH ×4 (02:22→20:54)
--- NOTE | 2018-08-29 07:56 | PN ---
DATE OF SERVICE: 08/29/2018 SUBJECTIVE: Xavi is an 88-year-old who had a thoracentesis with removal of 2900 on 08/28/2018. He is resting quietly. Vital signs have been stable. OBJECTIVE: Exam deferred. ASSESSMENT: Thoracentesis; Rasta Rizo M.D.; 08/28/2018. PLAN: Dressing may be removed. To follow up p.r.n. by Surgical Department. Yue Moore PA-C /[phone]
[2018-08-29] MEDS: levETIRAcetam 250 MG Tab PO SCH ×2 (08:16→20:56)
[2018-08-29] MEDS: Calcium Polycarbophil 625 MG Tab PO SCH (08:16)
[2018-08-29] MEDS: hydrALAZINE 25 MG Tab PO SCH ×2 (08:16→20:55)
[2018-08-29] MEDS: Levothyroxine 50 MCG Tab PO SCH (08:16)
[2018-08-29] MEDS: Cyanocobalamin (Vitamin B12) 1,000 MCG Tab SL SCH (08:17)
[2018-08-29] MEDS: DULoxetine 20 MG Cap PO SCH (08:17)
[2018-08-29] MEDS: amLODIPine 5 MG Tab PO SCH (08:18)
[2018-08-29] MEDS: Polyethylene Glycol 3350 Powder 17 GM Packet PO SCH (08:18)
--- NOTE | 2018-08-29 13:38 | PN ---
DATE OF SERVICE: 08/28/2018 The patient has been clinically stable overnight. He had a thoracentesis done on the right side removing 2900 mL of clear serous-type fluid and a followup chest x-ray is pending. We will obtain a CT scan of his chest today to evaluate the underlying pulmonary status. His creatinine clearance is only around 42. So, I think we will do this without any IV contrast, particularly given the amount of fluid being removed rendering him likely somewhat volume depleted. Otherwise, continue care along with Dr. Monahan. Rasta Rizo MD Job #: [id number]
--- NOTE | 2018-08-29 13:39 | OR ---
DATE OF PROCEDURE: 08/28/2018 PREOPERATIVE DIAGNOSIS: Large right pleural effusion. POSTOPERATIVE DIAGNOSIS: Large right pleural effusion. PROCEDURE: Ultrasound-guided right thoracentesis. ANESTHESIA: Local. INDICATION FOR PROCEDURE: The patient presents with a large right pleural effusion along with some shortness of breath. The plan is to do the right thoracentesis for therapeutic and diagnostic purposes. Potential risks of the procedure were reviewed with the patient including bleeding, infection, pneumothorax, and the patient wishes to proceed. DESCRIPTION OF PROCEDURE: At the patient's hospital bed, the right posterior lateral chest was marked by ultrasound and adequate location for the thoracentesis. The area was then prepped and draped and anesthetized with 1% lidocaine, and thoracentesis catheter was placed, 2900 mL of straw-colored fluid was removed, as much fluid as possible was removed and at that point, the catheter was withdrawn and dressing applied. Chest x-ray is pending. There were no other complications. Rasta Rizo MD Job #: [id number]
--- NOTE | 2018-08-29 16:55 | PCM.PN ---
- General Info Date of Service: 08/29/18 Subjective Update: Mr. Lowery is been stable since yesterday, following thoracentesis performed by Dr. Rizo. Almost 3 L of fluid were removed, follow-up CT scan showed only small bilateral effusions with atelectasis versus infiltrate. Mr. Lowery is unable to provide meaningful information concerning symptoms or review of systems because of his significant dementia. - Patient Data Vitals - Most Recent: Last Vital Signs Temp 95.6 F 08/29/18 14:48 Pulse 78 08/29/18 14:48 Resp 18 08/29/18 14:48 BP 149/51 H 08/29/18 14:48 Pulse Ox 95 08/29/18 14:48 Weight - Most Recent: 199 lb 15.983 oz I&O - Last 24 Hours: Intake & Output 08/29/18 08/29/18 08/29/18 06:59 14:59 22:59 Intake Total 50 630 50 Output Total 300 400 Balance -250 230 50 Lab Results Last 24 Hours: Laboratory Results - last 24 hr 08/29/18 08/29/18 Range/Units 06:01 06:01 WBC 7.9 (4.5-11.0) K/uL RBC 3.38 L (4.30-5.90) M/uL Hgb 10.5 L (12.0-15.0) g/dL Hct 32.3 L (40.0-54.0) % MCV 96 (80-98) fL MCH 31 (27-31) pg MCHC 33 (32-36) % Plt Count 211 (150-400) K/uL Sodium 141 (140-148) mmol/L Potassium 3.8 (3.6-5.2) mmol/L Chloride 109 H (100-108) mmol/L Carbon Dioxide 24 (21-32) mmol/L Anion Gap 11.8 (5.0-14.0) mmol/L BUN 19 H (7-18) mg/dL Creatinine 1.3 (0.8-1.3) mg/dL Est Cr Clr Drug Dosing 39.46 mL/min Estimated GFR (MDRD) 52 L (>60) Glucose 105 (74-106) mg/dL Calcium 9.0 (8.5-10.1) mg/dL Morgan Results Last 24 Hours: Microbiology 08/28/18 08:04 Gram Stain - Final Pleural Fluid - Pleural Cavity, Right Body Fluid Culture - Preliminary NO GROWTH AFTER 1 DAY 08/27/18 16:44 Urine Culture - Final Urine, Catheterized Citrobacter Freundii 08/28/18 08:32 CHRISTOPHER Preparation - Final Other - Pleural Cavity, Right Med Orders - Current: Current Medications Acetaminophen (Tylenol) 650 mg PO Q4H PRN PRN Reason: Pain (Mild 1-3)/fever Hydrocodone Bitart/Acetaminophen ([place] 325-5 Mg) 1 tab PO Q4H PRN PRN Reason: Pain (moderate 4-6) Albuterol (Proventil Neb Soln) 2.5 mg NEB Q4H PRN PRN Reason: Shortness Of Breath/wheezing Amlodipine Besylate (Norvasc) 5 mg PO DAILY [facility] Last Admin: 08/29/18 08:18 Dose: 5 mg Calcium Polycarbophil (Fibercon) 625 mg PO DAILY [facility] Last Admin: 08/29/18 08:16 Dose: 625 mg Cyanocobalamin (Vitamin B12) 1,000 mcg SL DAILY [facility] Last Admin: 08/29/18 08:17 Dose: 1,000 mcg Duloxetine HCl (Cymbalta) 20 mg PO DAILY [facility] Last Admin: 08/29/18 08:17 Dose: 20 mg Gabapentin (Neurontin) 300 mg PO BEDTIME [facility] Last Admin: 08/28/18 20:16 Dose: 300 mg Guaifenesin/Dextromethorphan (Robitussin Dm) 10 ml PO Q4H PRN PRN Reason: Cough Hydralazine HCl (Apresoline) 50 mg PO BID [facility] Last Admin: 08/29/18 08:16 Dose: 50 mg Piperacillin/Tazobactam/ (Dextrose 3.375 gm/ Premix) 50 mls @ 100 mls/hr IV Q6H [facility] Last Admin: 08/29/18 14:03 Dose: 100 mls/hr Levetiracetam (Keppra) 500 mg PO BID [facility] Last Admin: 08/29/18 08:16 Dose: 500 mg Levothyroxine Sodium (Synthroid) 50 mcg PO ACBREAKFAST [facility] Last Admin: 08/29/18 08:16 Dose: 50 mcg Magnesium Hydroxide (Milk Of Magnesia) 30 ml PO Q12H PRN PRN Reason: Constipation Last Admin: 08/28/18 15:33 Dose: 30 ml Melatonin (Melatonin) 9 mg PO BEDTIME [facility] Last Admin: 08/28/18 20:14 Dose: 9 mg Ondansetron HCl (Zofran Odt) 4 mg PO Q6H PRN PRN Reason: Nausea able to take PO Ondansetron HCl (Zofran) 4 mg IV Q6H PRN PRN Reason: Nausea/Vomiting Polyethylene Glycol (Miralax) 17 gm PO DAILY [facility] Last Admin: 08/29/18 08:18 Dose: 17 gm Simvastatin (Zocor) 20 mg PO BEDTIME [facility] Last Admin: 08/28/18 20:16 Dose: 20 mg Discontinued Medications Hydrocodone Bitart/Acetaminophen ([place] 325-5 Mg) 1 tab PO ONETIME ONE Stop: 08/27/18 10:28 Last Admin: 08/27/18 10:36 Dose: 1 tab Sodium Chloride (Normal Saline) 1,000 mls @ 500 mls/hr IV ASDIRECTED [facility] Last Admin: 08/27/18 08:52 Dose: 500 mls/hr - Exam General: Alert, Cooperative, No Acute Distress. No: Oriented Lungs: Clear to Auscultation, Normal Respiratory Effort Cardiovascular: Regular Rate, Regular Rhythm, No Murmurs GI/Abdominal Exam: Soft, Non-Tender, No Organomegaly, No Distention Extremities: Non-Tender, No Pedal Edema - Problem List Review Problem List Initiated/Reviewed/Updated: Yes - My Orders Last 24 Hours: My Active Orders 08/29/18 08:52 Echo Comp wo Cont [US] Urgent 08/30/18 05:00 BASIC METABOLIC PANEL,BMP [CHEM] Timed CBC WITH AUTO DIFF [HEME] Timed MAGNESIUM [CHEM] Timed - Plan Plan:: ASSESSMENT AND PLAN - Bilateral pneumonia - complicated by acute respiratory failure with hypoxia. Repeat CT after thoracentesis yesterday showed atelectasis versus infiltrate in both lower lungs. He has not had any fevers. Stable over the past 24 hours. -Antibiotic coverage with Pip/Tazo -Supplement oxygen -Nebulizers -Pain control if necessary -Cough suppressant Diastolic and systolic congestive heart failure-cardiogram obtained today shows decrease in left ventricular function with estimated ejection fraction of 40-45 % as well as grade 2 diastolic dysfunction. -Start oral diuretic therapy with furosemide 20 mg by mouth daily tomorrow Large right pleural effusion - unclear if related to current infection or a separate issue. He is now status post thoracentesis with removal of nearly 3 L of fluid yesterday. No organisms seen on the Gram stain. Respiratory status stable but still requiring supplemental oxygen. 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 urine moderately suggestive of infection. Any infection should be covered by the antibiotics as above. -Follow-up urine culture -Antibiotics as above Stage III chronic kidney disease - kidney function near baseline. Alzheimer's disease - no behavior issues at this time. Maintenance issues - - DVT prophylaxis - mechanical with JOSÉ MIGUEL stockings - GI prophylaxis - not indicated - Nutrition - regular diet - Saha catheter - chronic indwelling Saha catheter Disposition - I would anticipate discharge back to the care home after the hospital stay Primary care physician - Dr. Roe
[2018-08-29] MEDS: Gabapentin 300 MG Cap PO SCH (20:56)
[2018-08-29] MEDS: Melatonin 3 MG Tab PO SCH (20:56)
[2018-08-29] MEDS: Simvastatin 20 MG Tab PO SCH (20:57)
[2018-08-30] MEDS: Piperacillin/Tazobactam/Dext 3.375 GM in Premix Bag 1 BAG IV SCH ×2 (02:36→08:28)
[2018-08-30] MEDS: Levothyroxine 50 MCG Tab PO SCH (07:38)
[2018-08-30] MEDS: Calcium Polycarbophil 625 MG Tab PO SCH (08:59)
[2018-08-30] MEDS: Magnesium Oxide 400 MG Tab PO SCH ×2 (08:59→21:08)
[2018-08-30] MEDS: Furosemide 20 MG Tab PO SCH (09:00)
[2018-08-30] MEDS: levETIRAcetam 250 MG Tab PO SCH ×2 (09:00→21:08)
[2018-08-30] MEDS: DULoxetine 20 MG Cap PO SCH (09:00)
[2018-08-30] MEDS: hydrALAZINE 25 MG Tab PO SCH ×2 (09:00→21:07)
[2018-08-30] MEDS: Cyanocobalamin (Vitamin B12) 1,000 MCG Tab SL SCH (09:00)
[2018-08-30] MEDS: Polyethylene Glycol 3350 Powder 17 GM Packet PO SCH (09:00)
[2018-08-30] MEDS ORDERED: Magnesium Sulfate/Water 2 GM in Premix Bag 1 BAG IV ONE (09:00)
[2018-08-30] MEDS: amLODIPine 5 MG Tab PO SCH (09:01)
--- NOTE | 2018-08-30 12:25 | PCM.PN ---
- General Info Date of Service: 08/30/18 Subjective Update: Mr. Lowery has remained stable since yesterday, denies discomfort or shortness of breath. Chest x-ray obtained this morning shows small residual pleural effusion, no significant recurrence. He is unable to provide meaningful information concerning symptoms or review of systems because of underlying dementia. - Patient Data Vitals - Most Recent: Last Vital Signs Temp 95.0 F L 08/30/18 10:47 Pulse 66 08/30/18 10:47 Resp 18 08/30/18 10:47 BP 129/47 L 08/30/18 10:47 Pulse Ox 97 08/30/18 10:47 Weight - Most Recent: 199 lb 15.983 oz I&O - Last 24 Hours: Intake & Output 08/29/18 08/30/18 08/30/18 22:59 06:59 14:59 Intake Total 580 50 450 Output Total 400 475 Balance 180 -425 450 Lab Results Last 24 Hours: Laboratory Results - last 24 hr 08/30/18 08/30/18 Range/Units 05:00 05:00 WBC 7.8 (4.5-11.0) K/uL RBC 3.32 L (4.30-5.90) M/uL Hgb 10.1 L (12.0-15.0) g/dL Hct 32.2 L (40.0-54.0) % MCV 97 (80-98) fL MCH 30 (27-31) pg MCHC 31 L (32-36) % Plt Count 203 (150-400) K/uL Neut % (Auto) 68 H (36-66) % Lymph % (Auto) 12 L (24-44) % Jerome % (Auto) 10 H (2-6) % Eos % (Auto) 10 H (2-4) % Baso % (Auto) 1 (0-1) % Sodium 140 (140-148) mmol/L Potassium 3.9 (3.6-5.2) mmol/L Chloride 108 (100-108) mmol/L Carbon Dioxide 23 (21-32) mmol/L Anion Gap 8.9 (5.0-14.0) mmol/L BUN 19 H (7-18) mg/dL Creatinine 1.2 (0.8-1.3) mg/dL Est Cr Clr Drug Dosing 42.91 mL/min Estimated GFR (MDRD) 57 L (>60) Glucose 98 (74-106) mg/dL Calcium 8.7 (8.5-10.1) mg/dL Magnesium 1.7 L (1.8-2.4) mg/dL Morgan Results Last 24 Hours: Microbiology 08/28/18 08:04 Gram Stain - Final Pleural Fluid - Pleural Cavity, Right Body Fluid Culture - Preliminary NO GROWTH AFTER 2 DAYS 08/27/18 16:44 Urine Culture - Final Urine, Catheterized Citrobacter Freundii Med Orders - Current: Current Medications Acetaminophen (Tylenol) 650 mg PO Q4H PRN PRN Reason: Pain (Mild 1-3)/fever Hydrocodone Bitart/Acetaminophen ([place] 325-5 Mg) 1 tab PO Q4H PRN PRN Reason: Pain (moderate 4-6) Albuterol (Proventil Neb Soln) 2.5 mg NEB Q4H PRN PRN Reason: Shortness Of Breath/wheezing Amlodipine Besylate (Norvasc) 5 mg PO DAILY [facility] Last Admin: 08/30/18 09:01 Dose: 5 mg Calcium Polycarbophil (Fibercon) 625 mg PO DAILY [facility] Last Admin: 08/30/18 08:59 Dose: 625 mg Cyanocobalamin (Vitamin B12) 1,000 mcg SL DAILY [facility] Last Admin: 08/30/18 09:00 Dose: 1,000 mcg Duloxetine HCl (Cymbalta) 20 mg PO DAILY [facility] Last Admin: 08/30/18 09:00 Dose: 20 mg Furosemide (Lasix) 20 mg PO DAILY [facility] Last Admin: 08/30/18 09:00 Dose: 20 mg Gabapentin (Neurontin) 300 mg PO BEDTIME [facility] Last Admin: 08/29/18 20:56 Dose: 300 mg Guaifenesin/Dextromethorphan (Robitussin Dm) 10 ml PO Q4H PRN PRN Reason: Cough Hydralazine HCl (Apresoline) 50 mg PO BID [facility] Last Admin: 08/30/18 09:00 Dose: 50 mg Piperacillin/Tazobactam/ (Dextrose 3.375 gm/ Premix) 50 mls @ 100 mls/hr IV Q6H [facility] Last Admin: 08/30/18 08:28 Dose: 100 mls/hr Levetiracetam (Keppra) 500 mg PO BID [facility] Last Admin: 08/30/18 09:00 Dose: 500 mg Levothyroxine Sodium (Synthroid) 50 mcg PO ACBREAKFAST [facility] Last Admin: 08/30/18 07:38 Dose: 50 mcg Magnesium Hydroxide (Milk Of Magnesia) 30 ml PO Q12H PRN PRN Reason: Constipation Last Admin: 08/28/18 15:33 Dose: 30 ml Magnesium Oxide (Magnesium Oxide) 400 mg PO BID [facility] Last Admin: 08/30/18 08:59 Dose: 400 mg Melatonin (Melatonin) 9 mg PO BEDTIME [facility] Last Admin: 08/29/18 20:56 Dose: 9 mg Ondansetron HCl (Zofran Odt) 4 mg PO Q6H PRN PRN Reason: Nausea able to take PO Ondansetron HCl (Zofran) 4 mg IV Q6H PRN PRN Reason: Nausea/Vomiting Polyethylene Glycol (Miralax) 17 gm PO DAILY [facility] Last Admin: 08/30/18 09:00 Dose: 17 gm Simvastatin (Zocor) 20 mg PO BEDTIME [facility] Last Admin: 08/29/18 20:57 Dose: 20 mg Discontinued Medications Hydrocodone Bitart/Acetaminophen ([place] 325-5 Mg) 1 tab PO ONETIME ONE Stop: 08/27/18 10:28 Last Admin: 08/27/18 10:36 Dose: 1 tab Sodium Chloride (Normal Saline) 1,000 mls @ 500 mls/hr IV ASDIRECTED [facility] Last Admin: 08/27/18 08:52 Dose: 500 mls/hr Magnesium Sulfate 2 gm/ Premix 50 mls @ 25 mls/hr IV ONETIME ONE Stop: 08/30/18 10:59 Last Admin: 08/30/18 08:59 Dose: 25 mls/hr - Exam Quality Assessment: DVT Prophylaxis General: Alert, Cooperative, No Acute Distress. No: Oriented Lungs: Clear to Auscultation, Normal Respiratory Effort Cardiovascular: Regular Rate, Regular Rhythm, No Murmurs GI/Abdominal Exam: Soft, Non-Tender, No Organomegaly, No Distention Extremities: Non-Tender, No Pedal Edema - Problem List Review Problem List Initiated/Reviewed/Updated: Yes - My Orders Last 24 Hours: My Active Orders 08/30/18 05:00 Chest 1V Frontal [CR] Timed 08/30/18 09:00 Furosemide [Lasix] 20 mg PO DAILY Magnesium Oxide 400 mg PO BID 08/31/18 05:00 MAGNESIUM [CHEM] Timed - Plan Plan:: ASSESSMENT AND PLAN - Bilateral pneumonia - complicated by acute respiratory failure with hypoxia. Stable since yesterday, no significant respiratory compromise at the present time. -Transitioned to oral antibiotic therapy today -Supplement oxygen -Nebulizers -Pain control if necessary -Cough suppressant Diastolic and systolic congestive heart failure-cardiogram obtained today shows decrease in left ventricular function with estimated ejection fraction of 40-45 % as well as grade 2 diastolic dysfunction. -Furosemide 20 mg by mouth daily Large right pleural effusion - no evidence of significant recurrence noted on follow-up chest x-ray. Cultures from thoracentesis remain negative thus far -supplemental oxygen. 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 urine moderately suggestive of infection. Any infection should be covered by the antibiotics as above. Citrobacter growing from urine culture sensitive to current therapy -Antibiotics as above Stage III chronic kidney disease - kidney function near baseline. Alzheimer's disease - no behavior issues at this time. Maintenance issues - - DVT prophylaxis - mechanical with JOSÉ MIGUEL stockings - GI prophylaxis - not indicated - Nutrition - regular diet - Saha catheter - chronic indwelling Saha catheter Disposition - I would anticipate discharge back to the shelter after the hospital stay Primary care physician - Dr. Roe
[2018-08-30] MEDS ORDERED: Levofloxacin 250 MG Tab PO SCH (14:00)
[2018-08-30] MEDS: Simvastatin 20 MG Tab PO SCH (21:08)
[2018-08-30] MEDS: Melatonin 3 MG Tab PO SCH (21:08)
[2018-08-30] MEDS: Lactobacillus Rhamnosus GG (Probiotic) Cap PO SCH (21:08)
[2018-08-30] MEDS: Gabapentin 300 MG Cap PO SCH (21:08)
[2018-08-31] MEDS: Furosemide 20 MG Tab PO SCH (08:53)
[2018-08-31] MEDS: levETIRAcetam 250 MG Tab PO SCH (08:54)
[2018-08-31] MEDS: amLODIPine 5 MG Tab PO SCH (08:54)
[2018-08-31] MEDS: hydrALAZINE 25 MG Tab PO SCH (08:54)
[2018-08-31] MEDS: Cyanocobalamin (Vitamin B12) 1,000 MCG Tab SL SCH (08:54)
[2018-08-31] MEDS: Polyethylene Glycol 3350 Powder 17 GM Packet PO SCH (08:55)
[2018-08-31] MEDS: Calcium Polycarbophil 625 MG Tab PO SCH (08:55)
[2018-08-31] MEDS: Levothyroxine 50 MCG Tab PO SCH (08:55)
[2018-08-31] MEDS: Magnesium Oxide 400 MG Tab PO SCH (08:55)
[2018-08-31] MEDS: Lactobacillus Rhamnosus GG (Probiotic) Cap PO SCH (08:55)
[2018-08-31] MEDS: DULoxetine 20 MG Cap PO SCH (08:56)
--- NOTE | 2018-08-31 12:36 | PCM.DCSUM1 ---
Discharge Summary - Hospital Course Brief History: Mr. Lowery is an 88-year-old gentleman who was admitted through the emergency department with increased weakness and shortness of breath secondary to bilateral pneumonia as well as large pleural effusion. - Discharge Data Discharge Date: 08/31/18 Discharge Disposition: DC/Tfer to SNF 03 Condition: Fair - Discharge Diagnosis/Problem(s) (1) Bilateral pneumonia SNOMED Code(s): 320180839 ICD Code: J18.9 - PNEUMONIA, UNSPECIFIED ORGANISM Status: Acute Current Visit: Yes Qualifiers: Pneumonia type: due to unspecified organism Lung location: lower lobe of lung Qualified Code(s): J18.1 - Lobar pneumonia, unspecified organism (2) Pleural effusion SNOMED Code(s): 55242814 ICD Code: J90 - PLEURAL EFFUSION, NOT ELSEWHERE CLASSIFIED Status: Acute Current Visit: Yes (3) CKD (chronic kidney disease), stage III SNOMED Code(s): 159097694 ICD Code: N18.3 - CHRONIC KIDNEY DISEASE, STAGE 3 (MODERATE) Status: Chronic Current Visit: Yes (4) Alzheimer's dementia without behavioral disturbance SNOMED Code(s): 65790084 ICD Code: G30.9 - ALZHEIMER'S DISEASE, UNSPECIFIED; F02.80 - DEMENTIA IN OTH DISEASES CLASSD ELSWHR W/O BEHAVRL DISTURB Status: Chronic Current Visit: Yes Qualifiers: Alzheimer's disease onset: late-onset Qualified Code(s): G30.1 - Alzheimer' s disease with late onset; F02.80 - Dementia in other diseases classified elsewhere without behavioral disturbance (5) Acute respiratory failure with hypoxia SNOMED Code(s): 84541886, 756023398 ICD Code: J96.01 - ACUTE RESPIRATORY FAILURE WITH HYPOXIA Status: Acute Current Visit: Yes (6) Complicated urinary tract infection SNOMED Code(s): 25623931 ICD Code: N39.0 - URINARY TRACT INFECTION, SITE NOT SPECIFIED Status: Suspected Current Visit: Yes (7) Suprapubic catheter SNOMED Code(s): 630234972, 933568890 ICD Code: Z93.59 - OTHER CYSTOSTOMY STATUS Status: Chronic Current Visit : No (8) Diastolic CHF, chronic SNOMED Code(s): 150295208, 011746052 ICD Code: I50.32 - CHRONIC DIASTOLIC (CONGESTIVE) HEART FAILURE Status: Acute Current Visit: Yes (9) Systolic CHF, chronic SNOMED Code(s): 518366679, 754968079 ICD Code: I50.22 - CHRONIC SYSTOLIC (CONGESTIVE) HEART FAILURE Status: Acute Current Visit: Yes - Patient Summary/Data Consults: Consultations 08/27/18 12:41 Consult to Physician [CONS] Routine Consulting Provider: Rasta Rizo Courtesy Call Completed to Consulting Physician: Yes Reason for Consult: right pleural effusion Person Notified: ARORA Date Notified: 08/27/18 Special Instructions: thoracentesis in the morning Hospital Course: Mr. Lowery was sent to the emergency department from [facility] after nursing staff noted concerns about high pulse and lower oxygen saturations. Jose has dementia and is having difficulty providing answers to review of systems questions and is an unreliable historian. History is gathered from emergency room personnel and [facility] notes. Per report the patient had been doing fairly well yesterday but today was noted to have both decreased oxygen saturations and an elevated pulse. He seemed more lethargic than usual and seemed weak. He was sent here for evaluation. When I talked to him he says that he feels fine and does not endorse shortness of breath, cough or abdominal pain. Apparently he did endorse some right mid back pain earlier and received a hydrocodone but this pain is gone currently. [facility] notes did not say anything about him having a cough or other symptoms in the past couple of days. No fevers have been noted. Workup in the emergency room revealed a pleural effusion on the right side with chest x-ray imaging. There is also possibly a left lower lung pneumonia. A CT scan was undertaken to better determine the etiology behind the abnormal chest x-ray findings. CT scan suggested large right pleural effusion and probable left lower lobe pneumonia. Urinalysis is suggestive of infection though it is noted he has a chronic indwelling catheter. He will be admitted for management of pleural effusion, pneumonia and UTI. On admission sputum cultures, and urine culture were obtained. He was started on broad-spectrum IV antibiotic therapy pending culture results and initially given IV fluids for hydration. Because of the large right pleural effusion he was seen and evaluated by Dr. Rizo in the thoracentesis was performed, removing 2-1/2 L of liquid. Analysis of fluid was felt to be consistent with a transudate. Cultures obtained at the time of thoracentesis remained negative until the time of discharge. Urine culture did grow out Citrobacter and he will be discharged back to home on an additional 2 days of oral levofloxacin. Echocardiogram was obtained which showed evidence of mild systolic heart failure as well as evidence of mild to moderate diastolic heart failure. Heart failure was felt to be the most likely cause of the underlying pleural effusion. He improved significantly with antibiotic therapy and removal of the large pleural effusion on the right. Left lung pneumonia also seemed to improve with no further significant temperature elevations. He continued to require supplemental oxygen throughout the hospital stay and will be discharged back to the [place] on 2 L of oxygen per minute via nasal cannula. Activity will be as tolerated and he will be on a strict 2 g sodium diet. Follow-up lab including BMP will be obtained in one week. Follow-up with primary care will be at the [facility] as needed. - Patient Instructions Diet: Low Sodium Activity: As Tolerated Other/Special Instructions: Oxygen 1-2 L/m via nasal cannula. Follow-up lab in 1 week; BMP - Discharge Plan *PRESCRIPTION DRUG MONITORING PROGRAM REVIEWED*: Not Applicable *COPY OF PRESCRIPTION DRUG MONITORING REPORT IN PATIENT PADMINI: Not Applicable Prescriptions/Med Rec: Furosemide [Lasix] 20 mg PO DAILY #30 tablet Lactobacillus Rhamnosus GG [Culturelle] 1 cap PO BID #60 cap Home Medications: Home Meds Cyanocobalamin (Vitamin B-12) [Vitamin B-12] 1,000 mcg SL DAILY 11/25/17 [ History] Simvastatin [Zocor] 20 mg PO BEDTIME 11/25/17 [History] amLODIPine Besylate [Amlodipine Besylate] 5 mg PO DAILY 11/25/17 [History] hydrALAZINE [Apresoline] 50 mg PO BID 11/25/17 [History] levETIRAcetam [Keppra] 500 mg PO BID 11/25/17 [History] Melatonin [Melatin] 9 mg PO BEDTIME #90 tablet 12/09/17 [Rx] Calcium Polycarbophil [Fiber Laxative] 625 mg PO DAILY 08/27/18 [History] Cyanocobalamin (Vitamin B-12) [Vitamin B-12] 1,000 mcg SL DAILY 08/27/18 [ History] DULoxetine HCl [Duloxetine HCl] 20 mg PO DAILY 08/27/18 [History] Gabapentin [Neurontin] 300 mg PO BEDTIME 08/27/18 [History] Levothyroxine [Synthroid] 50 mcg PO ACBREAKFAST 08/27/18 [History] Nystatin 100,000 unit PO BID 08/27/18 [History] Polyethylene Glycol 3350 [MiraLAX] 17 gm PO DAILY 08/27/18 [History] Furosemide [Lasix] 20 mg PO DAILY #30 tablet 08/31/18 [Rx] Lactobacillus Rhamnosus GG [Culturelle] 1 cap PO BID #60 cap 08/31/18 [Rx] Oxygen Therapy Mode: Nasal Cannula Oxygen Flow Rate (L/min): 2 - Discharge Summary/Plan Comment DC Time >30 min.: No - Patient Data Vitals - Most Recent: Last Vital Signs Temp 96.5 F 08/31/18 11:38 Pulse 73 08/31/18 11:38 Resp 18 08/31/18 11:38 BP 154/38 H 08/31/18 11:38 Pulse Ox 96 08/31/18 11:38 Weight - Most Recent: 199 lb 15.983 oz I&O - Last 24 hours: Intake & Output 08/30/18 08/31/18 08/31/18 22:59 06:59 14:59 Intake Total 840 Output Total 600 250 Balance -600 590 Lab Results - Last 24 hrs: Laboratory Results - last 24 hr 08/31/18 Range/Units 05:15 Magnesium 1.9 (1.8-2.4) mg/dL ISMAEL Results - Last 24 hrs: Microbiology 08/28/18 08:04 Gram Stain - Final Pleural Fluid - Pleural Cavity, Right Body Fluid Culture - Final NO GROWTH AFTER 3 DAYS Med Orders - Current: Current Medications Acetaminophen (Tylenol) 650 mg PO Q4H PRN PRN Reason: Pain (Mild 1-3)/fever Hydrocodone Bitart/Acetaminophen ([place]owell 325-5 Mg) 1 tab PO Q4H PRN PRN Reason: Pain (moderate 4-6) Albuterol (Proventil Neb Soln) 2.5 mg NEB Q4H PRN PRN Reason: Shortness Of Breath/wheezing Amlodipine Besylate (Norvasc) 5 mg PO DAILY [facility] Last Admin: 08/31/18 08:54 Dose: 5 mg Calcium Polycarbophil (Fibercon) 625 mg PO DAILY [facility] Last Admin: 08/31/18 08:55 Dose: 625 mg Cyanocobalamin (Vitamin B12) 1,000 mcg SL DAILY [facility] Last Admin: 08/31/18 08:54 Dose: 1,000 mcg Duloxetine HCl (Cymbalta) 20 mg PO DAILY [facility] Last Admin: 08/31/18 08:56 Dose: 20 mg Furosemide (Lasix) 20 mg PO DAILY [facility] Last Admin: 08/31/18 08:53 Dose: 20 mg Gabapentin (Neurontin) 300 mg PO BEDTIME [facility] Last Admin: 08/30/18 21:08 Dose: 300 mg Guaifenesin/Dextromethorphan (Robitussin Dm) 10 ml PO Q4H PRN PRN Reason: Cough Hydralazine HCl (Apresoline) 50 mg PO BID [facility] Last Admin: 08/31/18 08:54 Dose: 50 mg Lactobacillus Rhamnosus (Culturelle) 1 cap PO BID [facility] Last Admin: 08/31/18 08:55 Dose: 1 cap Levetiracetam (Keppra) 500 mg PO BID [facility] Last Admin: 08/31/18 08:54 Dose: 500 mg Levofloxacin (Levaquin) 750 mg PO Q24H [facility] Last Admin: 08/30/18 14:08 Dose: 750 mg Levothyroxine Sodium (Synthroid) 50 mcg PO ACBREAKFAST [facility] Last Admin: 08/31/18 08:55 Dose: 50 mcg Magnesium Hydroxide (Milk Of Magnesia) 30 ml PO Q12H PRN PRN Reason: Constipation Last Admin: 08/28/18 15:33 Dose: 30 ml Magnesium Oxide (Magnesium Oxide) 400 mg PO BID [facility] Last Admin: 08/31/18 08:55 Dose: 400 mg Melatonin (Melatonin) 9 mg PO BEDTIME [facility] Last Admin: 08/30/18 21:08 Dose: 9 mg Ondansetron HCl (Zofran Odt) 4 mg PO Q6H PRN PRN Reason: Nausea able to take PO Ondansetron HCl (Zofran) 4 mg IV Q6H PRN PRN Reason: Nausea/Vomiting Polyethylene Glycol (Miralax) 17 gm PO DAILY [facility] Last Admin: 08/31/18 08:55 Dose: 17 gm Simvastatin (Zocor) 20 mg PO BEDTIME [facility] Last Admin: 08/30/18 21:08 Dose: 20 mg Discontinued Medications Hydrocodone Bitart/Acetaminophen (Dowell 325-5 Mg) 1 tab PO ONETIME ONE Stop: 08/27/18 10:28 Last Admin: 08/27/18 10:36 Dose: 1 tab Sodium Chloride (Normal Saline) 1,000 mls @ 500 mls/hr IV ASDIRECTED [facility] Last Admin: 08/27/18 08:52 Dose: 500 mls/hr Piperacillin/Tazobactam/ (Dextrose 3.375 gm/ Premix) 50 mls @ 100 mls/hr IV Q6H [facility] Last Admin: 08/30/18 08:28 Dose: 100 mls/hr Magnesium Sulfate 2 gm/ Premix 50 mls @ 25 mls/hr IV ONETIME ONE Stop: 08/30/18 10:59 Last Admin: 08/30/18 08:59 Dose: 25 mls/hr - Exam Quality Assessment: Reports: Supplemental Oxygen, Urine Catheter General: Reports: Alert, Cooperative, No Acute Distress. Denies: Oriented Lungs: Reports: Clear to Auscultation, Normal Respiratory Effort, Decreased Breath Sounds Cardiovascular: Reports: Regular Rate, Regular Rhythm, Murmurs GI/Abdominal Exam: Soft, Non-Tender, No Organomegaly, No Distention
== END 2018-08-31 13:10 | DRG 193 ==
LOC: JP.ED 07:28 → JP.MS 11:53
PROVIDERS: ADMIT Internal Medicine; ATTEND Hospitalist
PROC: 0W993ZZ Drainage of Right Pleural Cavity, Percutaneous Approach (ICD-10-PCS; principal; 2018-08-28)
DX: J18.1 Lobar pneumonia, unspecified organism (principal); J96.01 Acute respiratory failure with hypoxia; I12.9 Hypertensive chronic kidney disease with stage 1 through stage 4 chronic kidney disease, or unspecified chronic kidney disease; J90 Pleural effusion, not elsewhere classified; Z66 Do not resuscitate; T83.511A Infection and inflammatory reaction due to indwelling urethral catheter, initial encounter; N39.0 Urinary tract infection, site not specified; N13.8 Other obstructive and reflux uropathy; I13.0 Hypertensive heart and chronic kidney disease with heart failure and stage 1 through stage 4 chronic kidney disease, or unspecified chronic kidney disease; I50.42 Chronic combined systolic (congestive) and diastolic (congestive) heart failure; N18.3 Chronic kidney disease, stage 3 (moderate); G30.1 Alzheimer's disease with late onset; R06.02 Shortness of breath; R05 Cough; R41.0 Disorientation, unspecified; F02.80 Dementia in other diseases classified elsewhere, unspecified severity, without behavioral disturbance, psychotic disturbance, mood disturbance, and anxiety; E03.9 Hypothyroidism, unspecified; R33.9 Retention of urine, unspecified; N40.1 Benign prostatic hyperplasia with lower urinary tract symptoms; B96.89 Other specified bacterial agents as the cause of diseases classified elsewhere; Z99.81 Dependence on supplemental oxygen; G40.909 Epilepsy, unspecified, not intractable, without status epilepticus; E78.00 Pure hypercholesterolemia, unspecified; I25.2 Old myocardial infarction; Z95.5 Presence of coronary angioplasty implant and graft; K59.09 Other constipation; M54.9 Dorsalgia, unspecified; G89.29 Other chronic pain; F32.9 Major depressive disorder, single episode, unspecified; E53.8 Deficiency of other specified B group vitamins; Z85.820 Personal history of malignant melanoma of skin; Z85.038 Personal history of other malignant neoplasm of large intestine
CPT/HCPCS: 36415; 71045; 71250; 80053; 83605; 83880; 85025; 86140; 93005; 96360; 96361; 99285; A9270; J7030; 71046; 80048; 81001; 82150; 82945; 83615; 83735; 83986; 84157; 85027; 87015; 87070; 87086; 87088; 87102; 87116; 87186; 87205; 87206; 87220; 89050; 93010; 93306; 94762; J2543; J3475

== ENCOUNTER 2019-02-26 07:33 | Emergency (ER) | payer MEDICARE, OTHER, MEDICAID ==
--- NOTE | 2019-02-26 08:16 | EDM.PDOC ---
ED HPI GENERAL MEDICAL PROBLEM - General Chief Complaint: Genitourinary Problem Stated Complaint: [facility] Time Seen by Provider: 02/26/19 08:12 Source of Information: Reports: Patient History Limitations: Reports: No Limitations - History of Present Illness INITIAL COMMENTS - FREE TEXT/NARRATIVE: pt arrived by ambulance because he has a parekh cath which is putting pressure on the glands of ther penis and is causing a ulcer to develop. He is demented and because how he is positioning himself this pressure is chronicly in 1 area. He has had a suprapupic in the past. Onset: Gradual, Other ( This area of pressure is gradually happened ) Duration: Day(s): Location: Reports: Other ( tip of penis. ) Associated Symptoms: Reports: No Other Symptoms - Related Data Allergies Allergy/AdvReac Type Severity Reaction Status Date / Time No Known Allergies Allergy Verified 02/26/19 07:41 Home Meds: Home Meds Simvastatin [Zocor] 20 mg PO BEDTIME 11/25/17 [History] hydrALAZINE [Apresoline] 50 mg PO BID 11/25/17 [History] levETIRAcetam [Keppra] 500 mg PO BID 11/25/17 [History] Melatonin [Melatin] 9 mg PO BEDTIME #90 tablet 12/09/17 [Rx] Calcium Polycarbophil [Fiber Laxative] 625 mg PO DAILY 08/27/18 [History] Cyanocobalamin (Vitamin B-12) [Vitamin B-12] 1,000 mcg SL DAILY 08/27/18 [ History] DULoxetine HCl [Duloxetine HCl] 20 mg PO DAILY 08/27/18 [History] Gabapentin [Neurontin] 300 mg PO BEDTIME 08/27/18 [History] Levothyroxine [Synthroid] 50 mcg PO ACBREAKFAST 08/27/18 [History] Nystatin 100,000 unit PO BID 08/27/18 [History] Polyethylene Glycol 3350 [MiraLAX] 17 gm PO DAILY 08/27/18 [History] Furosemide [Lasix] 20 mg PO DAILY #30 tablet 08/31/18 [Rx] Metoprolol Tartrate 25 mg PO BID 02/26/19 [History] Past Medical History - Past Health History Medical/Surgical History: Denies Medical/Surgical History HEENT History: Reports: Glaucoma Cardiovascular History: Reports: Heart Failure, High Cholesterol, Hypertension, LA, Stents Gastrointestinal History: Reports: Chronic Constipation Genitourinary History: Reports: Chronic Renal Insuffiency, Retention, Urinary Other Genitourinary History: neuromuscular dysfunction of bladder Musculoskeletal History: Reports: Back Pain, Chronic, Fracture Neurological History: Reports: Alzheimers Disease, Seizure Other Neuro History: wedge compression fracture of T11-T12 Psychiatric History: Reports: Alzheimers Disease, Dementia, Depression Endocrine/Metabolic History: Reports: Hypothyroidism Hematologic History: Reports: B12 Deficiency Oncologic (Cancer) History: Reports: Colon, Malignant Melanoma Dermatologic History: Reports: Melanoma - Past Surgical History Cardiovascular Surgical History: Reports: Coronary Artery Stent GI Surgical History: Reports: Small Bowel Musculoskeletal Surgical History: Reports: ORIF Social & Family History - Family History Family Medical History: Unobtainable - Tobacco Use Smoking Status *Q: Unknown Ever Smoked - Caffeine Use Caffeine Use: Reports: Coffee Other Caffeine Use: 1 cup daily - Recreational Drug Use Recreational Drug Use: No ED ROS GENERAL - Review of Systems Review Of Systems: See Below Constitutional: Reports: No Symptoms HEENT: Reports: No Symptoms Respiratory: Reports: No Symptoms Cardiovascular: Reports: No Symptoms Endocrine: Reports: No Symptoms GI/Abdominal: Reports: No Symptoms : Reports: Other (opt has a ulcer on the ) Musculoskeletal: Reports: No Symptoms ED EXAM, RENAL/ - Physical Exam Exam: See Below Text/Narrative:: pt is a very confused pt who is not able to follow directions. Exam Limited By: No Limitations General Appearance: Alert, Anxious Ears: Normal TMs Nose: Normal Inspection Throat/Mouth: Normal Inspection Head: Atraumatic Respiratory/Chest: No Respiratory Distress Cardiovascular: Regular Rate, Rhythm (Male) Exam: Other (pt has a pressure ulcer from where the parekh cath is hitting the meatus . ) Rectal (Males) Exam: Deferred Back Exam: Normal Inspection Extremities: Normal Inspection Neurological: Other (pt is kirti confused. ) Course - Vital Signs Last Recorded V/S: Last Vital Signs Temp 35.7 C 02/26/19 07:53 Pulse 63 02/26/19 09:35 Resp 17 02/26/19 07:53 BP 136/58 L 02/26/19 09:35 Pulse Ox 95 02/26/19 09:35 - Orders/Labs/Meds Orders: Active Orders 24 hr Category Date Time Status CULTURE URINE [RM] Stat Lab 02/26/19 08:11 Received Labs: Laboratory Tests 02/26/19 02/26/19 02/26/19 Range/Units 08:23 08:23 08:33 WBC 8.2 (4.5-11.0) K/uL RBC 3.41 L (4.30-5.90) M/uL Hgb 11.5 L (12.0-15.0) g/dL Hct 34.4 L (40.0-54.0) % MCV 101 H (80-98) fL MCH 34 H (27-31) pg MCHC 33 (32-36) % Plt Count 160 (150-400) K/uL Neut % (Auto) 72 H (36-66) % Lymph % (Auto) 12 L (24-44) % [place] % (Auto) 11 H (2-6) % Eos % (Auto) 5 H (2-4) % Baso % (Auto) 0 (0-1) % Sodium 140 (140-148) mmol/L Potassium 4.5 (3.6-5.2) mmol/L Chloride 109 H (100-108) mmol/L Carbon Dioxide 21 (21-32) mmol/L Anion Gap 14.5 H (5.0-14.0) mmol/L BUN 31 H D (7-18) mg/dL Creatinine 1.2 (0.8-1.3) mg/dL Est Cr Clr Drug Dosing 42.11 mL/min Estimated GFR (MDRD) 57 L (>60) Glucose 102 (74-106) mg/dL Calcium 8.7 (8.5-10.1) mg/dL Total Bilirubin 0.4 (0.2-1.0) mg/dL AST 25 (15-37) U/L ALT 28 (12-78) U/L Alkaline Phosphatase 86 (46-116) U/L Total Protein 6.6 (6.4-8.2) g/dL Albumin 2.8 L (3.4-5.0) g/dL Globulin 3.8 H (2.3-3.5) g/dL Albumin/Globulin Ratio 0.7 L (1.2-2.2) Urine Color Yellow Urine Appearance Cloudy Urine pH 5.0 (4.5-8.0) Ur Specific [place] 1.010 (1.008-1.030) Urine Protein Trace (NEGATIVE) mg/dL Urine Glucose (UA) Normal (NEGATIVE) mg/dL Urine Ketones Negative (NEGATIVE) mg/dL Urine Occult Blood Trace (NEGATIVE) Urine Nitrite Positive H (NEGAITVE) Urine Bilirubin Negative (NEGATIVE) Urine Urobilinogen Normal (NORMAL) mg/dL Ur Leukocyte Esterase Moderate (NEGATIVE) Urine RBC 0-5 (0-5) Urine WBC 0-5 (0-5) Ur Epithelial Cells Not seen Amorphous Sediment Rare Urine Bacteria Many Urine Mucus Not seen Meds: Medications Discontinued Medications Generic Name Dose Route Start Last Admin Trade Name Freq PRN Reason Stop Dose Admin Levofloxacin 500 mg 02/26/19 10:29 Levaquin PO 02/26/19 10:30 ONETIME ONE - Re-Assessments/Exams Free Text/Narrative Re-Assessment/Exam: 02/26/19 10:41 the area was cleaned dressed with bacatracin and dressed to protect the meatus. Departure - Departure Time of Disposition: 10:30 Disposition: Home, Self-Care 01 Condition: Fair Clinical Impression: UTI (urinary tract infection), Parekh catheter in place, Sore of penis - Discharge Information Referrals: PCP,None [Primary Care Provider] - Forms: ED Department Discharge Care Plan Goals: Move up the urology appt that pt has to next week if possible, --consider a supra pupic cath. The penis needs to be dressed 3 times daily so there is no pressure on the glans from the cath, clean area well each time, apply bacatracin put a adaptic on first and then wrap the tip of the penis with ankita , cipro 500mg bid for 10 days. Urine culture is pending. - My Orders Last 24 Hours: My Active Orders 02/26/19 08:11 CULTURE URINE [RM] Stat - Assessment/Plan Last 24 Hours: My Active Orders 02/26/19 08:11 CULTURE URINE [RM] Stat
[2019-02-26] MEDS ORDERED: Levofloxacin 500 MG Tab PO ONE (10:29)
== END 2019-02-26 13:21 | disposition home or self-care (01) ==
LOC: JP.ED 07:33
DX: N39.0 Urinary tract infection, site not specified (principal); N48.29 Other inflammatory disorders of penis; I13.2 Hypertensive heart and chronic kidney disease with heart failure and with stage 5 chronic kidney disease, or end stage renal disease; N18.9 Chronic kidney disease, unspecified; I50.9 Heart failure, unspecified; I25.2 Old myocardial infarction; E03.9 Hypothyroidism, unspecified; Z79.890 Hormone replacement therapy; Z79.899 Other long term (current) drug therapy
CPT/HCPCS: 36415; 80053; 81001; 85025; 87086; 99283; A9270

== ENCOUNTER 2020-03-07 22:44 | Emergency (ER) | payer MEDICARE, OTHER, MEDICAID ==
[2020-03-07] MEDS ORDERED: Lidocaine 2% Jelly 10 ML Urojet MUCMEM ONE (23:27)
--- NOTE | 2020-03-07 23:47 | EDM.PDOC ---
ED HPI GENERAL MEDICAL PROBLEM - General Chief Complaint: Genitourinary Problem Stated Complaint: MEDICAL VIA [facility] Time Seen by Provider: 03/07/20 23:41 Source of Information: Reports: Patient History Limitations: Reports: No Limitations - History of Present Illness INITIAL COMMENTS - FREE TEXT/NARRATIVE: pt went to urology in today for a routine suprapupic cath [place]. It appears all went well but when he arrived back at the [facility] there was no drainage through the suprapupic. The nurses irrigated it and it did flow freely. There continued to be no draiinage present. Onset: Today Duration: Hour(s): Location: Reports: Other ( drainage from the urethra but no drainage in the supra pupic cath. ) Associated Symptoms: Reports: No Other Symptoms Treatments [employer]OCIATE: Reports: See EMS Report - Related Data Allergies Allergy/AdvReac Type Severity Reaction Status Date / Time No Known Allergies Allergy Verified 03/07/20 22:49 Home Meds: Home Meds Simvastatin [Zocor] 20 mg PO BEDTIME 11/25/17 [History] hydrALAZINE [Apresoline] 50 mg PO BID 11/25/17 [History] levETIRAcetam [Keppra] 500 mg PO BID 11/25/17 [History] Melatonin [Melatin] 9 mg PO BEDTIME #90 tablet 12/09/17 [Rx] Calcium Polycarbophil [Fiber Laxative] 625 mg PO DAILY 08/27/18 [History] Cyanocobalamin (Vitamin B-12) [Vitamin B-12] 1,000 mcg SL DAILY 08/27/18 [History] Gabapentin [Neurontin] 300 mg PO BEDTIME 08/27/18 [History] Levothyroxine [Synthroid] 50 mcg PO ACBREAKFAST 08/27/18 [History] Nystatin 100,000 unit PO BID 08/27/18 [History] polyethylene glycoL 3350 [MiraLAX] 17 gm PO DAILY 08/27/18 [History] Furosemide [Lasix] 20 mg PO DAILY #30 tablet 08/31/18 [Rx] Metoprolol Tartrate 25 mg PO BID 02/26/19 [History] DULoxetine HCl [Duloxetine HCl] 20 mg PO DAILY 03/07/20 [History] amLODIPine [Norvasc] 5 mg PO DAILY 03/07/20 [History] Past Medical History - Past Health History Medical/Surgical History: Denies Medical/Surgical History HEENT History: Reports: Glaucoma Cardiovascular History: Reports: Heart Failure, High Cholesterol, Hypertension, [place], Stents Gastrointestinal History: Reports: Chronic Constipation Genitourinary History: Reports: BPH, Chronic Renal Insuffiency, Retention, Urinary, UTI, Recurrent Other Genitourinary History: neuromuscular dysfunction of bladder Musculoskeletal History: Reports: Back Pain, Chronic, Fracture Neurological History: Reports: Alzheimers Disease, Seizure Other Neuro History: wedge compression fracture of T11-T12 Psychiatric History: Reports: Alzheimers Disease, Dementia, Depression Endocrine/Metabolic History: Reports: Hypothyroidism Hematologic History: Reports: B12 Deficiency Oncologic (Cancer) History: Reports: Colon, Malignant Melanoma Dermatologic History: Reports: Melanoma - Past Surgical History Cardiovascular Surgical History: Reports: Coronary Artery Stent GI Surgical History: Reports: Small Bowel Musculoskeletal Surgical History: Reports: ORIF Social & Family History - Family History Family Medical History: Unobtainable - Tobacco Use Smoking Status *Q: Never Smoker - Caffeine Use Caffeine Use: Reports: Coffee Other Caffeine Use: 1 cup daily - Recreational Drug Use Recreational Drug Use: No ED ROS GENERAL - Review of Systems Review Of Systems: See Below Constitutional: Reports: No Symptoms HEENT: Reports: No Symptoms Respiratory: Reports: No Symptoms Cardiovascular: Reports: No Symptoms Endocrine: Reports: No Symptoms GI/Abdominal: Reports: No Symptoms : Reports: Other ( bladder is full and there is no draiage from the suprapupic. ) ED EXAM, RENAL/ - Physical Exam Exam: See Below Text/Narrative:: pt is having a malfution on the suprapupic cath. Exam Limited By: No Limitations General Appearance: Alert, Anxious (Male) Exam: Other ( the bulb of ther supra pupic was let down and then put up. It was irrigated and it appeared to irrigate well. This pt has a history of having difficulty with placement of suprapupic caths. The fa we were able to get a size 14 parekh in to drain his bladder. [facility] and [facility] can be contacted tomorrow. The family is interested in having urology place the supra pupic cath because of problems in the past. ) Course - Vital Signs Last Recorded V/S: Last Vital Signs Temp 37.5 C 03/07/20 22:55 Pulse 61 03/07/20 22:55 Resp 16 03/07/20 22:55 BP 117/47 L 03/07/20 22:55 Pulse Ox 90 L 03/07/20 22:55 - Orders/Labs/Meds Orders: Active Orders 24 hr Category Date Time Status Bladder Scan [RC] ASDIRECTED Care 03/07/20 22:48 Active COMPREHENSIVE METABOLIC PN,CMP [CHEM] Urgent Lab 03/07/20 23:15 Received Labs: Laboratory Tests 03/07/20 Range/Units 23:15 WBC 11.8 H (4.5-11.0) K/uL RBC 3.44 L (4.30-5.90) M/uL Hgb 11.0 L (12.0-15.0) g/dL Hct 34.1 L (40.0-54.0) % MCV 99 H (80-98) fL MCH 32 H (27-31) pg MCHC 32 (32-36) % Plt Count 177 (150-400) K/uL Neut % (Auto) 86 H (36-66) % Lymph % (Auto) 5 L (24-44) % Morris % (Auto) 8 H (2-6) % Eos % (Auto) 0 L (2-4) % Baso % (Auto) 0 (0-1) % Meds: Medications Discontinued Medications Generic Name Dose Route Start Last Admin Trade Name Freq PRN Reason Stop Dose Admin Lidocaine HCl 10 ml 03/07/20 23:27 Xylocaine 2% Jelly MUCMEM 03/07/20 23:28 ONETIME ONE - Re-Assessments/Exams Free Text/Narrative Re-Assessment/Exam: 03/07/20 23:51 size 14 parekh was placed and good drainage was obtained. Departure - Departure Time of Disposition: 23:51 Disposition: Home, Self-Care 01 Condition: Fair Clinical Impression: Suprapubic catheter dysfunction - Discharge Information Referrals: Bogdan Roe MD [Primary Care Provider] - Care Plan Goals: leave parekh in until the suprapupic can be replaced. Sepsis Event Note (ED) - Evaluation Sepsis Screening Result: No Definite Risk - Focused Exam Vital Signs: Vital Signs Temp Pulse Resp BP Pulse Ox 03/07/20 22:55 37.5 C 61 16 117/47 L 90 L 03/07/20 22:47 37.5 C 61 16 117/47 L 90 L - My Orders Last 24 Hours: My Active Orders 03/07/20 22:48 Bladder Scan [RC] ASDIRECTED 03/07/20 23:15 COMPREHENSIVE METABOLIC PN,CMP [CHEM] Urgent - Assessment/Plan Last 24 Hours: My Active Orders 03/07/20 22:48 Bladder Scan [RC] ASDIRECTED 03/07/20 23:15 COMPREHENSIVE METABOLIC PN,CMP [CHEM] Urgent
== END 2020-03-08 00:40 | disposition home or self-care (01) ==
LOC: JP.ED 22:44
DX: T83.090A Other mechanical complication of cystostomy catheter, initial encounter (principal); I13.0 Hypertensive heart and chronic kidney disease with heart failure and stage 1 through stage 4 chronic kidney disease, or unspecified chronic kidney disease; I50.9 Heart failure, unspecified; N18.9 Chronic kidney disease, unspecified; E78.00 Pure hypercholesterolemia, unspecified; I25.2 Old myocardial infarction; F32.9 Major depressive disorder, single episode, unspecified; G30.9 Alzheimer's disease, unspecified; F02.80 Dementia in other diseases classified elsewhere, unspecified severity, without behavioral disturbance, psychotic disturbance, mood disturbance, and anxiety; E03.9 Hypothyroidism, unspecified; Z95.5 Presence of coronary angioplasty implant and graft; Z79.899 Other long term (current) drug therapy
CPT/HCPCS: 36415; 51702; 51798; 80053; 85025; 99284